=== PATIENT | male | born 1955 | race Caucasian/White ===

== ENCOUNTER 2024-11-25 12:27 | Outpatient (OUT) | payer MEDICARE, OTHER, SELFPAY ==
--- NOTE | 2024-11-25 12:36 | ECG_ITS ---
The [facility] Test Date: 2024-11-25 Pat Name: EVI NDIAYE Department: Room: - Gender: Male [employer]: : 1955 Requested By: MYRTLE MEJIA Order Number: [id number] Reading MD: EDER AWAD Measurements Intervals [place] Rate: 60 P: 67 CT: 165 QRS: 7 QRSD: 105 T: 51 QT: 417 QTc: 417 Interpretive Statements SINUS RHYTHM No previous ECG available for comparison Electronically Signed On 11-26-2024 6:59:49 EST by EDER AWAD
--- NOTE | 2024-11-25 12:36 | XR_ITS ---
The [address] [address] Patient Name: EVI NDIAYE MRN: [id number] date: 1955 Sex: M Assigned Patient Location: [facility] Current Patient Location: Accession/Order Number: [id number] Exam Date: 11/25/2024 13:12 Report Date: 11/26/2024 07:16 At the request of: MYRTLE MEJIA Procedure: XR chest 2V EXAMINATION: XR chest 2V HISTORY: Preop exam COMPARISON: No relevant comparison available. TECHNIQUE: PA and lateral FINDINGS: LUNGS: No significant pulmonary parenchymal abnormalities. VASCULATURE: No increased pulmonary vasculature. PLEURA: No pneumothorax, effusion, or pleural thickening. CARDIAC: No cardiomegaly or cardiac silhouette abnormality. MEDIASTINUM: No visible mass or adenopathy. BONES: No fracture or visible bone lesion. OTHER: Negative. XR/XR chest 2V IMPRESSION: No acute cardiopulmonary process Electronically authenticated by: DARYN VILA Date: 11/26/2024 07:16
--- NOTE | 2024-11-25 13:14 | P.GSHP_ITS ---
History of Present Illness History of Present Illness Chief complaint: prostate cancer Narrative: Patient presents for presurgical testing accompanied by his . The patient states he had an elevated PSA followed by an abnormal prostate biopsy. The patient states he had brachytherapy about 11 years ago for prostate cancer. He denies visible hematuria, dysuria, abdominal pain, fever, or any other complaints. Review of Systems ROS Narrative REVIEW OF SYSTEMS: Negative except as stated in HPI, ten or more systems reviewed. Constitutional: No fever, chills, weakness ENT: No sore throat or epistaxis Cardiovascular: No edema, chest pain, palpitations, or activity intolerance Respiratory: No shortness of breath, cough, or wheezing Musculoskeletal: No joint pain or swelling Gastrointestinal: No abdominal pain, constipation, diarrhea, or vomiting Genitourinary: No dysuria or visible hematuria Neurological: No numbness, tingling, weakness, or headache Psychiatric: No mood changes PFSH PFSH Medical History (Updated 11/25/24 @ 13:11 by Marquita Azar NP) History of brachytherapy ?Z92.3 - Personal history of irradiation (ICD-10) Neck pain ?M54.2 - Cervicalgia (ICD-10) Arthritis ?M19.90 - Unspecified osteoarthritis, unspecified site (ICD-10) Snores ?R06.83 - Snoring (ICD-10) Cataract ?H26.9 - Unspecified cataract (ICD-10) Nocturia ?R35.1 - Nocturia (ICD-10) Erectile dysfunction ?N52.9 - Male erectile dysfunction, unspecified (ICD-10) Kidney stones ?N20.0 - Calculus of kidney (ICD-10) Hematuria ?R31.9 - Hematuria, unspecified (ICD-10) Prostate cancer ?C61 - Malignant neoplasm of prostate (ICD-10) Surgical History (Updated 11/25/24 @ 13:11 by Marquita Azar NP) H/O cystoscopy ?Z98.890 - Other specified postprocedural states (ICD-10) History of colonoscopy ?Z98.890 - Other specified postprocedural states (ICD-10) History of appendectomy ?Z90.49 - Acquired absence of other specified parts of digestive tract (ICD- 10) History of arthroscopy of knee ?Z98.890 - Other specified postprocedural states (ICD-10) Hx of prostate biopsy ?Z98.890 - Other specified postprocedural states (ICD-10) History of cataract extraction with lens replacement (09/2024) Family History (Updated 11/25/24 @ 12:50 by Marquita Azar NP) Other Family history of diabetes mellitus Family history of lung cancer Family history of myocardial infarction Family history of prostate cancer Family history of seizures Social History (Updated 11/25/24 @ 12:47 by Marquita Azar NP) Within the past year, how often did you have a drink containing alcohol: never Score interpretation: A score less than 4 is consistent with normal alcohol consumption. Smoking status: Former smoker Non-prescribed substance use: denies use Highest level of school completed/degree received: Associate degree: academic program Meds Home Medications and Allergies Home Medications ?Medication ?Instructions ?Recorded ?Confirmed ?Type melatonin 10 mg capsule 10 mg PO DAILY 11/25/24 11/25/24 History Allergies Allergy/AdvReac Type Severity Reaction Status Date / Time No Known Drug Allergies Allergy Verified 11/25/24 12:41 Exam Narrative Exam Narrative: Constitutional: Awake, alert, comfortable, well-appearing, nontoxic, interactive, vital signs as charted Head: Normocephalic, atraumatic Neck: Supple, normal appearance, normal range of motion, no meningeal signs, no lymphadenopathy Respiratory: No respiratory distress, breath sounds clear Cardiovascular: Regular rate and rhythm, strong and regular heart tones Abdomen: Nontender, normal bowel sounds, soft, no CVA tenderness Musculoskeletal: Normal gait, no swelling or edema Skin: No rashes or induration, no lesions, only visible skin inspected Neuro: No neurological deficits, normal sensation Psychiatric: Oriented ?3, normal affect Assessment and Plan Assessment and Plan (1) Prostate cancer: Plan [facility] seed implant scheduled with Dr. Dykes December 12, 2024.
[2024-11-25 13:18] LABS: Basophils Percent Auto 0.5 % (0.2-2.0); Eosinophils Absolute Auto 0.2 10^3/uL (0.0-0.7); Eosinophils Percent Auto 2.6 % (0.9-7.0); Hematocrit 43.3 % (42.0-54.0); Hemoglobin 14.8 g/dL (14.0-18.0); Immature Granulocytes Abs Auto 0.03 10^3/uL (0.00-0.03); Immature Granulocytes Pct Auto 0.4 % (0.0-0.5); Lymphocytes Absolute Auto 1.8 10^3/uL (1.2-3.8); Lymphocytes Percent Auto 23.2 % (20.5-60.0); Mean Corpuscular HGB Conc 34.2 g/dL (29.9-35.2); Mean Corpuscular Hemoglobin 32.1 pg (25.9-34.0); Mean Corpuscular Volume 93.9 fL (80.0-94.0); Monocytes Absolute Auto 0.6 10^3/uL (0.3-0.8); Monocytes Percent Auto 8.1 % (1.7-12.0); Neutrophils Absolute Auto 5.2 10^3/uL (1.4-6.5); Neutrophils Percent Auto 65.2 % (43.0-75.0); Platelet Count 278 10^3/uL (150-450); Red Blood Count 4.61 10^6/uL (4.70-6.10); Red Cell Distribution Width 12.6 % (11.0-15.0); White Blood Count 7.9 10^3/uL (4.0-11.0)
[2024-11-25 13:24] LABS: Anion Gap 11.8; BUN Creatinine Ratio 27.5; Calcium 8.9 mg/dL (8.5-10.1); Carbon Dioxide 28.1 mmol/L (21.0-32.0); Chloride 106 mmol/L (98-107); Estimated GFR (African America >60 (>=60 mL/min/1.73m^2); Estimated GFR (Non-African Ame >60 (>=60 mL/min/1.73m^2); Glucose 109 mg/dL (74-106); Potassium 3.9 mmol/L (3.5-5.1); Sodium 142 mmol/L (136-145)
[2024-11-25 13:34] LABS: Partial Thromboplastin Time 26.8 sec (22.3-36.2); Prothrombin Time 10.6 sec (9.0-11.6)
== END 2024-11-25 12:28 | disposition home or self-care (01) ==
LOC: PST 12:28
PROVIDERS: PCP Internal Medicine; Visit Provider Urology
DX: Z01.810 Encounter for preprocedural cardiovascular examination (principal); Z01.812 Encounter for preprocedural laboratory examination; Z01.818 Encounter for other preprocedural examination; C61 Malignant neoplasm of prostate; R31.9 Hematuria, unspecified; N20.0 Calculus of kidney
CPT/HCPCS: 71046; 80048; 85025; 85610; 85730; 93005; G0463

== ENCOUNTER 2024-12-12 07:03 | Day surgery (SDC) | payer MEDICARE, OTHER, SELFPAY ==
[2024-11-25 13:02] VITALS: BP 148/81; PULSE 61; TEMP 36.3; O2SAT 97; BMI 29.2
--- OUTSIDE RECORDS SUMMARY | 2024-12-12 07:07 | XMS_ITS | CCD ---
Author Organization [facility] Care Team Providers Care Vocational Rehabilitation Counselor Name Role Phone Kendrick Swenson Primary Care Provider Joseph JOHN, Awais Primary Care Provider Kendrick Swenson MD Primary Care Provider Back , Awais Primary Care Provider Back Awais JOHN Primary Care Provider [phone] Back , Awais Primary Care Provider [phone] Back , Awais Primary Care Provider BACK AWAIS Primary Care Physician Back , Awais Primary Care Provider BackLuiz Primary Care Provider Kendrick Swenson MD Primary Care Provider Luiz Ruiz MD Primary Care Provider MD Myrtle Mejia Attending Provider Myrtle Mejia Attending Unavailable Myrtle Mejia Admitting Unavailable HERBERTH BALL Attending Unavailable VIN NG Referring Unavailable HERBERTH BALL Attending Unavailable Myrtle MEJIA R Attending Unavailable MEJIA, Myrtle R Attending Unavailable MEJIA, Myrtle R Attending Unavailable MEJIA, Myrtle R Attending Unavailable MEJIA, Myrtle R Attending Unavailable MEJIA, Myrtle R Referring Unavailable MEJIA, Myrtle R Attending Unavailable MEJIA, Myrtle R Attending Unavailable MEJIA, Myrtle R Attending Unavailable BACK, AWAIS Primary Care Unavailable BACK, AWAIS Referring Unavailable ZACHARY LEDESMA Referring Unavaila ble BACK, AWAIS Primary Care Unavailable BACK, AWAIS Primary Care Unavailable MEJIA, MYRTLE R Referring Unavailable MEJIA, MYRTLE R Referring Unavailable BACK, AWAIS Primary Care Unavailable BACK, AWAIS Referring Unavailable BACK, AWAIS Primary Care Unavailable SECOKKENDRICK Primary [facility] OLGAROlivia Attending Unavailable VALENCIAELEOlivia Lechuga Referring Unavailable BACK [facility] Primary Care Unavailable ENGELEROlivai Attending Unavailable ENGELEROlivia Referring Unavailable BACK, [facility] Primary Care Unavailable ENGELEROlivia Attending Unavailable BACK, [facility] Primary Care Unavailable OLGAROlivia Attending Unavailable SECOK KENDRICK CHRISTIANO Primary [facility] Allergies Allergy Classification Reported Allergen(s) Allergy Type Date of Onset Reaction(s) Facility (1 source) No Known Medication Allergies; Translations: [No Known Medication Allergies] Propensity to adverse reactions (disorder) [facility] Repository Medications Current Medications Medication Drug Class(es) Dates Sig (Normalized) Sig (Original) acetaminophen 325 mg oral tablet (3 sources) Start: 09-04-2020 take 2 tablets by mouth every four hours as needed for pain Tylenol 325 mg Tab 650 mg = 2 tab(s), Oral, q4hr, PRN as needed for pain Start Date: 09/04/20 Status: Ordered diphenhydrAMINE (4 sources) Histamine-1 Receptor Antagonist diphenhydrAMINE HCl (BENADRYL PO) Take by mouth 0 Active fluticasone propionate 0.05 mg/actuat metered dose nasal spray (2 sources) Corticosteroid Start: 03-18-2019 fluticasone (FLONASE) 50 MCG/ACT nasal spray Indications: Middle ear effusion, left 1 spray by Nasal route daily for 7 days 1 Bottle 0 03/18/2019 Active ibuprofen 200 mg oral tablet (20 sources) Nonsteroidal Anti-inflammatory Drug Start: 08-28-2020 take 3 tablets by mouth once daily as needed for pain ibuprofen 200 mg Tab 3, Oral, Daily, PRN as needed for pain, Refills(s) 0, Pain Start Date: 08/28/20 Status: Ordered take 1 tablet by jabier th every six hours as needed ibuprofen (ADVIL;MOTRIN) 200 MG tablet T subha 200 mg by mouth every 6 hours as needed. Active ketorolac tromethamine 5 mg/ml ophthalmic solution (1 source) Nonsteroidal Anti-inflammatory Drug, Cyclooxygenase Inhibitor Start: 08-27-2024 End: 09-26-2024 take 1 drop(s) into the eye(s) in the morning ketorolac (Acular) 0.5 % ophthalmic solution Indications: Age-related nuclear cataract of both eyes Administer 1 drop into affected eye(s) in the morning and 1 drop before bedtime. 5 mL 1 08/27/2024 09/26/2024 Active Leuprolide (4 sources) Gonadotropin Releasing Hormone Receptor Agonist leuprolide acetate (LUPRON DEPOT, 6 MONTH, INTRAMUSC.) Inject intramuscularly. Active ofloxacin 3 mg/ml ophthalmic solution (1 source) Quinolone Antimicrobial Start: 08-27-2024 End: 08-28-2024 take 1 drop(s) into the eye(s) five times daily ofloxacin (Ocuflox) 0.3 % ophthalmic solution Indications: Age-related nuclear cataract of both eyes Administer 1 drop into the right eye 5 (five) times a day for 1 day Starting 1 day before surgery, continue after surgery as directed 5 mL 1 08/27/2024 08/28/2024 Active prednisoLONE acetate 10 mg/ml ophthalmic suspension (1 source) Corticosteroid Start: 08-27-2024 End: 09-10-2024 prednisoLONE acetate (Pred-Forte) 1 % ophthalmic suspension Indications: Age-related nuclear cataract of both eyes Administer 1 drop into both eyes in the morning and 1 drop at noon and 1 drop in the evening and 1 drop before bedtime. Do all this for 14 days. 5 mL 1 08/27/2024 09/10/2024 Active Completed/Discontinued Medications Medication Drug Class(es) Dates Sig (Normalized) Sig (Original) gadobenate dimeglumine (MULTIHANCE) injection 20 mL (1 source) Start: 07-16-2024 End: 07-16-2024 take 1 dose intravenously once 20 mL, IntraVENous, IMG ONCE PRN, 1 dose, Starting on Mon07/16/24 at 0934, Until Mon07/16/24 at 1000, Other iv contrast (will be provided with radiology test) (2 sources) Start: 07-11-2024 End: 07-12-2024 iv contrast (will be provided with radiology test) MRI Liver Inject, intravenously, once for 1 dose. No IV access, insert saline lock prior to the beginning of sedation, infusion, injection of imaging exam. Discontinue saline lock post exam. If Pt. has a central line or IVAD, may access for administration according to line specific nursing protocol. Once exam is complete flush line and de-access according to line specific nursing protocol in the MR contrast administration guidelines link. 1 Each 07/11/2024 07/12/2024 Start: 07-11-2024 End: 07-12-2024 iv contrast (will be provide d with radiology test) MRI Prostate Inject, intravenously, once for 1 dose. No IV access, insert saline lock prior to the beginning of sedation, infusion, injection of imaging exam. Discontinue saline lock post exam. If Pt. has a central line or IVAD, may access for administration according to line specific nursing protocol. Once exam is complete flush line and de-access according to line specific nursing protocol in the MR contrast administration guidelines link. 1 Each 07/11/2024 07/12/2024 Problems Active Problems Problem Classification Problem Date Documented Da te Episodic/Chronic Calculus of urinary tract (11 sources) H/O: urinary stone; Translations: [Personal history of urinary calculi] Onset: 12-19-2022 Episodic Cancer of prostate (7 sources) Malignant tumor of prostate; Translations: [Malignant neoplasm of prostate] Onset: 09-10-2024 08-30-2024 Chronic Cataract (7 sources) Bilateral age-related nuclear cataracts; Translations: [Age-related nuclear cataract, bilateral] Onset: 08-27-2024 08-27-2024 Chronic Diabetes mellitus without complication (3 sources) Hyperglycemia; Translations: [Hyperglycemia, unspecified] Onset: 10-01-2024 Episodic Genitourinary symptoms and ill-defined conditions (8 sources) Microscopic hematuria; Translations: [Other microscopic hematuria] Onset: 12-19-2022 Episodic Joint disorders and dislocations; trauma-related (4 sources) Tear of medial meniscus of knee; Translations: [Other tear of medial meniscus, current injury, right knee, initial encounter] Episodic Comment on above: right Joint disorders and dislocations; trauma-related (1 source) Internal derangement of left knee; Translations: [Internal derangement of left knee] Osteoarthritis (7 sources) Osteoarthritis of knee; Translations: [Primary gonarthrosis, bilateral] Onset: 10-09-2023 08-28-2020 Chronic Other gastrointestinal disorders (1 source) Diarrhea; Translations: [Diarrhea, unspecified] 12-03-2024 Episodic Other gastrointestinal disorders (1 source) Diarrhea, unspecified; Translations: [Diarrhea, unspecified] Onset: 12-03-2024 Episodic Other liver diseases (1 source) Lesion of liver; Translations: [Liver disease, unspecified] 07-16-2024 Chronic Other liver diseases (1 source) Liver disease, unspecified; Translations: [Liver disease, unspecified] Onset: 07-16-2024 Chronic Other male genital disorders (3 sources) Impotence 11-15-2019 Chronic Other non-traumatic joint disorders (1 source) Pain in right knee; Translations: [Pain in right knee] Episodic Other non-traumatic joint disorders (1 source) Pain in left knee; Translations: [Left knee pain, unspecified chronicity] Other screening for suspected conditions (not mental disorders or infectious disease) (20 sources) Patient encounter status; Translations: [Encounter for screening for malignant neoplasm of colon] Onset: 11-14-2012 Resolved: 09-24-2018 09-24-2018 Episodic Residual codes; unclassified (1 source) Pain; Translations: [Pain, unspecified] Episodic Unclassified (3 sources) Asymptomatic microscopic hematuria 12-19-2022 Past or Other Problems Problem Classification Problem Date Documented Da te Episodic/Chronic Cancer of prostate (20 sources) History of malignant neoplasm of prostate; Translations: [Personal history of malignant neoplasm of prostate] Onset: 06-19-2014 03-18-2019 Episodic Other and unspecified benign neoplasm (20 sources) Tubular adenoma of colon; Translations: [Benign neoplasm of colon, unspecified] Onset: 11-22-2012 11-22-2012 Episodic Other and unspecified benign neoplasm (20 sources) Tubular adenoma ; Translations: [Benign neoplasm, unspecified site] Onset: 11-22-2012 Resolved: 11-22-2012 11-22-2012 Episodic Unclassified (5 sources) Patient encounter status; Translations: [Colon cancer screening] Onset: 11-14-2012 Resolved: 09-24-2018 09-24-2018 Unclassified (8 sources) Onset: 09-29-2022 Resolved: 10-09-2023 10-09-2023 Viral infection (11 sources) COVID-19; Translations: [Other specified viral infection] Onset: 11-09-2021 11-09-2021 Episodic Results Test Name Value Interpretation Reference Range Facility CBC with Auto Differentialon 12-03-2024 Basophils (Bld) [#/Vol] 0.05 10*3/uL [facility] Immature granulocytes (Bld) [#/Vol] 0.02 10*3/uL [facility] Interpretation and review of laboratory results Abnormal [facility] Lymphocytes/100 WBC (Bld) 1.56 % [facility] Monocytes/100 WBC (Bld) 0.62 % [facility] Neutrophils/100 WBC (Bld) 60 % 39 - 75 % [facility] Segmented neutrophils/100 WBC (Bld) 3.96 % [facility] WBC other (Bld) [#/Vol] 6.5 [facility] CBC with Diffon 12-03-2024 Basophils/100 WBC (Bld) 1 % Normal 0-2 [facility] Comment on above: Performed By: #### L TIA POSADA, CDP #### [facility] [address] [place] [address] Manager Export: Mathew Alanis MD Eosinophils (Bld) [#/Vol] 0.30 10*3/uL Normal 0.00-0.40 [facility] Comment on above: Performed By: #### L TIA POSADA, CDP #### [facility] [address] [place] [phone] Manager Export: Mathew Alanis MD Eosinophils/100 WBC (Bld) 5 % Normal 0-5 [facility] Comment on above: Performed By: #### L SWETHA CP, CDP #### [facility] [address] [place] [address] Manager Export: Mathew Alanis MD Erythrocyte distribution width (RBC) [Ratio] 12.5 % Normal 12.1-15.2 [facility] Comment on above: Performed By: #### L SWETHA CP, CDP #### [facility] [address] [place] [phone] Manager Export: Mathew Alanis MD Hematocrit (Bld) [Volume fraction] 42.9 % Normal 41.0-53.0 [facility] Comment on above: Performed By: #### L TIA POSADA, CDP #### [facility] [address] [place], [place] [id number] Manager Export: Mathew Alanis MD Hemoglobin (Bld) [Mass/Vol] 14.8 g/dL Normal 13.5-17.5 [facility] Comment on above: Performed By: #### L TIA POSADA, CDP #### [facility] [address] [place], [place] [phone] Manager Export: Mathew Alanis MD Immature granulocytes/100 WBC (Bld) 0 % Normal 0-5 [facility] Comment on above: Performed By: #### L TIA POSADA, CDP #### [facility] [address] [place], [place] [phone] Manager Export: Mathew Alanis MD Lymphocytes/100 WBC (Bld) 24 % Normal 13-44 [facility] Comment on above: Performed By: #### L TIA POSADA, CDP #### [facility] [address] [place], [place] [id number] Manager Export: Mathew Alanis MD MCH (RBC) [Entitic mass] 31.8 pg Normal 26.0-34.0 [facility] Comment on above: Performed By: #### L TIA POSADA, CDP #### [facility] [address] [place], [place] [id number] Manager Export: Mathew Alanis MD MCHC (RBC) [Mass/Vol] 34.5 g/dL Normal 31.0-37.0 [facility] Comment on above: Performed By: #### L TIA POSADA, CDP #### [facility] [address] [place] [address] Manager Export: Mathew Alanis MD MCV (RBC) [Entitic vol] 92.1 fL Normal 80.0-100.0 [facility] Comment on above: Performed By: #### L TIA POSADA, CDP #### [facility] [address] [place] [address] Manager Export: Mathew Alanis MD Monocytes/100 WBC (Bld) 10 % High 5-9 [facility] Comment on above: Performed By: #### L TIA POSADA, CDP #### [facility] [address] [place] [address] Manager Export: Mathew Alanis MD Platelet mean volume (Bld) [Entitic vol] 10.1 fL Normal 6.0-12.0 [facility] Comment on above: Performed By: #### L TIA POSADA, CDP #### [facility] [address] [place] [address] Manager Export: Mathew Alanis MD Platelets (Bld) [#/Vol] 261 10*3/uL Normal 140-450 [facility] Comment on above: Performed By: #### L TIA POSADA, CDP #### [facility] [address] [place] [phone] Manager Export: Mathew Alanis MD RBC (Bld) [#/Vol] 4.66 10*6/uL Normal 4.50-5.90 [facility] Comment on above: Performed By: #### L TIA POSADA, CDP #### [facility] [address] [place] [address] Manager Export: Mathew Alanis MD Abs. Basophil 0.05 k/uL Normal 0.00-0.20 [facility] Comment on above: Performed By: #### L TIA POSADA, CDP #### [facility] [address] [place] [address] Manager Export: Mathew Alanis MD Abs.Imm.Granulocyte 0.02 k/uL Normal 0.00-0.30 [facility] Comment on above: Performed By: #### L IP CP, CDP #### [facility] [address] [place] [address] Manager Export: Matehw Alanis MD Abs.Neutrophil (Seg) 3.96 k/uL Normal 2.1-6.5 [facility] Comment on above: Performed By: #### L SWETHA CP, CDP #### [facility] [address] [place] [address] Manager Export: Mathew Alanis MD Lymphocytes (Bld) [#/Vol] 1.56 10*3/uL Normal 1.00-4.80 [facility] Comment on above: Performed By: #### L SWETHA CP, CDP #### [facility] [address] [place] [address] Manager Export: Mathew Alanis MD Monocytes (Bld) [#/Vol] 0.62 10*3/uL Normal 0.00-1.00 [facility] Comment on above: Performed By: #### L SWETHA CP, CDP #### [facility] [address] [place] [address] Manager Export: Mathew Alanis MD Neutrophil (Seg) 60 % Normal 39-75 [facility] Comment on above: Performed By: #### L SWETHA CP, CDP #### [facility] [address] [place] [address] [phone]) Manager Export: Mathew Alanis MD WBC (Bld) [#/Vol] 6.5 10*3/uL Normal 3.5-11.0 [facility] Comment on above: Performed By: #### L SWETHA CP, CDP #### [facility] [address] [place] [address] Manager Export: Mathew Alanis MD Comp Metabolic Profon 2024 Albumin [Mass/Vol] 4.2 g/dL Normal 3.5-5.2 [facility] Comment on above: Performed By: #### L IP, CP, CDP #### [facility] [address] [place], [place] [phone] Manager Export: Mathew Alanis MD Alkaline Phos 84 U/L Normal 40-129 [facility] Comment on above: Performed By: #### L IP, CP, CDP #### [facility] [address] [place], [place] [phone] Manager Export: Mathew Alanis MD ALT [Catalytic activity/Vol] 20 U/L Normal 5-41 [facility] Comment on above: Performed By: #### L IP, CP, CDP #### [facility] [address] [place], [place] [phone] Manager Export: Mathew Alanis MD Anion gap [Moles/Vol] 8 mmol/L Low 9-17 [facility] Comment on above: Performed By: #### L IP, CP, CDP #### [facility] [address] [place], [place] [phone] Manager Export: Mathew Alanis MD AST [Catalytic activity/Vol] 20 U/L Normal <40 [facility] Comment on above: Performed By: #### L IP, CP, CDP #### [facility] [address] [place], [place] [phone] Manager Export: Mathew Alanis MD Bilirubin [Mass/Vol] 0.6 mg/dL Normal 0.3-1.2 [facility] Comment on above: Performed By: #### L IP, CP, CDP #### [facility] [address] [place] [address] Manager Export: Mathew Alanis MD BUN/CRE Ratio 21 High 9-20 [facility] Comment on above: Performed By: #### L IP, CP, CDP #### [facility] [address] [place] [address] Manager Export: Mathew Alanis MD Calcium [Mass/Vol] 9.1 mg/dL Normal 8.6-10.4 [facility] Comment on above: Performed By: #### L IP, CP, CDP #### [facility] [address] [place], [place] [phone] Manager Export: Mathew Alanis MD Chloride [Moles/Vol] 101 mmol/L Normal 98-107 [facility] Comment on above: Performed By: #### L IP, CP, CDP #### [facility] [address] [place] [address] Manager Export: Mathew Alanis MD CO2 [Moles/Vol] 28 mmol/L Normal 20-31 [facility] Comment on above: Performed By: #### L IP, CP, CDP #### [facility] [address] [place] [address] Manager Export: Mathew Alanis MD Creatinine [Mass/Vol] 1.0 mg/dL Normal 0.7-1.2 [facility] Comment on above: Performed By: #### L SWETHA CP, CDP #### [facility] [address] [place] [address] Manager Export: Mathew Alanis MD GFR/1.73 sq M.predicted among non-blacks MDRD (S/P/Bld) [Vol rate/Area] 81 mL/min/{1.73_m2} Normal >60 [facility] Comment on above: Result Comment: These results are not intended for use in patients <18 years of age. eGFR results are calculated without a race factor using the 2020 CKD-EPI equation. Careful clinical correlation is recommended, particularly when comparing to results calculated using previous equations. The CKD-EPI equation is less accurate in patients with extremes of muscle mass, extra-renal metabolism of creatine, excessive creatine ingestion, or following therapy that affects renal tubular secretion. Performed By: #### L IP, CP, CDP #### [facility] [address] [place], [place] [phone] Manager Export: Mathew Alanis MD Glucose [Mass/Vol] 82 mg/dL Normal 70-99 [facility] Comment on above: Performed By: #### L IP CP, CDP #### [facility] [address] [place], [place] [phone] Manager Export: Mathew Alanis MD Potassium [Moles/Vol] 4.0 mmol/L Normal 3.7-5.3 [facility] Comment on above: Performed By: #### L IP CP, CDP #### [facility] [address] [place], [place] [phone] Manager Export: Mathew Alanis MD Protein [Mass/Vol] 7.0 g/dL Normal 6.4-8.3 [facility] Comment on above: Performed By: #### L SWETHA CP, CDP #### [facility] [address] [place], [place] [phone] Manager Export: Mathew Alanis MD Sodium [Moles/Vol] 137 mmol/L Normal 135-144 [facility] Comment on above: Performed By: #### L SWETHA CP, CDP #### [facility] [address] [place], [place] [phone] Manager Export: Mathew Alanis MD Urea nitrogen [Mass/Vol] 21 mg/dL Normal 8-23 [facility] Comment on above: Performed By: #### L IP CP, CDP #### [facility] [address] [place], [place] [phone] Manager Export: Mathew Alanis MD Comprehensive Metabolic Pane alexis 12-03-2024 Albumin [Mass/Vol] 4.2 g/dL 3.5 - 5.2 g/dL [facility] ALP [Catalytic activity/Vol] 84 U/L 40 - 129 U/L [facility] ALT [Catalytic activity/Vol] 20 U/L 5 - 41 U/L [facility] Anion gap [Moles/Vol] 8 mmol/L Low 9 - 17 mmol/L [facility] AST [Catalytic activity/Vol] 20 U/L NINF - 40 U/L [facility] Bilirubin [Mass/Vol] 0.6 mg/dL 0.3 - 1 .2 mg/dL [facility] Calcium [Mass/Vol] 9.1 mg/dL 8.6 - 10. 4 mg/dL [facility] Chloride [Moles/Vol] 101 mmol/L 98 - 10 7 mmol/L [facility] CO2 [Moles/Vol] 28 mmol/L 20 - 31 mmol/L [facility] Creatinine [Mass/Vol] 1.0 mg/dL 0.7 - 1.2 mg/dL [facility] Est, Glom Filt Rate 81 - PINF [facility] Comment on above: These results are not intended for use in patients <18 years of age. eGFR results are calculated without a race factor using the 2020 CKD-EPI equation. Careful clinical correlation is recommended, particularly when comparing to results calculated using previous equations. The CKD-EPI equation is less accurate in patients with extremes of muscle mass, extra-renal metabolism of creatine, excessive creatine ingestion, or following therapy that affects renal tubular secretion. Glucose [Mass/Vol] 82 mg/dL 70 - 99 mg/dL [facility] Interpretation and review of laboratory results Abnormal [facility] Potassium [Moles/Vol] 4.0 mmol/L 3.7 - 5.3 mmol/L [facility] Protein [Mass/Vol] 7.0 g/dL 6.4 - 8.3 g/dL [facility] Sodium [Moles/Vol] 137 mmol/L 135 - 144 mmol/L [facility] Urea nitrogen [Mass/Vol] 21 mg/dL 8 - 23 mg/dL [facility] Urea nitrogen/Creatinine [Mass ratio] 21 mg/mg High 9 - 20 [facility] Lipaseon 12-03-2024 Lipase [Catalytic activity/Vol] 23 U/L 13 - 60 U/L [facility] Lipase [Catalytic activity/Vol] 23 U/L Normal 13-60 [facility] Comment on above: Performed By: #### L IP, CP, CDP #### [facility] [address] [place] [address] Manager Export: Mathew Alanis MD No Panel Informationon 12-03 Asael Zavala [facility] CNOVon 11-28-2024 CNOV Office Visit (RADTSA ) GILBERTO NDIAYE ([id number]) 1955 M Date Time Provider Department 11/28/24 10:00 AM Olivia LEDESMA During your visit today, we recorded the following information about you: Olivia Ledesma MD 12/05/2024 11:30 AM Signed UNIVERSAL PROTOCOL / SAFETY CHECKLIST Procedure to be Performed: Prostate volume study Sign In: A Moment of CARE was completed. Personnel directly involved with the procedure wore the appropriate PPE (Personal Protective Equipment). Patient/Surrogate Stated/Verified: PATIENT VERIFIED(optional for EMERGENT procedures): Patient name, Date of , Relevant allergies, and The intended procedure Time Out Communication: Intended patient and procedure match the source documents. Consent documented and matches the intended procedure. Sign Out: SIGN OUT (optional for EMERGENT procedures): No specimen collected. All instruments, equipment, possible retained foreign bodies accounted for. Olivia Ledesma MD Referring Provider: Olivia LEDESMA [[id number]] Allergies As of Date: 11/28/2024 (No Known Allergies) Date Reviewed: 10/09/2024 Reviewed by: Marquita Blackmon RN - Fully Assessed Reason for Visit: Volume Study [4052] Primary Visit Diagnosis:Malignant neoplasm of prostate (HCC) [C61] Prescriptions as of 12/05/2024 - leuprolide acetate (LUPRON DEPOT, 6 MONTH, INTRAMUSC.) Inject intramuscularly. Problem List As Of Date 11/28/2024 Noted Resolved Personal history of malignant neoplasm of prost*06/19/2014 Encounter Status:Closed by Olivia LEDESMA on 12/05/24 [facility] CNOVon 10-09-2024 CNOV Office Visit (RADTSA ) GILBERTO NDIAYE ([id number]) 1955 M Date Time Provider Department 10/09/24 10:15 AM Olivia LEDESMA RADTSA During your visit today, we recorded the following information about you: Temperature Pulse Respiration Blood pressure 96.7 degrees 65/minute 18/minute 152/82 Weight 99 kg Marquita Blackmon RN 10/09/2024 10:25 AM Signed AUA 4 JEFF Ruano G Phillip, MD 10/18/2024 9:56 AM Signed Radiation Oncology - Follow Up Note PATIENT NAME: Gilberto Ndiaye PATIENT DIAGNOSIS: Prostate cancer, with prior brachytherapy, June 2013 INTERVAL HISTORY: The patient is in today for further follow-up. Patient underwent biopsy 09/13/2024 with the finding of Johan 8 (4+4) and Jupiter 7 (4+3) adenocarcinoma from multiple cores within the right cores submitted. No evidence of disease within the left aspect of the prostate. He underwent prostate MRI on 08/21/2024 which demonstrated: IMPRESSION: 1. Right mid/base peripheral zone 0.7 cm lesion which is suspicious for clinically significant prostate cancer. Mild bulging of the capsule, equivocal for extraprostatic extension. No definite neurovascular bundle or seminal vesicle involvement. PI-RADS 4. 2. Diffusely T2 hypointense appearance of the prostate gland, in keeping with post treatment change. 3. Prostate volume of approximately 21 cc. PSA HISTORY: PSA (ng/mL) Date Value 05/12/2014 0.80 PSA. (no units) Date Value 10/01/2024 2.10 08/18/2016 0.19 01/12/2016 0.17 2014 0.59 He underwent further evaluation with PSMA PET on 07/07/2024, findings: IMPRESSION: HEAD/NECK: * No PSMA expressing neoplastic process. CHEST: * No PSMA expressing neoplastic process. ABDOMENS/PELVIS: * Focal PSMA uptake in the right posterior peripheral zone of the prostate, suspicious for recurrent tumor * Focal PSMA uptake in the medial right hepatic lobe, indeterminate. Consider correlation with liver MRI. MUSCULOSKELETAL: * No PSMA expressing neoplastic process. ALLERGIES: ALLERGIES No Known Allergies MEDICATIONS: leuprolide acetate (LUPRON DEPOT, 6 MONTH, INTRAMUSC.) Inject intramuscularly. PERTINENT REVIEW OF SYSTEMS: Hematuria: none Dysuria: none Incontinence: none Urgency: none Catheter use: none Medications to aid urination: no - Total AUA Score: 4 Bowel movement frequency: 1-3/day Bowel movement quality: normal Blood per rectum: none PHYSICAL EXAM: 10/09/24 1008 BP: 152/82 Pulse: 65 Resp: 18 Temp: (!) 35.9 ?C (96.7 ?F) SpO2: 97% Weight: 99 kg (218 lb 4.1 oz) General Appearance: Well appearing, alert, in no acute distress, well-hydrated, well nourished.. ASSESSMENT/PLAN: Prostate cancer, Johan grade group 1 status post primary brachytherapy June 2013, with recent rising PSA and and abnormal PSMA PET within the prostate biopsy showing recurrent adenocarcinoma, Johan 8 (4+4). Unfortunately recent biopsy confirming recurrent disease within the right aspect of the prostate corresponding to MRI findings. Interestingly biopsies from the left aspect of the gland without evidence of involvement. Does want to pursue local treatment. We discussed potential local treatment options again including consideration of prostatectomy or other ablative measures. We also discussed potential management hormonal therapy alone. Also discussed brachytherapy or external beam (SBRT) salvage treatment. There are several single institutional studies showing efficacy and relative safety of self brachytherapy for both external beam and brachytherapy recurrences. In addition to the study showing relative safety and efficacy of brachytherapy for salvage external beam failures. I do feel that the consideration of brachytherapy is reasonable in this patient given apparent localization to right side plan, length of time from prior treatment over 10 years, and very good current related function. After long discussion patient wants to pursue brachytherapy. Patient not interested in travel to outside center for treatment or other surgical opinion/considerations . Will plan to proceed with salvage brachytherapy to the right prostate. Acute and long-term risks of salvage radiation including potential increased risk repeat radiation including potential chronic urethral issues, and potential fistula. Patient expressed an understanding of the information presented. I do feel that salvage treatment is warranted given localized presentation. Patient will return for volume study will plan to coordinate brachytherapy with Dr. Mejia. Signed by: Olivia Ledesma MD CC Dr. Mejia Referring Provider: Olivia LEDESMA [[id number]] Allergies As of Date: 10/09/2024 (No Known Allergies) Date Reviewed: 10/09/2024 Reviewed by: Marquita Blackmon, RN - Fully Assessed Reason for (more content not included)... Normal [facility] Comp Metabolic Profon 2023 Albumin [Mass/Vol] 4.2 g/dL Normal 3.5-5.2 [facility] Comment on above: Performed By: #### L IPR, GLYHGB #### [facility] [address] [place] [address] Manager Export: Joshua Eddy MD #### CP #### [facility] [address] [place] [address] Manager Export: Mathew Alanis MD Alkaline Phos 88 U/L Normal 40-129 [facility] Comment on above: Performed By: #### L IPR, GLYHGB #### [facility] [address] [place] [address] Manager Export: Joshua Eddy MD #### CP #### [facility] [address] [place] [address] Manager Export: Mathew Alanis MD ALT [Catalytic activity/Vol] 13 U/L Normal 5-41 [facility] Comment on above: Performed By: #### L IPR, GLYHGB #### [facility] [address] [place] [address] Manager Export: Joshua Eddy MD #### CP #### [facility] [address] [place], [place] [phone] Manager Export: Mathew Alanis MD Anion gap [Moles/Vol] 11 mmol/L Normal 9-17 [facility] Comment on above: Performed By: #### L IPR, GLYHGB #### [facility] [address] [place] [address] Manager Export: Joshua Eddy MD #### CP #### [facility] [address] [place] [address] Manager Export: Mathew Alanis MD AST [Catalytic activity/Vol] 18 U/L Normal <40 [facility] Comment on above: Performed By: #### L IPR, GLYHGB #### [address] [address] Manager Export: Joshua Eddy MD #### CP #### [facility] [address] [place] [address] Manager Export: Mathew Alanis MD Bilirubin [Mass/Vol] 0.8 mg/dL Normal 0.3-1.2 [facility] Comment on above: Performed By: #### L IPR, GLYHGB #### [address] [address] Manager Export: Joshua Eddy MD #### CP #### [facility] [address] [place] [address] Manager Export: Mathew Alanis MD BUN/CRE Ratio 19 Normal 9-20 [facility] Comment on above: Performed By: #### L IPR, GLYHGB #### [address] [address] Manager Export: Joshua Eddy MD #### CP #### [facility] [address] [place], [place] [phone] Manager Export: Mathew Alanis MD Calcium [Mass/Vol] 9.2 mg/dL Normal 8.6-10.4 [facility] Comment on above: Performed By: #### L IPR, GLYHGB #### [facility] [address] [place] [address] Manager Export: Joshua Eddy MD #### CP #### [facility] [address] [place], [place] [phone] Manager Export: Mathew Alanis MD Chloride [Moles/Vol] 102 mmol/L Normal 98-107 [facility] Comment on above: Performed By: #### L IPR, GLYHGB #### [address] [address] Manager Export: Joshua Eddy MD #### CP #### [facility] [address] [place], [place] [phone] Manager Export: Mathew Alanis MD CO2 [Moles/Vol] 26 mmol/L Normal 20-31 [facility] Comment on above: Performed By: #### L IPR, GLYHGB #### [address] [address] Manager Export: Joshua Eddy MD #### CP #### [facility] [address] [place], [place] [phone] Manager Export: Mathew Alanis MD Creatinine [Mass/Vol] 0.9 mg/dL Normal 0.7-1.2 [facility] Comment on above: Performed By: #### L IPR, GLYHGB #### [address] [phone] Manager Export: Joshua Eddy MD #### CP #### [facility] [address] [place], [place] [phone] Manager Export: Mathew Alanis MD GFR/1.73 sq M.predicted among non-blacks MDRD (S/P/Bld) [Vol rate/Area] mL/min/{1.73_m2} Normal >60 [facility] Comment on above: Result Comment: These results are not intended for use in patients <18 years of age. eGFR results are calculated without a race factor using the 2020 CKD-EPI equation. Careful clinical correlation is recommended, particularly when comparing to results calculated using previous equations. The CKD-EPI equation is less accurate in patients with extremes of muscle mass, extra-renal metabolism of creatine, excessive creatine ingestion, or following therapy that affects renal tubular secretion. Performed By: #### L IPR, GLYHGB #### [address] [address] Manager Export: Joshua Eddy MD #### CP #### [facility] [address] [place], [place] [phone] Manager Export: Mathew Alanis MD Glucose [Mass/Vol] 99 mg/dL Normal 70-99 [facility] Comment on above: Performed By: #### L IPR, GLYHGB #### [address] [address] Manager Export: Joshua Eddy MD #### CP #### [facility] [address] [place], [place] [phone] Manager Export: Mathew Alanis MD Potassium [Moles/Vol] 4.2 mmol/L Normal 3.7-5.3 [facility] Comment on above: Performed By: #### L IPR, GLYHGB #### [address] [address] Manager Export: Joshua Eddy MD #### CP #### [facility] [address] [place], [place] [phone] Manager Export: Mathew Alanis MD Protein [Mass/Vol] 7.1 g/dL Normal 6.4-8.3 [facility] Comment on above: Performed By: #### L IPR, GLYHGB #### [address] [phone] Manager Export: Joshua Eddy MD #### CP #### [facility] [address] [place] [address] Manager Export: Mathew Alanis MD Sodium [Moles/Vol] 139 mmol/L Normal 135-144 [facility] Comment on above: Performed By: #### L IPR, GLYHGB #### [facility] [address], [place] [phone] Manager Export: Joshua Eddy MD #### CP #### [facility] [address] [place] [address] Manager Export: Mathew Alanis MD Urea nitrogen [Mass/Vol] 17 mg/dL Normal 8-23 [facility] Comment on above: Performed By: #### L IPR, GLYHGB #### [facility] [address], [place] [phone] Manager Export: Joshua Eddy MD #### CP #### [facility] [address] [place] [address] Manager Export: Mathew Alanis MD [facility] Metabolic Pane [facility] 10-01-2024 Albumin [Mass/Vol] 4.2 g/dL 3.5 - 5.2 g/dL [facility] ALP [Catalytic activity/Vol] 88 U/L 40 - 129 U/L [facility] ALT [Catalytic activity/Vol] 13 U/L 5 - 41 U/L [facility] Anion gap [Moles/Vol] 11 mmol/L 9 - 17 mmol/L [facility] AST [Catalytic activity/Vol] 18 U/L NINF - 40 U/L [facility] Bilirubin [Mass/Vol] 0.8 mg/dL 0.3 - 1 .2 mg/dL [facility] Calcium [Mass/Vol] 9.2 mg/dL 8.6 - 10. 4 mg/dL [facility] Chloride [Moles/Vol] 102 mmol/L 98 - 10 7 mmol/L [facility] CO2 [Moles/Vol] 26 mmol/L 20 - 31 mmol/L [facility] Creatinine [Mass/Vol] 0.9 mg/dL 0.7 - 1.2 mg/dL [facility] Mariola France - PINF [facility] Comment on above: These results are not intended for use in patients <18 years of age. eGFR results are calculated without a race factor using the 2020 CKD-EPI equation. Careful clinical correlation is recommended, particularly when comparing to results calculated using previous equations. The CKD-EPI equation is less accurate in patients with extremes of muscle mass, extra-renal metabolism of creatine, excessive creatine ingestion, or following therapy that affects renal tubular secretion. Glucose [Mass/Vol] 99 mg/dL 70 - 99 mg/dL [facility] Potassium [Moles/Vol] 4.2 mmol/L 3.7 - 5.3 mmol/L [facility] Protein [Mass/Vol] 7.1 g/dL 6.4 - 8.3 g/dL [facility] Sodium [Moles/Vol] 139 mmol/L 135 - 144 mmol/L [facility] Urea nitrogen [Mass/Vol] 17 mg/dL 8 - 23 mg/dL [facility] Urea nitrogen/Creatinine [Mass ratio] 19 mg/mg 9 - 20 [facility] Hemoglobin A1Con 10-01-2024 Average glucose Estimated from glycated hemoglobin (Bld) [Mass/Vol] 105 mg/dL [facility] Comment on above: The ADA and AACC rec ommend providing the estimated average glucose result to permit better patient understanding of their HBA1c result. HbA1c (Bld) [Mass fraction] 5.3 % 4.0 - 6.0 % [facility] Glucose [Mass/Vol] 105 mg/dL Normal [facility] Comment on above: Result Comment: The ADA and AACC recommend providing the estimated average glucose result to permit better patient understanding of their HBA1c result. Performed By: #### L IPR, GLYHGB #### [employer] [facility] [place] [address] Manager Export: Joshua Eddy MD #### CP #### [facility] [address] [place] [address] Manager Export: Mathew Alanis MD HbA1c (Bld) [Mass fraction] 5.3 % Normal 4.0-6.0 [facility] Comment on above: Performed By: #### L IPR, GLYHGB #### [facility] [address] [place] [address] Manager Export: Joshua Eddy MD #### CP #### [facility] [address] [place] [address] Manager Export: Mathew Alanis MD Lipid Panelon 10-01-2024 Cholesterol [Mass/Vol] 199 mg/dL 0 - 199 mg/dL [facility] Comment on above: Cholesterol Guidelines: <200 Desirable 200-240 Borderline >240 Undesirable Cholesterol in HDL [Mass/Vol] 58 mg/dL 40 - PINF mg/dL [facility] Comment on above: HDL Guidelines: <40 Undesirable 40-59 Borderline >59 Desirable Cholesterol in LDL [Mass/Vol] 125 mg/dL High 0 - 100 mg/dL [facility] Comment on above: LDL Guidelines: <100 Desirable 100-129 Near to/above Desirable 130-159 Borderline >159 Undesirable Direct (measured) LDL and calculated LDL are not interchangeable tests. Cholesterol in VLDL [Mass/Vol] 16 mg/dL 1 - 30 mg/dL [facility] Cholesterol.total/Cho lesterol in HDL [Mass ratio] 3.4 {ratio} [facility] Interpretation and review of laboratory results Abnormal [facility] Triglyceride [Mass/Vol] 81 mg/dL NINF - 150 mg/dL [facility] Comment on above: Triglyceride Guidelines: <150 Desirable 150-199 Borderline 200-499 High >499 Very high Based on AHA Guidelines for fasting triglyceride, August 2012. [facility] Lipid Profileon 10-01-2024 Cholesterol [Mass/Vol] 199 mg/dL Normal 0-199 [facility] Comment on above: Result Comment: Cholesterol Guidelines: <200 Desirable 200-240 Borderline >240 Undesirable Performed By: #### L IPR, GLYHGB #### [facility] [address] [place] [address] Manager Export: Joshua dEdy MD #### CP #### [facility] [address] [place] [address] Manager Export: Mathew Alanis MD Cholesterol in HDL [Mass/Vol] 58 mg/dL Normal >40 [facility] Comment on above: Result Comment: HDL Guidelines: <40 Undesirable 40-59 Borderline >59 Desirable Performed By: #### L IPR, GLYHGB #### [address] [place] [place] [address] Manager Export: Joshua Eddy MD #### CP #### [facility] [address] [place], [place] [phone] Manager Export: Mathew Alanis MD Cholesterol in LDL [Mass/Vol] 125 mg/dL High 0-100 [facility] Comment on above: Result Comment: LDL Guidelines: <100 Desirable 100-129 Near to/above Desirable 130-159 Borderline >159 Undesirable Direct (measured) LDL and calculated LDL are not interchangeable tests. Performed By: #### L IPR, GLYHGB #### [facility] [address] [place] [address] Manager Export: Joshua Eddy MD #### CP #### [facility] [address] [place] [address] Manager Export: Mathew Alanis MD Cholesterol in VLDL [Mass/Vol] 16 mg/dL Normal 1-30 [facility] Comment on above: Performed By: #### L IPR, GLYHGB #### [address] [address] Manager Export: Joshua Eddy MD #### CP #### [facility] [address] [place], [place] [phone] Manager Export: Mathew Alanis MD Cholesterol.total/Cho lesterol in HDL [Mass ratio] 3.4 {ratio} Normal [facility] Comment on above: Performed By: #### L IPR GLYHGB #### [facility] [address] [place] [address] Manager Export: Joshua Eddy MD #### CP #### [facility] [address] [place], [place] [phone] Manager Export: Mathew Alanis MD Triglyceride [Mass/Vol] 81 mg/dL Normal <150 [facility] Comment on above: Result Comment: Triglyceride Guidelines: <150 Desirable 150-199 Borderline 200-499 High >499 Very high Based on AHA Guidelines for fasting triglyceride, August 2012. Performed By: #### L FELICE GLYHGB #### [facility] [address] [place] [address] Manager Export: Joshua Eddy MD #### CP #### [facility] [address] [place], [place] [phone] Manager Export: Mathew Alanis MD No Panel Informationon 10-01 [facility] PSA, [employer] 10-01-2024 Prostate specific Ag [Mass/Vol] 2.10 ng/mL 0.00 - 4.00 ng/mL [facility] Comment on above: The [employer] ECLIA as say is used. Results obtained with different assay methods cannot be used interchangeably. [facility] Prostatic Spec. Ag 2.10 ng/mL Normal 0.00-4.00 [facility] Comment on above: Result Comment: The [employer] ECLIA assay is used. Results obtained with different assay methods cannot be used interchangeably. Performed By: #### L FELICE GLYHGB #### [facility] [address], [place] [phone] Manager Export: Joshua Eddy MD #### CP #### [facility] [address] [place], [place] [phone] Manager Export: Mathew Alanis MD Ambulatory Visit Summaryon 1 11-30-2023 Ambulatory Visit Summary Ambulatory Visit Summary GILBERTO NDIAYE :1955 Visit Date:09/30/2024 Ambulatory Visit Instructions Your Diagnosis Prostate cancer Rising PSA following treatment for malignant neoplasm of prostate Kidney stones Your Care Team Attending Physician - Myrtle MEJIA MD Primary Care Physician - AWAIS RUIZ MD This Is Your Medications List Contact prescribing physician if questions or concerns acetaminophen (Tylenol 325 mg Tab) ibuprofen (ibuprofen 200 mg Tab) [Image Removed: STOP]Stop taking these medications diazepam (Valium 10 mg Tab) Procedures Performed Transrectal biopsy of prostate using ultrasound (US) guidance (09/10/2024), Cystoscopy (03/01/2022), Arthroscopy of knee (09/04/2020), Insertion of radioactive implant into interstitial tissue of prostate with transperineal insertion of catheter (06/27/2013), Transrectal biopsy of prostate using ultrasound (US) guidance (12/18/2012), Appendectomy. Discharge Vitals Heart Rate (Peripheral) 65 Blood Pressure 152/89 Height 185 cm Height 73 in Weight 98 kg Weight 215.6 lb BMI 28.63 What to do next Scheduled Follow-Up Appointments Monday 8:45 AM EDT With: Myrtle MEJIA MD Where: [facility] [address] [place] [address]- You Need to Schedule the Following Appointments Follow Up with Myrtle MEJIA MD, URL When: Where: [facility] [address], [place] [address]- Medications What How Much When Instructions Unchanged acetaminophen (Tylenol 325 mg Tab) 2 Tablets By Mouth Every 4 hours as needed for as needed for pain Contact prescribing physician if questions or concerns Unchanged ibuprofen (ibuprofen 200 mg Tab) 3 By Mouth Every day as needed for as needed for pain Contact prescribing physician if questions or concerns What How Much When Comments Stop Taking diazepam (Valium 10 mg Tab) 1 Tablets By Mouth Once Take 1 hour prior to procedure. Have a dumpster driver. Medications and Immunizations Administered Given Lupron Depot 45 mg/6 months intramuscular injection, extended release, 45 mg, IntraMuscular. For: Allergies No Known Medication Allergies Problems Ongoing - Any problem that you are currently receiving treatment for. Asymptomatic microscopic hematuria Erectile dysfunction History of kidney stones History of prostate cancer Kidney stones Microscopic hematuria Nocturia Prostate cancer Rising PSA following treatment for malignant neoplasm of prostate Patient Survey You may receive a survey via text or e-mail asking about your office visit. Please share your experience with us by completing your survey. We appreciate your feedback and thank you for choosing us for your care. Education Materials Brachytherapy for Prostate Cancer, Care After The following information offers guidance on how to care for yourself after your procedure. Your health care provider may also give you more specific instructions. If you have problems or questions, contact your health care provider. What can I expect after the procedure? After the procedure, it is common to have: ??? Urinary symptoms. These may include: ? Trouble urinating. ? Blood in the urine or semen. ? Frequent feeling of an urgent need to urinate. ??? Constipation, nausea, or bloating and gas. ??? Bruising, swelling, and tenderness of the area beneath the scrotum (perineum). ??? Tiredness (fatigue). ??? Burning or pain in the rectum. ??? Problems getting or keeping an erection (erectile dysfunction). After the thin, flexible urinary tube (Naidu catheter)is removed, it is common to have: ??? Burning when you urinate. This may last for up to 2 weeks after the catheter is removed. ??? Trouble controlling when you urinate (incontinence). You may leak urine sometimes. Your ability to control when you urinate should improve as you heal. Follow these instructions at home: Eating and drinking ??? Follow instructions from your health care provider about eating or drinking restrictions. ??? Drink enough fluid to keep your urine pale yellow. Treatment area care Check your treatment area every day for signs of infection. Watch for: ??? Redness, swelling, or pain. ??? New drainage or blood. Some dried fluid or blood may be present. ??? Warmth. ??? Pus or a bad smell. Managing pain and swelling ??? If directed, put ice on the affected area. To do this: ? Put ice in a plastic bag. ? Place a towel between your skin and the bag. ? Leave the ice on for 20 minutes at a time, 2???3 times a day. ? Be sure to remove the ice if your skin turns bright red. If you cannot feel pain, heat, or cold, you have a greater risk of damage to the area. ??? Try not to sit directly on the perineum. A soft cushion can help with discomfort. (more content not included)... Normal [facility] Urology Office/Clinic Noteon 09-30-2024 Urology Office/Clinic Note Urology Office/Clinic Note Chief Complaint review path HPI Staff PO TRUS/bx 09/10/24, here to review path report. Last OV 06/03/24. Dx: rising PSA following treatment for malignant neoplasm of prostate, hx of prostate cancer (brachytherapy 2012), kidney stones. Original TRUS/bx 12/18/12. PSMA PET 07/02/24 [facility] showed uptake in right posterior peripheral zone of prostate, suspicious for recurrent tumor, and uptake in medial right hepatic lobe, indeterminate. Prostate MRI 08/21/24 [facility] showed right mid/base peripheral zone 0.7cm lesion which is suspicious for clinically significant prostate cancer. Mild bulging of capsule, equivocal for extraprostatic extension. No definite neurovascular bundle or seminal vesicle involvement. PI-RADS 4. Last saw Dr. Ledesma 08/28/24. Pt could not provide urine sample at this time. Dysuria: denies Incomplete bladder emptying: denies Hematuria: denies Frequency: every 3-4hrs, sometimes varies Urgency: denies Nocturia: 1-2x per night Stream: good stream Leaking: denies Post void dripping: rarely Wearing pads/ Depends: denies Urge incontinence: denies Stress incontinence: denies Incontinence without Sensory Awareness: denies Abdominal pain: denies Flank pain: denies History of Present Illness Tests reviewed: UA, MRI, PET, op note, path I have reviewed the previous health record information and history for this patient from Dr. Mejia. I have reviewed and verified the staff HPI to be accurate for this encounter. Review of Systems PHQ Score Initial Depression Screen Score: 0 SCORE ROS - Provider Constitutional: denies weight loss, denies hot flashes. Eyes: denies eye problems. Gastrointestinal: denies nausea, denies vomiting. Cardiovascular: denies chest pain or angina. Integumentary: no dryness Musculoskeletal: denies musculoskeletal symptoms. ENMT: denies otolaryngeal symptoms. Respiratory: no shortness of breath. Heme/Lymph: denies easy bleeding tendency, denies easy bruising tendency. Psychiatric: no confusion, no anxiety. Genitourinary: See HPI. Physical Exam Vitals & Measurements HR: 65(Peripheral) BP: 152/89 HT: 73 in HT: 185 cm WT: 98 kg WT: 215.6 lb BMI: 28.63 General Appearance: alert, no distress, well nourished, well developed male. Assessment/Plan Pt accompanied by an adult female today. 1. Prostate cancer (C61: Malignant neoplasm of prostate) PSA: 12/08/20 - 0.10 12/07/21 - 0.37 06/28/22 - 0.32 12/14/22 - 0.42 05/16/23 - 0.51 11/28/23 - 0.94 03/08/24 - 1.30 05/28/24 - 1.70 Original TRUS/bx 12/18/12. S/p Brachytherapy 06/2013. PSMA PET 07/02/24 [facility] - Uptake in right posterior peripheral zone of prostate, suspicious for recurrent tumor, and uptake in medial right hepatic lobe, indeterminate. Prostate MRI 08/21/24 [facility] - Right mid/base peripheral zone 0.7cm lesion which is suspicious for clinically significant prostate cancer. Mild bulging of capsule, equivocal for extraprostatic extension. No definite neurovascular bundle or seminal vesicle involvement. PI-RADS 4. Last saw Dr. Ledesma 08/28/24 - Discussed cont observation vs initiating ADT vs local ablative therapy (HIFU/cryo/possible repeat brachy) w/wo addition of ADT. Pt to further discuss with Dr. Mejia. S/p TRUS/bx 09/10/24 - G8 (4+4) x 5 cores (RB, RLB), GG4. G7 (4+3) x 9 cores (RM, RLM). Pt unable to provide urine sample today. Reviewed path with pt which shows high grade, high volume recurrence of prostate cancer. Pt does have a visit with Dr. Ledesma scheduled for 10/11 at [facility]. I do recommended starting ADT in conjunction with local ablative therapy, like repeat brachytherapy although not common, that the pt has already discussed with Dr. Ledesma. Discussed Lupron side effects (hot flashes, decreased libido, difficulty achieving/maintaining erection, bone thinning). At least two doses of Lupron recommended. SEs of repeat brachytherapy discussed. Pt can receive first Lupron today due to his insurance. Lupron 45 mgIM injection given today with no complications. Right glute. Pt denies side effects at this time. Follow up 6 mos with PSA and Lupron or sooner if needed. Pt understands and agrees with plan. 2. Rising PSA following treatment for malignant neoplasm of prostate (R97.21: Rising PSA following treatment for malignant neoplasm of prostate) See #1. 3. Kidney stones (N20.0: Calculus of kidney) KUB 02/22/22 - 4 mm calculus is present at the inferior pole of the right kidney. YOGESH 02/22/22 - bilateral hydronephrosis is seen. Right lower pole stone 0.8 x 0.6 x 0.6cm. On personal review: no hydro just parapelvic cysts. CTU 03/02/22 - 4 mm nonobstructing right nephrolith. No hydronephrosis or ureter. Due to nonobstructing stones and small size, no need to monitor these. [1] Follow-up With When Contact Information Myrtle MEJIA MD, [facility] [address], [place] [address]- Additional Instructions: 6 mos with PSA and Lupron Patient (more content not included)... Normal [facility] Comment on above: Result Comment: Elec tronically Signed By: Myrtle MEJIA MD\.br\Date and Time Signed: 09/30/24 14:14 EST\.br\Electronically Co-Signed By: Anita Syed\.br\Date and Time Co-Signed: 09/30/24 14:07 EST\.br\Electronically Co-Signed By: Anita Syed\.br\Date and Time Co-Signed: 09/30/24 14:13 EST Pathology Request for Lab Co [facility] 09-10-2024 Pathology Request for Lab Horace Normal [facility] Comment on above: Order Comment: PATHO LOGY UROLOGY SPECIMEN Result Comment: See report. Scanned copy available in EMR. PERFORMED BY: [address] [place] [address] PATHOLOGIST [employer] SAMANTHA HOSKINS M.D. Performed By: #### P ATH TO [facility] #### [address] CNOVon 08-28-2024 CNOV Office Visit (RADTSA ) GILBERTO NDIAYE ([id number]) 1955 M Date Time Provider Department 08/28/24 11:45 AM Olivia LEDESMA During your visit today, we recorded the following information about you: Temperature Pulse Respiration Blood pressure 98.1 degrees 53/minute 16/minute 147/80 Weight 98.6 kg Olivia Ledesma MD 08/30/2024 10:28 AM Signed Radiation Oncology - Follow Up Note PATIENT NAME: Gilberto Ndiaye PATIENT DIAGNOSIS: Prostate cancer, with prior brachytherapy, June 2013 INTERVAL HISTORY: The patient is in today for further follow-up regarding rising PSA. He underwent prostate MRI on 08/21/2024 which demonstrated: IMPRESSION: 1. Right mid/base peripheral zone 0.7 cm lesion which is suspicious for clinically significant prostate cancer. Mild bulging of the capsule, equivocal for extraprostatic extension. No definite neurovascular bundle or seminal vesicle involvement. PI-RADS 4. 2. Diffusely T2 hypointense appearance of the prostate gland, in keeping with post treatment change. 3. Prostate volume of approximately 21 cc. PSA HISTORY: PSA (ng/mL) Date Value 05/12/2014 0.80 PSA. (no units) Date Value 08/18/2016 0.19 01/12/2016 0.17 2014 0.59 He underwent further evaluation with PSMA PET on 07/07/2024, findings: IMPRESSION: HEAD/NECK: * No PSMA expressing neoplastic process. CHEST: * No PSMA expressing neoplastic process. ABDOMENS/PELVIS: * Focal PSMA uptake in the right posterior peripheral zone of the prostate, suspicious for recurrent tumor * Focal PSMA uptake in the medial right hepatic lobe, indeterminate. Consider correlation with liver MRI. MUSCULOSKELETAL: * No PSMA expressing neoplastic process. ALLERGIES: ALLERGIES No Known Allergies MEDICATIONS: No prescriptions on file. PERTINENT REVIEW OF SYSTEMS: Hematuria: none Dysuria: none Incontinence: none Urgency: none Catheter use: none Medications to aid urination: no - Total AUA Score: Bowel movement frequency: 1-3/day Bowel movement quality: normal Blood per rectum: none PHYSICAL EXAM: 08/28/24 1147 BP: 147/80 Pulse: (!) 53 Resp: 16 Temp: 36.7 ?C (98.1 ?F) TempSrc: Temporal SpO2: 99% Weight: 98.6 kg (217 lb 6 oz) General Appearance: Well appearing, alert, in no acute distress, well-hydrated, well nourished.. Skin: Skin color, texture, turgor normal, no suspicious rashes or lesions. Abdomen: Normal abdominal exam, Abdomen soft, non-tender. No masses, organomegaly. Genitalia: Normal. Rectal: normal exam. Lymph Nodes: No cervical lymphadenopathy, No supraclavicular lymphadenopathy, No axillary lymphadenopathy. and No inguinal lymphadenopathy.. ASSESSMENT/PLAN: Prostate cancer, Johan grade group 1 status post primary brachytherapy June 2013, with recent rising PSA and and abnormal PSMA PET within the prostate. MRI findings correlate with PET showing focal local abnormality right peripheral zone prostate. No extra prostatic findings on MRI. Options of management given rising PSA and radiologic findings suggesting local recurrence. Discussed continued observation versus initiating ADT versus local ablative therapy with or without addition of ADT. Local ablative options would include HIFU/cryo/possible repeat brachytherapy. Patient with need to see specialist to see if he would be a candidate for HIFU prior etc. I do feel of biopsy would be warranted as would help confirm radiographic findings as well as help in determining grade which may influence addition of ADT. Patient has further follow-up with Dr. Mejia. Will discuss further with him. Signed by: Olivia Ledesma MD CC Dr. Mejia Allergies As of Date: 08/28/2024 (No Known Allergies) Date Reviewed: 08/28/2024 Reviewed by: Nalini Aguilera MA - Fully Assessed Reason for Visit: Prostate Cancer [590] Cmt: Follow up Primary Visit Diagnosis:Malignant neoplasm of prostate (HCC) [C61] Problem List As Of Date 08/28/2024 Noted Resolved Personal history of malignant neoplasm of prost*06/19/2014 Follow-up and Disposition History for Encounter Date Provider Department Center 08/28/2024 [id number] LEDESMA VIANNEY Shay Encounter Status:Closed by Olivia LEDESMA on 08/30/24 Normal [facility] US Eye+Orbit - bilateralon 1 Diagnosis: Cataract both eyes (OU) Testing Indication: Performed for preop measurements in the determination of an intraocular lens (IOL) for both eyes (OU) Test Reliability: Good quality both eyes (OU) Interpretation: Good measurements for intraocular lens (IOL) calculation purposes. Calculation made for both eyes (OU). [employer] Radiology Study observation (narrative) [employer] MR Prostate WO and W contras t Breanna 08-22-2024 * * *Final Report* * * DATE OF EXAM: Aug 21 2024 4:04PM [facility] 0751 - MRI PROSTATE WO/W IVCON / PROCEDURE REASON: Personal history of malignant neoplasm of prostate * * * * Physician Interpretation * * * * EXAMINATION: MRI PELVIS WITHOUT AND WITH IV CONTRAST (MULTIPARAMETRIC PROSTATE MRI) CLINICAL HISTORY: 68 years old with prostate cancer status post brachytherapy. Rising PSA. Previous biopsy: Positive, Grade Group 1 (GS 3 + 3) 2019 PSA: 1.7 ng/mL (05/28/2024) ; Prior therapy: Brachytherapy TECHNIQUE: Multiparametric MRI of the prostate and pelvis performed on a 3T scanner utilizing phase pelvic coil. Sequences obtained: multiplanar T2-WI with small FOV; Axial DWI with multiple B-values and creation of ADC-maps; DCE T1-weighted images through the prostate obtained before, during and after the administration of intravenous gadolinium; prostate dimensions and volume were obtained using a semi-automated software (Seawind). 3D reconstructed images of the prostate were created by the interpreting radiologist (myself) on an independent workstation. CONTRAST: IV: 20 cc of Dotarem. COMPARISON: PET/CT performed 07/02/2024 RESULT: Prostate: Dimensions: 4.3 x 3.1 x 3.2 cm corresponding to a volume of approximately 21.35 cc. Post biopsy hemorrhage: Absent Peripheral zone: Diffuse mild T2/ADC map hypointensity (PI-RADS 2). Multiple brachytherapy seeds are noted. Lesion #1: Location: right mid/base posteromedial/posterol ateral peripheral zone Greatest dimension: 0.7-cm (series:4; image:17) T2-WI: Circumscribed, homogenous moderate hypointense focus/mass (score 4) DWI/ADC: Focal markedly hypointense on ADC and markedly hyperintense on high b-value DWI (score 4) DCE: Positive Extra-prostatic extension: Equivocal (capsule contact > or = 1.5 cm OR capsule irregularity or bulge) PI-RADS assessment category: 4 Transition zone: There is transition zone hypertrophy, without focal abnormalities suspicious for clinically significant disease (PI-RADS 1). No focal lesion present. Neurovascular bundle: Unremarkable. Seminal vesicles: Unremarkable. Adjacent Organ Involvement: Not applicable. Lymph nodes: No enlarged pelvic lymph nodes. Bladder: Unremarkable. Pelvic bones: No suspicious pelvic osseous lesions. Other Findings: None. [facility] Provider, [facility] - 08/22/2024 * * *Final Report* * * DATE OF EXAM: Aug 21 2024 4:04PM [facility] 0751 - MRI PROSTATE WO/W IVCON / PROCEDURE REASON: Personal history of malignant neoplasm of prostate * * * * Physician Interpretation * * * * EXAMINATION: MRI PELVIS WITHOUT AND WITH IV CONTRAST (MULTIPARAMETRIC PROSTATE MRI) CLINICAL HISTORY: 68 years old with prostate cancer status post brachytherapy. Rising PSA. Previous biopsy: Positive, Grade Group 1 (GS 3 + 3) 2018 PSA: 1.7 ng/mL (05/28/2024) ; Prior therapy: Brachytherapy TECHNIQUE: Multiparametric MRI of the prostate and pelvis performed on a 3T scanner utilizing phase pelvic coil. Sequences obtained: multiplanar T2-WI with small FOV; Axial DWI with multiple B-values and creation of ADC-maps; DCE T1-weighted images through the prostate obtained before, during and after the administration of intravenous gadolinium; prostate dimensions and volume were obtained using a semi-automated software (Seawind). 3D reconstructed images of the prostate were created by the interpreting radiologist (myself) on an independent workstation. CONTRAST: IV: 20 cc of Dotarem. COMPARISON: PET/CT performed 07/02/2024 RESULT: Prostate: Dimensions: 4.3 x 3.1 x 3.2 cm corresponding to a volume of approximately 21.35 cc. Post biopsy hemorrhage: Absent Peripheral zone: Diffuse mild T2/ADC map hypointensity (PI-RADS 2). Multiple brachytherapy seeds are noted. Lesion #1: Location: right mid/base posteromedial/posterol ateral peripheral zone Greatest dimension: 0.7-cm (series:4; image:17) T2-WI: Circumscribed, homogenous moderate hypointense focus/mass (score 4) DWI/ADC: Focal markedly hypointense on ADC and markedly hyperintense on high b-value DWI (score 4) DCE: Positive Extra-prostatic extension: Equivocal (capsule contact > or = 1.5 cm OR capsule irregularity or bulge) PI-RADS assessment category: 4 Transition zone: There is transition zone hypertrophy, without focal abnormalities suspicious for clinically significant disease (PI-RADS 1). No focal lesion present. Neurovascular bundle: Unremarkable. Seminal vesicles: Unremarkable. Adjacent Organ Involvement: Not applicable. Lymph nodes: No enlarged pelvic lymph nodes. Bladder: Unremarkable. Pelvic bones: No suspicious pelvic osseous lesions. Other Findings: None. IMPRESSION IMPRESSION: 1. Right mid/base peripheral zone 0.7 cm lesion which is suspicious for clinically significant prostate cancer. Mild bulging of the capsule, equivocal for extraprostatic extension. No definite neurovascular bundle or seminal vesicle involvement. PI-RADS 4. 2. Diffusely T2 hypointense appearance of the prostate gland, in keeping with post treatment change. 3. Prostate volume of approximately 21 cc. Number of targets created for MR/US fusion biopsy: Peripheral zone: 1 Transition zone: 0 If present, targets were numbered in order of level of suspicion for clinically significant prostate cancer (Jupiter score 3 + 4 or higher). PI-RADS v2.1 Assessment Categories: PI-RADS 1: Clinically significant cancer is highly unlikely PI-RADS 2: Clinically significant cancer is unlikely PI-RADS 3: Clinically significant cancer is equivocal PI-RADS 4: Clinically significant cancer is likely PI-RADS 5: Clinically significant cancer is highly likely (V.) Station Worker: [employer] Transcribe Date/Time: Aug 22 2024 5:34P Dictated by : MATTHEW SOLANO MD This examination was interpreted and the report reviewed and electronically signed by: MATTHEW SOLANO MD on Aug 22 2024 5:48PM EST [facility] MR Unspecified body region 3 D post processingon 08-22-2024 * * *Final Report* * * DATE OF EXAM: Aug 21 2024 4:04PM [facility] 0280 - MRI 3D POST PROCESSING / PROCEDURE REASON: Personal history of malignant neoplasm of prostate * * * * Physician Interpretation * * * * EXAMINATION: MRI PELVIS WITHOUT AND WITH IV CONTRAST (MULTIPARAMETRIC PROSTATE MRI) CLINICAL HISTORY: 68 years old with prostate cancer status post brachytherapy. Rising PSA. Previous biopsy: Positive, Grade Group 1 (GS 3 + 3) 2019 PSA: 1.7 ng/mL (05/28/2024) ; Prior therapy: Brachytherapy TECHNIQUE: Multiparametric MRI of the prostate and pelvis performed on a 3T scanner utilizing phase pelvic coil. Sequences obtained: multiplanar T2-WI with small FOV; Axial DWI with multiple B-values and creation of ADC-maps; DCE T1-weighted images through the prostate obtained before, during and after the administration of intravenous gadolinium; prostate dimensions and volume were obtained using a semi-automated software (Seawind). 3D reconstructed images of the prostate were created by the interpreting radiologist (myself) on an independent workstation. CONTRAST: IV: 20 cc of Dotarem. COMPARISON: PET/CT performed 07/02/2024 RESULT: Prostate: Dimensions: 4.3 x 3.1 x 3.2 cm corresponding to a volume of approximately 21.35 cc. Post biopsy hemorrhage: Absent Peripheral zone: Diffuse mild T2/ADC map hypointensity (PI-RADS 2). Multiple brachytherapy seeds are noted. Lesion #1: Location: right mid/base posteromedial/posterol ateral peripheral zone Greatest dimension: 0.7-cm (series:4; image:17) T2-WI: Circumscribed, homogenous moderate hypointense focus/mass (score 4) DWI/ADC: Focal markedly hypointense on ADC and markedly hyperintense on high b-value DWI (score 4) DCE: Positive Extra-prostatic extension: Equivocal (capsule contact > or = 1.5 cm OR capsule irregularity or bulge) PI-RADS assessment category: 4 Transition zone: There is transition zone hypertrophy, without focal abnormalities suspicious for clinically significant disease (PI-RADS 1). No focal lesion present. Neurovascular bundle: Unremarkable. Seminal vesicles: Unremarkable. Adjacent Organ Involvement: Not applicable. Lymph nodes: No enlarged pelvic lymph nodes. Bladder: Unremarkable. Pelvic bones: No suspicious pelvic osseous lesions. Other Findings: None. [facility] Provider, [facility] - 08/22/2024 * * *Final Report* * * DATE OF EXAM: Aug 21 2024 4:04PM [facility] 0280 - MRI 3D POST PROCESSING / PROCEDURE REASON: Personal history of malignant neoplasm of prostate * * * * Physician Interpretation * * * * EXAMINATION: MRI PELVIS WITHOUT AND WITH IV CONTRAST (MULTIPARAMETRIC PROSTATE MRI) CLINICAL HISTORY: 68 years old with prostate cancer status post brachytherapy. Rising PSA. Previous biopsy: Positive, Grade Group 1 (GS 3 + 3) 2019 PSA: 1.7 ng/mL (05/28/2024) ; Prior therapy: Brachytherapy TECHNIQUE: Multiparametric MRI of the prostate and pelvis performed on a 3T scanner utilizing phase pelvic coil. Sequences obtained: multiplanar T2-WI with small FOV; Axial DWI with multiple B-values and creation of ADC-maps; DCE T1-weighted images through the prostate obtained before, during and after the administration of intravenous gadolinium; prostate dimensions and volume were obtained using a semi-automated software (Seaw[employer]). 3D reconstructed images of the prostate were created by the interpreting radiologist (myself) on an independent workstation. CONTRAST: IV: 20 cc of Dotarem. COMPARISON: PET/CT performed 07/02/2024 RESULT: Prostate: Dimensions: 4.3 x 3.1 x 3.2 cm corresponding to a volume of approximately 21.35 cc. Post biopsy hemorrhage: Absent Peripheral zone: Diffuse mild T2/ADC map hypointensity (PI-RADS 2). Multiple brachytherapy seeds are noted. Lesion #1: Location: right mid/base posteromedial/posterol ateral peripheral zone Greatest dimension: 0.7-cm (series:4; image:17) T2-WI: Circumscribed, homogenous moderate hypointense focus/mass (score 4) DWI/ADC: Focal markedly hypointense on ADC and markedly hyperintense on high b-value DWI (score 4) DCE: Positive Extra-prostatic extension: Equivocal (capsule contact > or = 1.5 cm OR capsule irregularity or bulge) PI-RADS assessment category: 4 Transition zone: There is transition zone hypertrophy, without focal abnormalities suspicious for clinically significant disease (PI-RADS 1). No focal lesion present. Neurovascular bundle: Unremarkable. Seminal vesicles: Unremarkable. Adjacent Organ Involvement: Not applicable. Lymph nodes: No enlarged pelvic lymph nodes. Bladder: Unremarkable. Pelvic bones: No suspicious pelvic osseous lesions. Other Findings: None. IMPRESSION IMPRESSION: 1. Right mid/base peripheral zone 0.7 cm lesion which is suspicious for clinically significant prostate cancer. Mild bulging of the capsule, equivocal for extraprostatic extension. No definite neurovascular bundle or seminal vesicle involvement. PI-RADS 4. 2. Diffusely T2 hypointense appearance of the prostate gland, in keeping with post treatment change. 3. Prostate volume of approximately 21 cc. Number of targets created for MR/US fusion biopsy: Peripheral zone: 1 Transition zone: 0 If present, targets were numbered in order of level of suspicion for clinically significant prostate cancer (Jupiter score 3 + 4 or higher). PI-RADS v2.1 Assessment Categories: PI-RADS 1: Clinically significant cancer is highly unlikely PI-RADS 2: Clinically significant cancer is unlikely PI-RADS 3: Clinically significant cancer is equivocal PI-RADS 4: Clinically significant cancer is likely PI-RADS 5: Clinically significant cancer is highly likely (V.) Station Worker: [facility] Transcribe Date/Time: Aug 22 2024 5:34P Dictated by : MATTHEW SOLANO MD This examination was interpreted and the report reviewed and electronically signed by: MATTHEW SOLANO MD on Aug 22 2024 5:48PM [facility] No Panel Informationon 08-22 IMPRESSION: 1. Right mid/base peripheral zone 0.7 cm lesion which is suspicious for clinically significant prostate cancer. Mild bulging of the capsule, equivocal for extraprostatic extension. No definite neurovascular bundle or seminal vesicle involvement. PI-RADS 4. 2. Diffusely T2 hypointense appearance of the prostate gland, in keeping with post treatment change. 3. Prostate volume of approximately 21 cc. Number of targets created for MR/US fusion biopsy: Peripheral zone: 1 Transition zone: 0 If present, targets were numbered in order of level of suspicion for clinically significant prostate cancer (Jupiter score 3 + 4 or higher). PI-RADS v2.1 Assessment Categories: PI-RADS 1: Clinically significant cancer is highly unlikely PI-RADS 2: Clinically significant cancer is unlikely PI-RADS 3: Clinically significant cancer is equivocal PI-RADS 4: Clinically significant cancer is likely PI-RADS 5: Clinically significant cancer is highly likely (V.) Station Worker: [employer] Transcribe Date/Time: Aug 22 2024 5:34P Dictated by : MATTHEW SOLANO MD This examination was interpreted and the report reviewed and electronically signed by: MATTHEW SOLANO MD on Aug 22 2024 5:48PM [facility] No Panel InformationOrdered By: [facility] Provider on 08-22-2024 [facility] MR Prostate WO and W contras t Breanna 08-21-2024 Radiology Study observation (narrative) [facility] MR Unspecified body region 3 D post processingon 08-21-2024 Radiology Study observation (narrative) [facility] MRI ABDOMEN W WO CONTRASTon 07-19-2024 MRI ABDOMEN W WO CONTRAST EXAM: MRI ABDOMEN W WO CONTRAST HISTORY: Personal history of malignant neoplasm of prostate. Right hepatic uptake on PSMA PET. COMPARISON: Comparison by report to PSMA PET study performed at [facility], which describes focal PSMA uptake in the medial right hepatic lobe. TECHNIQUE: MRI of the abdomen was performed using axial and coronal SSFP images, axial in and [id number] gradient echo T1-weighted images, axial fast spin echo T2-weighted images, axial pre and postcontrast T1-weighted images with fat saturation and postprocessed subtraction images as well as coronal postcontrast T1-weighted images. The patient received 20 mL MultiHance IV. FINDINGS: No suspicious focal hepatic parenchymal lesion can be identified in the medial right hepatic lobe. There are several scattered hepatic cysts, the largest in the left hepatic lobe demonstrating a bilobed appearance with a central septation and measuring approximately 2.2 cm on series 5 image 11. Additional subcentimeter cysts are identified, including lesion in the medial liver dome measuring 5 mm on series 804 image 23 and a probable tiny cyst in the posterior right hepatic lobe measuring 5 mm on image 39. These demonstrate bright T2 signal (for example series 4 image 12). Diffusion-weighted images were not performed. Gallbladder is mildly distended and otherwise unremarkable. No biliary or pancreatic ductal dilatation is seen. There is possible pancreas divisum. The spleen is normal size. The adrenal glands are unremarkable. There are multiple parapelvic cysts in the bilateral kidneys. No suspicious renal lesions are seen. There is a suggestion of mild renal cortical atrophy and scarring and there are a few tiny subcentimeter renal cysts also noted. Small sliding hiatus hernia is present. There is no bulky abdominal adenopathy seen. IMPRESSION: 1. Scattered hepatic cysts. Some of these are too small to definitively characterize, but there are no definitely suspicious focal liver lesions. Recommend direct correlation with the outside PSMA PET study and consideration for followup imaging. 2. Tiny renal cortical cysts as well as prominent parapelvic renal cysts and mild renal cortical scarring. No suspicious renal lesions. 3. Small sliding hiatus hernia. 4. Possible pancreas divisum. Interpreted by: Angel Goodrich MD Signed by: Angel Goodrich MD 07/19/24 Final result Normal [facility] BUN & Creatinineon 4 Creatinine [Mass/Vol] 1.0 mg/dL 0.7 - 1.2 mg/dL [facility] Est, Glom Filt Rate 82 - [facility] Comment on above: These results are not intended for use in patients <18 years of age. eGFR results are calculated without a race factor using the 2020 CKD-EPI equation. Careful clinical correlation is recommended, particularly when comparing to results calculated using previous equations. The CKD-EPI equation is less accurate in patients with extremes of muscle mass, extra-renal metabolism of creatine, excessive creatine ingestion, or following therapy that affects renal tubular secretion. Urea nitrogen [Mass/Vol] 20 mg/dL 8 - 23 mg/dL [facility] BUN + Creatinineon 4 Creatinine [Mass/Vol] 1.0 mg/dL Normal 0.7-1.2 [facility] Comment on above: Performed By: #### B UNCRT #### [facility] [address] [place] [address] Manager Export: Mathew Alanis MD GFR/1.73 sq M.predicted among non-blacks MDRD (S/P/Bld) [Vol rate/Area] 82 mL/min/{1.73_m2} Normal >60 [facility] Comment on above: Result Comment: These results are not intended for use in patients <18 years of age. eGFR results are calculated without a race factor using the 2020 CKD-EPI equation. Careful clinical correlation is recommended, particularly when comparing to results calculated using previous equations. The CKD-EPI equation is less accurate in patients with extremes of muscle mass, extra-renal metabolism of creatine, excessive creatine ingestion, or following therapy that affects renal tubular secretion. Performed By: #### B UNCRT #### [facility] [address] [place] [address] Manager Export: Mathew Alanis MD Urea nitrogen [Mass/Vol] 20 mg/dL Normal 8-23 [facility] Comment on above: Performed By: #### B UNCRT #### [facility] [address] [place] [address] Manager Export: MD Mel Gunter 07-11-2024 [facility] Office Visit (VIDYAA ) GILBERTO NDIAYE ([id number]) 1955 M Date Time Provider Department 07/11/24 1:45 PM Olivia LEDESMA During your visit today, we recorded the following information about you: Temperature Pulse Respiration Blood pressure 97 degrees 66/minute 18/minute 150/89 Weight 99 kg Olivia Ledesma MD 07/16/2024 8:45 AM Signed Radiation Oncology - Follow Up Note PATIENT NAME: Gilberto Ndiaye PATIENT DIAGNOSIS: Prostate cancer, with prior brachytherapy, June 2019 INTERVAL HISTORY: The patient is in today for concern for rising PSA. PSA values noted below. PSA HISTORY: PSA (ng/mL) Date Value 05/12/2014 0.80 PSA. (no units) Date Value 08/18/2016 0.19 01/12/2016 0.17 2014 0.59 He underwent further evaluation with PSMA PET on 07/07/2024, findings: IMPRESSION: HEAD/NECK: * No PSMA expressing neoplastic process. CHEST: * No PSMA expressing neoplastic process. ABDOMENS/PELVIS: * Focal PSMA uptake in the right posterior peripheral zone of the prostate, suspicious for recurrent tumor * Focal PSMA uptake in the medial right hepatic lobe, indeterminate. Consider correlation with liver MRI. MUSCULOSKELETAL: * No PSMA expressing neoplastic process. ALLERGIES: ALLERGIES No Known Allergies MEDICATIONS: No prescriptions on file. PERTINENT REVIEW OF SYSTEMS: Hematuria: none Dysuria: none Incontinence: none Urgency: none Catheter use: none Medications to aid urination: no - Total AUA Score: Bowel movement frequency: 1-3/day Bowel movement quality: normal Blood per rectum: none PHYSICAL EXAM: 07/11/24 1351 BP: 150/89 Pulse: 66 Resp: 18 Temp: 36.1 ?C (97 ?F) SpO2: 97% Weight: 99 kg (218 lb 4.1 oz) General Appearance: Well appearing, alert, in no acute distress, well-hydrated, well nourished.. Skin: Skin color, texture, turgor normal, no suspicious rashes or lesions. Abdomen: Normal abdominal exam, Abdomen soft, non-tender. No masses, organomegaly. Genitalia: Normal. Rectal: normal exam. Lymph Nodes: No cervical lymphadenopathy, No supraclavicular lymphadenopathy, No axillary lymphadenopathy. and No inguinal lymphadenopathy.. ASSESSMENT/PLAN: Prostate cancer, Jupiter grade group 1 status post primary brachytherapy 2018, with recent rising PSA and and abnormal PSMA PET within the prostate. In review of both PSA history and PSMA PET patient appears to have a local only recurrence within the prostate. Overall patient's performance status and health status excellent. Given this I do feel further treatment considerations are warranted. I would recommend further staging with MRI prostate. Depending on findings biopsy could be considered. Depending on findings local treatment options could include cryotherapy, HIFU, reirradiation. Non ablative options would include hormonal therapy only versus continued observation. Several studies have shown safety and good efficacy of reirradiation, though generally after external beam this can be considered after primary brachytherapy with brachytherapy as the modality. Potential risks of retreatment given prior treatment were discussed with patient and his . Will plan to discuss further once MRI results available. Signed by: Olivia Ledesma MD CC Marquita Mtz, JEFF 07/16/2024 8:45 AM Signed CHIDI 4 Marquita Blackmon RN Referring Provider: NO PCP [[id number]] Allergies As of Date: 07/11/2024 (No Known Allergies) Date Reviewed: 07/11/2024 Reviewed by: Marquita Blackmon RN - Fully Assessed Reason for Visit: Prostate Cancer [590] Primary Visit Diagnosis:Personal history of malignant neoplasm of prostate [Z85.46] Order(s):MRI LIVER WO/W IVCON [[id number]] Order #: [id number] FUTURE [] iv contrast (will be provided with radiology test)MRI Liver Inject, intravenously, once for 1 dose. No IV access, insert saline lock prior to the beginning of sedation, infusion, injection of imaging exam. Discontinue saline lock post exam. If Pt. has a central line or IVAD, may access for administration according to line specific nursing protocol. Once exam is complete flush line and de-access according to line specific nursing protocol in the MR contrast administration guidelines link.Disp: 1 EachRfl: 0 PROSTATE-SPECIFIC ANTIGEN DIAGNOSTIC [SQPSA] Order #: [id number] FUTURE MRI PROSTATE WO/W IVCON [[id number]] Order #: [id number] FUTURE MRI 3D POST PROCESSING [[id number]] Order #: [id number] FUTURE [] iv contrast (will be provided with radiology test)MRI Prostate Inject, intravenously, once for 1 dose. No IV access, insert saline lock prior to the beginning of sedation, infusion, injection of imaging exam. Discontinue saline lock post exam. If Pt. has a central line or IVAD, may access for administration according to line specific nursing protoc (more content not included)... Normal [facility] PET/CT PROSTATE WBon 08-0 [place] PET/CT PROSTATE WB * * *Final Report* * * DATE OF EXAM: Jul 02 2024 12:20PM NRN [id number] - [place] PET/CT PROSTATE WB / PROCEDURE REASON: rising PSA; restaging * * * * Physician Interpretation * * * * RESULT: EXAMINATION: PSMA PET-CT CLINICAL HISTORY: Prostate cancer. Rising PSA. TECHNIQUE: Radiopharmaceutical was administered IV followed about 60 minutes later by PET imaging from proximal thighs to skull vertex. Free breathing, low dose CT of the same body region was acquired without IV contrast for attenuation correction and anatomic localization. * CT Dose-Length Product (DLP): 283 mGy*cm * CT Dose Reduction Employed: Yes * Radiopharmaceutical Activity: 9.6 mCi * Radiopharmaceutical: F-18 PSMA (Posluma) * All reported standardized uptake values represent maximum SUV (SUVmax) per body weight, unless otherwise specified. COMPARISON: No previous PSMA PET/CT available CORRELATION: No relevant imaging available RESULT: REFERENCES: SUV reference values: * Background liver activity: SUVmax 12.5 Relief Pharmacist (topogram) images: No additional findings. Notes and limitations: * Standardized uptake values indicate the highest activity concentration (SUVmax) at a given location but can be variable and are not absolute. * Physiologic/non-pathol ogic uptake is common in salivary glands, lacrimal glands, neural ganglia, liver, spleen, GI tract, and urinary tract. Certain organ systems can have more intense activity, which could confound or obscure some pathology. * Unenhanced imaging is limited for the evaluation of some pathology and the acquired CT was not designed to produce or replace diagnostic CT quality. * PET-CT is often not sensitive for solid pulmonary nodules less than 8 mm. HEAD AND NECK: Head: No abnormal uptake. Neck and Lymph Nodes: No abnormal uptake. Thyroid: No abnormal uptake. CHEST: Lungs and Airways: No abnormal uptake. Pleura and Pericardium: No abnormal uptake. Cardiovascular: No abnormal uptake. Mediastinum and Lymph Nodes: No abnormal uptake. ABDOMEN AND PELVIS: Hepatobiliary: focal tracer uptake in the medial right hepatic lobe, SUV 16.1 Spleen: No abnormal uptake. Pancreas: No abnormal uptake. Adrenals: No abnormal uptake. Urinary Tract: No abnormal uptake. Nonobstructive right renal calculus. Bilateral parapelvic renal cysts GI Tract: No abnormal uptake. Peritoneum: No abnormal uptake. Vasculature: No abnormal uptake. Lymph Nodes: * Abdomen (including common iliac): No abnormal uptake. * Pelvis (below common iliac): No abnormal uptake. Prostate and Seminal Vesicles: Focal tracer uptake at the right posterior peripheral zone of the prostate, SUV 5.1. Brachytherapy seeds in the prostate. Pelvis (other): No abnormal uptake. MUSCULOSKELETAL: Osseous: No abnormal uptake. Soft Tissues: No abnormal uptake. IMPRESSION: HEAD/NECK: * No PSMA expressing neoplastic process. CHEST: * No PSMA expressing neoplastic process. ABDOMENS/PELVIS: * Focal PSMA uptake in the right posterior peripheral zone of the prostate, suspicious for recurrent tumor * Focal PSMA uptake in the medial right hepatic lobe, indeterminate. Consider correlation with liver MRI. MUSCULOSKELETAL: * No PSMA expressing neoplastic process. Transcribe Date/Time: Jul 07 2024 12:58A Dictated by: DANIEL JOEL MD This examination was interpreted and the report reviewed and electronically signed by: DANIEL JOEL MD on Jul 07 2024 1:06AM EST Thank you for allowing us to participate in the care of your patient. Should there be any questions regarding this interpretation, please call [phone]. If you are unable to reach us at the number above, please feel free to contact [facility] at [phone]. [id number] Normal [facility] Ambulatory Visit Summaryon 0 06-03-2024 Ambulatory Visit Summary Ambulatory Visit Summary GILBERTO NDIAYE Nilam :1955 Visit Date:06/03/2024 Ambulatory Visit Instructions Your Diagnosis Rising PSA following treatment for malignant neoplasm of prostate History of prostate cancer Kidney stones Your Care Team Attending Physician - ROBERTO JOHN, Myrtle Lechuga Primary Care Physician - AWAIS RUIZ MD This Is Your Medications List Contact prescribing physician if questions or concerns acetaminophen (Tylenol 325 mg Tab) ibuprofen (ibuprofen 200 mg Tab) Procedures Performed Cystoscopy (03/01/2022), Arthroscopy of knee (09/04/2020), Insertion of radioactive implant into interstitial tissue of prostate with transperineal insertion of catheter (06/27/2013), Transrectal biopsy of prostate using ultrasound (US) guidance (12/18/2012), Appendectomy. Discharge Vitals Heart Rate (Peripheral) 59 Respiratory Rate 16 Blood Pressure 135/81 Height 185 cm Height 73 in Weight 98 kg Weight 215.6 lb BMI 28.63 What to do next You Need to Schedule the Following Appointments Follow Up with ROBERTO JOHN, ANUP Tamez When: Where: [facility] [address] [place] [address] [phone] Medications What How Much When Instructions Unchanged acetaminophen (Tylenol 325 mg Tab) 2 Tablets By Mouth Every 4 hours as needed for as needed for pain Contact prescribing physician if questions or concerns Unchanged ibuprofen (ibuprofen 200 mg Tab) 3 By Mouth Every day as needed for as needed for pain Contact prescribing physician if questions or concerns Allergies No Known Medication Allergies Problems Ongoing - Any problem that you are currently receiving treatment for. Asymptomatic microscopic hematuria Erectile dysfunction History of kidney stones History of prostate cancer Kidney stones Microscopic hematuria Nocturia Rising PSA following treatment for malignant neoplasm of prostate Patient Survey You may receive a survey via text or e-mail asking about your office visit. Please share your experience with us by completing your survey. We appreciate your feedback and thank you for choosing us for your care. Education Materials Cancer Screening for Men A cancer screening is a test or exam that checks for cancer. Your health care provider will recommend specific cancer screenings based on your age, medical history (including risk factors), and family history of cancer. Work with your health care provider to create a cancer screening schedule that protects your health. Who should have screening? All men should be considered for screening of certain cancers, including colorectal cancer, prostate cancer, lung cancer, and skin cancer. Your health care provider may recommend screenings for other types of cancer if: ? You had cancer before. ? You have a family member with cancer. ? You have abnormal genes that could increase the risk of cancer. ? You have risk factors for certain cancers, such as current or past use of tobacco products, or being overweight. When you should be screened for cancer depends on: ? Your age. ? Your medical history and your family's medical history. ? Certain lifestyle factors, such as smoking or other use of tobacco products. ? Environmental exposure, such as to asbestos. How is screening done? Colorectal cancer All adults should have screenings starting at age 45 and continuing until age 75. Your health care provider may recommend screening before age 45. You will have tests every 1?10 years, depending on your results and the type of screening test. People at increased risk should start screening at an earlier age. Talk with your health care provider about which screening test is right for you and how often you should be screened. Colorectal cancer screening looks for cancer or for growths called polyps that often form before cancer starts. Tests to look for cancer or polyps include: ? Colonoscopy or flexible sigmoidoscopy. For these procedures, a flexible tube with a small camera is inserted into the rectum. ? CT colonography. This test uses X-rays and a contrast dye to check the colon for polyps. If a polyp is found, you may need to have a colonoscopy so the polyp can be located and removed. Tests to look for cancer in the stool (feces) include: ? Guaiac-based fecal occult blood test (FOBT). This test can find blood in stool. It can be done at home with a kit. ? Fecal immunochemical test (FIT). This test can find blood in stool. For this test, you will need to collect stool samples at home. ? Stool DNA test. This test looks for blood in stool and any changes in DNA that can lead to colon cancer. For this test, you will need to collect a stool sample at home and send it to a lab. Prostate cancer Prostate cancer screening for men with average risk may start at age 50. Men with risk factors may need to be screened earlier, at ages 40?45. Talk with your h (more content not included)... Normal [facility] Urology Office/Clinic Noteon 06-03-2024 Urology Office/Clinic Note Urology Office/Clinic Note Chief Complaint 6m PSA HPI Staff 6 mos w/ PSA. Dx: hx of prostate cancer, kidney stones. Brachytherapy 06/2013. PSA 05/28/24 - 1.70 (03/08/24 - 1.30). Still getting up 1x/night. Not bothersome. Good stream. Denies straining. Denies flank pain since last encounter. No concerns at this time. History of Present Illness Tests reviewed: reviewed UA, PSA I have reviewed the previous health record information and history for this patient from Dr. Mejia. I have reviewed and verified the staff HPI to be accurate for this encounter. Review of Systems PHQ Score Initial Depression Screen Score: 0 SCORE ROS - Provider Constitutional: denies weight loss, denies hot flashes. Eyes: denies eye problems. Gastrointestinal: denies nausea, denies vomiting. Cardiovascular: denies chest pain or angina. Integumentary: no dryness Musculoskeletal: denies musculoskeletal symptoms. ENMT: denies otolaryngeal symptoms. Respiratory: no shortness of breath. Heme/Lymph: denies easy bleeding tendency, denies easy bruising tendency. Psychiatric: no confusion, no anxiety. Genitourinary: See HPI. Physical Exam Vitals & Measurements HR: 59(Peripheral) RR: 16 BP: 135/81 HT: 73 in HT: 185 cm WT: 98 kg WT: 215.6 lb BMI: 28.63 General Appearance: alert, no distress, well nourished, well developed male. Assessment/Plan 1. Rising PSA following treatment for malignant neoplasm of prostate (R97.21: Rising PSA following treatment for malignant neoplasm of prostate) PSA: 12/08/20 - 0.1 12/07/21 - 0.37 06/28/22 - 0.32 12/14/22 - 0.42 05/16/23 - 0.51 11/28/23 - 0.94 03/08/24 - 1.30 05/28/24 - 1.70 S/p Brachytherapy 06/2013. No bother with urination. UA today negative for blood and infection. Previously discussed starting oral anti-androgen medication given rise in PSA but pt preferred to continue to monitor PSA at this time. Now PSA has continued to increase steadily. Discussed prior implanted seeds are not likely controlling the cancer any more. Recommended pt to get a PSMA PET scan to ensure there is not metastatic disease. Discussed possible need for other treatment options including androgen suppression therapy. All questions/concerns were discussed. Pt acknowledges understanding. -Schedule PSMA PET scan. Will call pt with results. -Consider prostate MRI 2. History of prostate cancer (Z85.46: Personal history of malignant neoplasm of prostate) See #1. 3. Kidney stones (N20.0: Calculus of kidney) KUB 02/22/22 - 4 mm calculus is present at the inferior pole of the right kidney. YOGESH 02/22/22 - bilateral hydronephrosis is seen. Right lower pole stone 0.8 x 0.6 x 0.6cm. On personal review: no hydro just parapelvic cysts. CTU 03/02/22 - 4 mm nonobstructing right nephrolith. No hydronephrosis or ureter. [1] Due to nonobstructing stones and small size, no need to monitor these. [2] Follow-up With When Contact Information ROBERTO JOHN, Myrtle Lechuga, [facility] [address] [place] [address] [phone] Additional Instructions: sched PSMA PET scan Patient Education Cancer Screening for Men I, Celeste Armenta, personally scribed for Dr. Mejia on 06/03/2024 10:11:20. . Documentation recorded by the scribe, Celeste Armenta, accurately reflects the services(s) I performed and decisions made by me. Authenticated by Dr. Mejia on 06/03/2024 10:16:30. Problem List/Past Medical History Ongoing Asymptomatic microscopic hematuria Erectile dysfunction History of kidney stones History of prostate cancer Kidney stones Microscopic hematuria Nocturia Rising PSA following treatment for malignant neoplasm of prostate Historical No qualifying data Procedure/Surgical History Cystoscopy (03/01/2022), Arthroscopy of knee (09/04/2020), Insertion of radioactive implant into interstitial tissue of prostate with transperineal insertion of catheter (06/27/2013), Transrectal biopsy of prostate using ultrasound (US) guidance (12/18/2012), Appendectomy. Medications ibuprofen 200 mg Tab, 3, Oral, Daily, PRN Tylenol 325 mg Tab, 650 mg= 2 tab(s), Oral, q4hr, PRN Allergies No Known Medication Allergies Social History Alcohol - Denies Alcohol Use, 11/15/2019 Substance Abuse - Denies Substance Abuse, 11/15/2019 Tobacco - Denies Tobacco Use, 11/15/2019 Never (less than 100 in lifetime) Tobacco Use:. Never Smokeless Tobacco Use:. Household tobacco concerns: No. Yes, 06/03/2024 Family History Diabetes mellitus type 2: Mother. Heart disease: Father. Primary malignant neoplasm of lung: Father. Prostate cancer: Brother. Immunizations Vaccine Date Status Comments SARS-CoV-2 (COVID-19) Ad26 vaccine - Not Given Postpone due to refusal influenza virus vaccine, inactivated 10/12/2020 Recorded influenza, whole 09/25/2019 Recorded Lab Results Ambulatory Point of Care Results Bilirubin Urine Dipstick: Negative (06/03/ (more content not included)... Normal [facility] Comment on above: Result Comment: Elec tronically Signed By: Myrtle MEJIA MD\.br\Date and Time Signed: 06/03/24 10:16 EDT\.br\Electronically Co-Signed By: Celeste Armenta\.br\Date and Time Co-Signed: 06/03/24 10:13 EDT PSA Screeningon 05-28-2024 Prostate specific Ag [Mass/Vol] 1.70 ng/mL 0.00 - 4.00 ng/mL [facility] Comment on above: The [employer] ECLIA as say is used. Results obtained with different assay methods cannot be used interchangeably. [facility] PSA, Screeningon 05-28-2024 Prostatic Spec. Ag 1.70 ng/mL Normal 0.00-4.00 [facility] Comment on above: Result Comment: The [employer] ECLIA assay is used. Results obtained with different assay methods cannot be used interchangeably. Performed By: #### P SAS #### [facility] [address] [place] [address] [id number] Manager Export: Joshua Eddy MD Lab Reportson 03-19-2024 Lab Reports [id number] Normal [facility] PSA, Diagnosticon 03-08-2024 Prostatic Spec. Ag 1.30 ng/mL Normal 0.00-4.00 [facility] Comment on above: Result Comment: The [employer] ECLIA assay is used. Results obtained with different assay methods cannot be used interchangeably. Performed By: #### P SAD #### [facility] [address] [place] [id number] Manager Export: Joshua Eddy MD Ambulatory Visit Summaryon 0 12-04-2023 Ambulatory Visit Summary SENTHIL GILBERTO L :1955 Visit Date:12/04/2023 Ambulatory Visit Instructions Your Diagnosis History of prostate cancer Kidney stones Tests Performed Urnls Dip Stick Auto w/o Microscopy POC 11232 Your Care Team Attending Physician - Myrtle MEJIA MD Primary Care Physician - AWAIS RUIZ MD This Is Your Medications List Contact prescribing physician if questions or concerns acetaminophen (Tylenol 325 mg Tab) ibuprofen (ibuprofen 200 mg Tab) Procedures Performed Cystoscopy (03/01/2022), Arthroscopy of knee (09/04/2020), Insertion of radioactive implant into interstitial tissue of prostate with transperineal insertion of catheter (06/27/2013), Transrectal biopsy of prostate using ultrasound (US) guidance (12/18/2012), Appendectomy. Discharge Vitals Heart Rate (Peripheral) 67 Respiratory Rate 16 Blood Pressure 139/88 Height 185 cm Height 73 in Weight 98.5 kg Weight 216.7 lb BMI 28.78 What to do next You Need to Schedule the Following Appointments Follow Up with ROBERTO JOHN, ANUP Tamez When: Comments: 6 mos w/ PSA Where: [facility] [address], [place] [address]- [phone] Medications What How Much When Instructions Unchanged acetaminophen (Tylenol 325 mg Tab) 2 Tablets By Mouth Every 4 hours as needed for as needed for pain Contact prescribing physician if questions or concerns Unchanged ibuprofen (ibuprofen 200 mg Tab) 3 By Mouth Every day as needed for as needed for pain Contact prescribing physician if questions or concerns Test Results Urnls Dip Stick Auto w/o Microscopy POC 61361 (12/04/2023) Bilirubin Urine Dipstick - Negative Blood Urine Dipstick - Trace-intact Glucose Urine Dipstick - Negative Ketones Urine Dipstick - Negative Leukocytes Urine Dipstick - Negative Nitrite Urine Dipstick - Negative Protein Urine Dipstick - Negative Specific Rosamond Urine Dipstick - 1.025 Urine Appearance Urine Dipstick - Clear Urine Color Urine Dipstick - Yellow Urobilinogen Urine Dipstick - Normal 0.2-1 EU/dl pH Urine Dipstick - 5.5 Allergies No Known Medication Allergies Problems Ongoing - Any problem that you are currently receiving treatment for. Asymptomatic microscopic hematuria Erectile dysfunction History of kidney stones History of prostate cancer Kidney stones Microscopic hematuria Nocturia Patient Survey You may receive a survey via text or e-mail asking about your office visit. Please share your experience with us by completing your survey. We appreciate your feedback and thank you for choosing us for your care. Education Materials Prostate Cancer Screening Prostate cancer screening is testing that is done to check for the presence of prostate cancer in men. The prostate gland is a walnut-sized gland that is located below the bladder and in front of the rectum in males. The function of the prostate is to add fluid to semen during ejaculation. Prostate cancer is one of the most common types of cancer in men. Who should have prostate cancer screening? Screening recommendations vary based on age and other risk factors, as well as between the professional organizations who make the recommendations. In general, screening is recommended if: ? You are age 50 to 70 and have an average risk for prostate cancer. You should talk with your health care provider about your need for screening and how often screening should be done. Because most prostate cancers are slow growing and will not cause , screening in this age group is generally reserved for men who have a 10- to 15-year life expectancy. ? You are younger than age 50, and you have these risk factors: ? Having a father, brother, or uncle who has been diagnosed with prostate cancer. The risk is higher if your family member's cancer occurred at an early age or if you have multiple family members with prostate cancer at an early age. ? Being a male who is Black or is of [place] or sub-Saharan descent. In general, screening is not recommended if: ? You are younger than age 40. ? You are between the ages of 40 and 49 and you have no risk factors. ? You are 70 years of age or older. At this age, the risks that screening can cause are greater than the benefits that it may provide. If you are at high risk for prostate cancer, your health care provider may recommend that you have screenings more often or that you start screening at a younger age. How is screening for prostate cancer done? The recommended prostate cancer screening test is a blood test called the prostate-specific antigen (PSA) test. PSA is a protein that is made in the prostate. As you age, your prostate naturally produces more PSA. Abnormally high PSA levels may be caused by: ? Prostate cancer. ? An enlarged prostate that is not caused by cancer (benign prostatic hyperplasia, or BPH). This condition is very c (more content not included)... Normal [facility] Patient Educationon 12-04-19 24 Patient Education Oncology Prostate Cancer Screening Prostate cancer screening is testing that is done to check for the presence of prostate cancer in men. The prostate gland is a walnut-sized gland that is located below the bladder and in front of the rectum in males. The function of the prostate is to add fluid to semen during ejaculation. Prostate cancer is one of the most common types of cancer in men. Who should have prostate cancer screening? Screening recommendations vary based on age and other risk factors, as well as between the professional organizations who make the recommendations. In general, screening is recommended if: ? You are age 50 to 70 and have an average risk for prostate cancer. You should talk with your health care provider about your need for screening and how often screening should be done. Because most prostate cancers are slow growing and will not cause , screening in this age group is generally reserved for men who have a 10- to 15-year life expectancy. ? You are younger than age 50, and you have these risk factors: ? Having a father, brother, or uncle who has been diagnosed with prostate cancer. The risk is higher if your family member's cancer occurred at an early age or if you have multiple family members with prostate cancer at an early age. ? Being a male who is Black or is of [place] or sub-Saharan descent. In general, screening is not recommended if: ? You are younger than age 40. ? You are between the ages of 40 and 49 and you have no risk factors. ? You are 70 years of age or older. At this age, the risks that screening can cause are greater than the benefits that it may provide. If you are at high risk for prostate cancer, your health care provider may recommend that you have screenings more often or that you start screening at a younger age. How is screening for prostate cancer done? The recommended prostate cancer screening test is a blood test called the prostate-specific antigen (PSA) test. PSA is a protein that is made in the prostate. As you age, your prostate naturally produces more PSA. Abnormally high PSA levels may be caused by: ? Prostate cancer. ? An enlarged prostate that is not caused by cancer (benign prostatic hyperplasia, or BPH). This condition is very common in older men. ? A prostate gland infection (prostatitis) or urinary tract infection. ? Certain medicines such as male hormones (like testosterone) or other medicines that raise testosterone levels. A rectal exam may be done as part of prostate cancer screening to help provide information about the size of your prostate gland. When a rectal exam is performed, it should be done after the PSA level is drawn to avoid any effect on the results. Depending on the PSA results, you may need more tests, such as: ? A physical exam to check the size of your prostate gland, if not done as part of screening. ? Blood and imaging tests. ? A procedure to remove tissue samples from your prostate gland for testing (biopsy). This is the only way to know for certain if you have prostate cancer. What are the benefits of prostate cancer screening? ? Screening can help to identify cancer at an early stage, before symptoms start and when the cancer can be treated more easily. ? There is a small chance that screening may lower your risk of dying from prostate cancer. The chance is small because prostate cancer is a slow-growing cancer, and most men with prostate cancer from a different cause. What are the risks of prostate cancer screening? The main risk of prostate cancer screening is diagnosing and treating prostate cancer that would never have caused any symptoms or problems. This is called overdiagnosisand overtreatment. PSA screening cannot tell you if your PSA is high due to cancer or a different cause. A prostate biopsy is the only procedure to diagnose prostate cancer. Even the results of a biopsy may not tell you if your cancer needs to be treated. Slow-growing prostate cancer may not need any treatment other than monitoring, so diagnosing and treating it may cause unnecessary stress or other side effects. Questions to ask your health care provider ? When should I start prostate cancer screening? ? What is my risk for prostate cancer? ? How often do I need screening? ? What type of screening tests do I need? ? How do I get my test results? ? What do my results mean? ? Do I need treatment? Where to find more information ? The [place] [employer]: www.cancer.org ? [employer] [employer]: www.auanet.org Contact a health care provider if: ? You have difficulty urinating. ? You have pain when you urinate or ejaculate. ? You have blood in your urine or semen. ? You have pain in your back or in the area of your prostate. Summary ? Prostate cancer is a common type of cancer in men. The prostate gland is located below the bladder and in front of the rectum. This gland adds flu (more content not included)... Normal [facility] Urology Office/Clinic Noteon 01-08-2024 Urology Office/Clinic Note Chief Complaint 1yr PSA HPI Staff 1yr PSA & KUB DX: Hx of Prostate Cancer, Microscopic Hematuria & Kidney Stones S/p Brachytherapy 06/2013. *No Urology Meds Denies visible blood in urine. Denies flank pain. Denies all urinary symptoms. No concerns at this time. PSA 05/16/23- 0.51 11/28/23- 0.94 History of Present Illness Tests reviewed: reviewed UA, PSAs I have reviewed the previous health record information and history for this patient from Dr. Mejia. I have reviewed and verified the staff HPI to be accurate for this encounter. Review of Systems PHQ Score Initial Depression Screen Score: 0 SCORE ROS - Provider Constitutional: denies weight loss, denies hot flashes. Eyes: denies eye problems. Gastrointestinal: denies nausea, denies vomiting. Cardiovascular: denies chest pain or angina. Integumentary: no dryness Musculoskeletal: denies musculoskeletal symptoms. ENMT: denies otolaryngeal symptoms. Respiratory: no shortness of breath. Heme/Lymph: denies easy bleeding tendency, denies easy bruising tendency. Psychiatric: no confusion, no anxiety. Genitourinary: See HPI. Physical Exam Vitals & Measurements HR: 67(Peripheral) RR: 16 BP: 139/88 HT: 73 in HT: 185 cm WT: 98.5 kg WT: 216.7 lb BMI: 28.78 General Appearance: alert, no distress, well nourished, well developed male. Genitourinary: normal scrotum, normal testes, normal urethra, normal epididymis, normal vas deferens/spermatic cord. Flank Pain: none. Bladder: nonpalpable. Assessment/Plan 1. History of prostate cancer (Z85.46: Personal history of malignant neoplasm of prostate) PSA: 12/08/20 - 0.1 12/07/21 - 0.37 06/28/22 - 0.32 12/14/22 - 0.42 05/16/23 - 0.51 11/28/23 - 0.94 S/p Brachytherapy 06/2013. Voids 1x/night. Feels he empties completely. UA today negative for blood and infection. Denies any bothersome urinary sxs. Discussed recent PSA levels which have continued to increase steadily. Previously discussed starting oral anti-androgen medication if PSA continued to rise and re-discussed this today. Also discussed risks/benefits/SEs. Pt states he would like to continue to monitor PSA at this time. -PSA in 3 mos and 6 mos -F/u in 6 mos 2. Kidney stones (N20.0: Calculus of kidney) KUB 02/22/22 - 4 mm calculus is present at the inferior pole of the right kidney. YOGESH 02/22/22 - bilateral hydronephrosis is seen. Right lower pole stone 0.8 x 0.6 x 0.6cm. On personal review: no hydro just parapelvic cysts. CTU 03/02/22 - 4 mm nonobstructing right nephrolith. No hydronephrosis or ureter. Denies any stone episodes since last encounter. Due to nonobstructing stones and small size, no need to monitor these. Follow-up With When Contact Information ROBERTO JOHN, Myrtle Lechuga, URL [facility] [address], [place] [address]- [phone] Additional Instructions: 6 mos w/ PSA Patient Education Prostate Cancer Screening I, Celeste Armenta, personally scribed for Dr. Mejia on 12/04/2023 09:40:39. . Documentation recorded by the scribe, Celeste Armenta, accurately reflects the services(s) I performed and decisions made by me. Authenticated by Dr. Mejia on 12/04/2023 09:43:34. Problem List/Past Medical History Ongoing Asymptomatic microscopic hematuria Erectile dysfunction History of kidney stones History of prostate cancer Kidney stones Microscopic hematuria Nocturia Historical No qualifying data Procedure/Surgical History Cystoscopy (03/01/2022), Arthroscopy of knee (09/04/2020), Insertion of radioactive implant into interstitial tissue of prostate with transperineal insertion of catheter (06/27/2013), Transrectal biopsy of prostate using ultrasound (US) guidance (12/18/2012), Appendectomy. Medications ibuprofen 200 mg Tab, 3, Oral, Daily, PRN Tylenol 325 mg Tab, 650 mg= 2 tab(s), Oral, q4hr, PRN Allergies No Known Medication Allergies Social History Alcohol - Denies Alcohol Use, 11/15/2019 Substance Abuse - Denies Substance Abuse, 11/15/2019 Tobacco - Denies Tobacco Use, 11/15/2019 Never (less than 100 in lifetime) Tobacco Use:. Never Smokeless Tobacco Use:. Household tobacco concerns: No. Yes, 12/04/2023 Family History Diabetes mellitus type 2: Mother. Heart disease: Father. Primary malignant neoplasm of lung: Father. Immunizations Vaccine Date Status Comments SARS-CoV-2 (COVID-19) Ad26 vaccine - Not Given Postpone due to refusal influenza virus vaccine, inactivated 10/12/2020 Recorded influenza, whole 09/25/2019 Recorded Lab Results Ambulatory Point of Care Results Bilirubin Urine Dipstick: Negative (12/04/23 09:00:00) Blood Urine Dipstick: Trace-intact (12/04/23 09:00:00) Glucose Urine Dipstick: Negative (12/04/23 09:00:00) Ketones Urine Dipstick: Negative (12/04/23 09:00:00) Leukocytes Urine Dipstick: Negative (12/04/23 09:00:00) Nitrite Urine Dipstick: Negative (12/04/23 09:00:00) Protein Urine Dips (more content not included)... Normal [facility] Comment on above: Result Comment: Elec tronically Signed By: Myrtle MEJIA MD\.br\Date and Time Signed: 12/04/23 09:43 EST\.br\Electronically Co-Signed By: Celeste Armenta\.br\Date and Time Co-Signed: 12/04/23 09:40 EST Lab Reportson 11-29-2023 Lab Reports [id number] Normal [facility] PSA, [employer] 05-16-2023 Prostate specific Ag [Mass/Vol] 0.51 ng/mL NINF - 4.1 ng/mL [facility] Comment on above: The [employer] ECLIA as say is used. Results obtained with different assay methods cannot be used interchangeably. [facility] PSA, [employer] 12-14-2022 [facility] Comprehensive Metabolic Pane alexis 09-27-2022 Albumin [Mass/Vol] 4.2 g/dL 3.5 - 5.2 g/dL [facility] ALP (Bld) [Catalytic activity/Vol] 81 U/L 40 - 129 U/L [facility] ALT [Catalytic activity/Vol] 12 U/L 5 - 41 U/L [facility] Anion gap [Moles/Vol] 9 mmol/L 9 - 17 mmol/L [facility] AST [Catalytic activity/Vol] 17 U/L NINF - 40 U/L [facility] Bilirubin [Mass/Vol] 0.5 mg/dL 0.30 - 1.20 mg/dL [facility] Calcium [Mass/Vol] 9.1 mg/dL 8.6 - 10. 4 mg/dL [facility] Chloride [Moles/Vol] 102 mmol/L 98 - 10 7 mmol/L [facility] CO2 [Moles/Vol] 28 mmol/L 20 - 31 mmol/L [facility] Creatinine [Mass/Vol] 1.03 mg/dL 0.70 - 1.20 mg/dL [facility] GFR/1.73 sq M.predicted MDRD (S/P/Bld) [Vol rate/Area] - PINF [facility] Comment on above: Effective Aug 29, 2022 These results are not intended for use in patients <18 years of age. eGFR results are calculated without a race factor using the 2020 CKD-EPI equation. Careful clinical correlation is recommended, particularly when comparing to results calculated using previous equations. The CKD-EPI equation is less accurate in patients with extremes of muscle mass, extra-renal metabolism of creatine, excessive creatine ingestion, or following therapy that affects renal tubular secretion. Glucose [Mass/Vol] 93 mg/dL 70 - 99 mg/dL [facility] Interpretation and review of laboratory results Abnormal [facility] Potassium [Moles/Vol] 4.3 mmol/L 3.7 - 5.3 mmol/L [facility] Protein [Mass/Vol] 6.8 g/dL 6.4 - 8.3 g/dL [facility] Sodium [Moles/Vol] 139 mmol/L 135 - 144 mmol/L [facility] Urea nitrogen (BldV) [Mass/Vol] 22 mg/dL 8 - 23 mg/dL [facility] Urea nitrogen/Creatinine (Bld) [Mass ratio] 21 High 9 - 20 [facility] Hemoglobin A1Con 09-27-2022 Glucose [Mass/Vol] 105 mg/dL [facility] Comment on above: The ADA and AACC rec ommend providing the estimated average glucose result to permit better patient understanding of their HBA1c result. HbA1c (Bld) [Mass fraction] 5.3 % 4.0 - 6.0 % [facility] Lipid Panelon 09-27-2022 Cholesterol [Mass/Vol] 183 mg/dL NINF - 200 mg/dL [facility] Comment on above: Cholesterol Guidelines: <200 Desirable 200-240 Borderline >240 Undesirable Cholesterol in HDL [Mass/Vol] 59 mg/dL 40 - PINF mg/dL [facility] Comment on above: HDL Guidelines: <40 Undesirable 40-59 Borderline >59 Desirable Cholesterol in LDL [Mass/Vol] 107 mg/dL 0 - 130 mg/dL [facility] Comment on above: LDL Guidelines: <100 Desirable 100-129 Near to/above Desirable 130-159 Borderline >159 Undesirable Direct (measured) LDL and calculated LDL are not interchangeable tests. Cholesterol.total/Cho lesterol in HDL [Mass ratio] 3.1 {ratio} NINF - 5 [facility] Triglyceride [Mass/Vol] 83 mg/dL NINF - 150 mg/dL [facility] Comment on above: Triglyceride Guidelines: <150 Desirable 150-199 Borderline 200-499 High >499 Very high Based on AHA Guidelines for fasting triglyceride, August 2012. [facility] Patient Fasting?on 2 Patient Fasting? YES [facility] US RENAL COMPLETEon 02-24-20 22 1. Bilateral moderate hydronephrosis. Complete obstructive uropathy however is not suspected. Ureteral jets are intact bilaterally. 2. Lower pole right nephrolithiasis. 3. 34 mL postvoid urinary bladder residual. [facility] Kendrick Hernandez - 02/23/2022 PROCEDURE: US RENAL COMPLETE, 02/22/2022, 10:09 AM EDT CLINICAL INDICATIONS: Microscopic hematuria COMPARISON: None TECHNIQUE: Renal sonogram, grayscale and color assessment FINDINGS: Right kidney: 12.2 x 6.7 x 5.9 cm Left kidney: 12.8 x 6.6 x 6.4 cm Prevoid urinary bladder volume: 312 mL Postvoid urinary bladder volume: 34 mL Renal parenchyma is normal in echogenicity and cortical thickness. Bilateral hydronephrosis is seen. Right extra renal pelvis 2.2 cm, left 2.4 cm. Nephrolithiasis; 0.8 x 0.6 x 0.6 cm lower pole right Urinary bladder abnormality is not detected. Ureteral jets intact bilaterally. IMPRESSION: 1. Bilateral moderate hydronephrosis. Complete obstructive uropathy however is not suspected. Ureteral jets are intact bilaterally. 2. Lower pole right nephrolithiasis. 3. 34 mL postvoid urinary bladder residual. [employer] Work Phone: US RENAL COMPLETEOrdered By: Kendrick Kurtz on 02-23-2022 [employer] XR ABDOMEN (KUB) (SINGLE AP VIEW)on 02-23-2022 4 mm calculus is present at the inferior pole of the right kidney. [facility] RIS CONSOLIDATED EXAM: XR ABDOMEN (KU B) (SINGLE AP VIEW) HISTORY: N20.0 hematuria. COMPARISON: None. TECHNIQUE: Supine frontal views of the abdomen and pelvis were obtained. FINDINGS: There is a 4 mm calcification projecting over the inferior pole of the right kidney. No additional calcification is seen projecting over the urinary tract. Phleboliths are present in the pelvis. Brachytherapy beads are present in the prostate bed. Visualized bowel gas pattern appears unremarkable. [facility] CONSOLIDATED Rex Luevano MD - 02/23/2022 EXAM: XR ABDOMEN (KUB) (SINGLE AP VIEW) HISTORY: N20.0 hematuria. COMPARISON: None. TECHNIQUE: Supine frontal views of the abdomen and pelvis were obtained. FINDINGS: There is a 4 mm calcification projecting over the inferior pole of the right kidney. No additional calcification is seen projecting over the urinary tract. Phleboliths are present in the pelvis. Brachytherapy beads are present in the prostate bed. Visualized bowel gas pattern appears unremarkable. IMPRESSION: 4 mm calculus is present at the inferior pole of the right kidney. [employer] Work Phone: XR ABDOMEN (KUB) (SINGLE AP VIEW)Ordered By: Rex Luevano on 02-23-2022 [employer] Phone: RENAL COMPLETEon 02-23-20 Radiology Study observation (narrative) [employer] Phone: XR ABDOMEN (KUB) (SINGLE AP VIEW)on 02-22-2022 Radiology Study observation (narrative) [employer] Phone: Basic Metabolic PanelOrdered By: Boubacar Vuong on 09-22-2021 Anion gap [Moles/Vol] 10 mmol/L 9 - 17 mmol/L [employer] Phone: Calcium [Mass/Vol] 8.9 mg/dL 8.6 - 10. 4 mg/dL [employer] Phone: Chloride [Moles/Vol] 102 mmol/L 98 - 10 7 mmol/L [employer] Phone: CO2 [Moles/Vol] 25 mmol/L 20 - 31 mmol/L [employer] Phone: Creatinine [Mass/Vol] 0.85 mg/dL 0.70 - 1.20 mg/dL [employer] Phone: GFR >60 >60 mL/min [employer] Phone: GFR Non- >60 >60 mL/min [employer] Phone: GFR/1.73 sq M.predicted MDRD (S/P/Bld) [Vol rate/Area] [employer] Phone: Comment on above: Average GFR for 60-6 9 years old: 85 mL/min/1.73sq m Chronic Kidney Disease: <60 mL/min/1.73sq m Kidney failure: <15 mL/min/1.73sq m eGFR calculated using average adult body mass. Additional eGFR calculator available at: http://www.Sunfire.GILUPI/multiple_crcl_2012.htm GFR/1.73 sq M.predicted MDRD (S/P/Bld) [Vol rate/Area] NOT REPORTED [employer] Phone: Glucose [Mass/Vol] 118 mg/dL High 70 - 99 mg/dL [employer] Phone: Interpretation and review of laboratory results Abnormal [facility]: Potassium [Moles/Vol] 4.1 mmol/L 3.7 - 5.3 mmol/L [employer] Phone: Sodium [Moles/Vol] 137 mmol/L 135 - 144 mmol/L [employer] Phone: Urea nitrogen (BldV) [Mass/Vol] 16 mg/dL 8 - 23 mg/dL [employer] Phone: Urea nitrogen/Creatinine (Bld) [Mass ratio] 19 [facility]: [employer] Phone: CBCOrdered By: Boubacar gao on 09-22-2021 Hematocrit (Bld) [Volume fraction] 44.8 % 41 - 53 % [employer] Phone: Hemoglobin.gastrointe stinal spec 1 Ql (Stl) 15.4 g/dL 13.5 - 17.5 g/dL [employer] Phone: MCH (RBC) [Entitic mass] 32.1 pg 26 - 34 pg [employer] Phone: MCHC (RBC) [Mass/Vol] 34.3 g/dL 31 - 37 g/dL [facility]: MCV (RBC) [Entitic vol] 93.6 fL 80 - 100 fL [employer] Phone: NRBC Automated NOT REPORTED per 100 WBC Chlorine [facility] Work Phone: Platelet distribution width (Bld) [Ratio] 13.4 % 12.1 - 15.2 % [employer] Phone: Platelet mean volume (Bld) [Entitic vol] NOT REPORTED 6.0 - 12.0 fL [employer] Phone: Platelets (Bld) [#/Vol] 313 10*3/uL [employer] Phone: RBC (Bld) [#/Vol] 4.78 10*6/uL 4.5 - 5.9 m/uL [employer] Phone: WBC (Bld) [#/Vol] 6.6 10*3/uL [employer] Phone: [employer] Phone: MRI KNEE RIGHT WO CONTRASTOr dered By: Boubacar Vuong on 08-20-2021 1. There is a large radial tear at the medial meniscal root posteriorly with extrusion of the body of the medial meniscus. There is extensive high-grade and full-thickness articular cartilage loss throughout majority of the medial compartment. 2. Severe bone marrow edema is present in the medial tibial plateau with moderate bone marrow edema in the medial femoral condyle suspicious for areas of stress response. 3. No MRI evidence of lateral meniscal tear or acute ligament tear. 4. There is a [id number] joint effusion with high-grade articular cartilage loss involving the patellofemoral compartment along its medial aspect. Dojo Phone: EXAM: MRI KNEE RIGHT WO CONTRAST HISTORY: S83.241A. Medial knee pain. The patient felt a pop 6 to 8 weeks ago and has had pain since that time. History of prostate cancer. COMPARISON: X-rays from 07/14/2021. TECHNIQUE: Multiplanar and multisequence imaging of the right knee was performed without contrast. FINDINGS: The anterior cruciate ligament, posterior cruciate ligament, and collateral ligaments are intact. The patellar tendon demonstrates intermediate signal and mild tendinopathy. The distal quadriceps tendon is intact. There is abnormal blunting and truncation of the posterior horn of the medial meniscus towards the meniscal root consistent with a large radial tear. There is mild extrusion of the body of the medial meniscus with extensive high-grade and full-thickness articular cartilage loss throughout a majority of the weightbearing surface of the medial femoral condyle and medial tibial plateau. Severe bone marrow edema is present in the medial tibial plateau with moderate bone marrow edema in the medial femoral condyle suspicious for areas of stress response. No lateral meniscal tear is evident. Articular cartilage in the lateral compartment is preserved. There is a small to moderate joint effusion. High-grade articular cartilage loss involves the medial facet of the patella and patellar apex as well as the medial femoral trochlea. There is a small Spear cyst. Dojo Phone: Travis, pn Incoming Radiant Results From [facility] - 08/20/2021 3:52 PM EDT EXAM: MRI KNEE RIGHT WO CONTRAST HISTORY: S83.241A. Medial knee pain. The patient felt a pop 6 to 8 weeks ago and has had pain since that time. History of prostate cancer. COMPARISON: X-rays from 07/14/2021. TECHNIQUE: Multiplanar and multisequence imaging of the right knee was performed without contrast. FINDINGS: The anterior cruciate ligament, posterior cruciate ligament, and collateral ligaments are intact. The patellar tendon demonstrates intermediate signal and mild tendinopathy. The distal quadriceps tendon is intact. There is abnormal blunting and truncation of the posterior horn of the medial meniscus towards the meniscal root consistent with a large radial tear. There is mild extrusion of the body of the medial meniscus with extensive high-grade and full-thickness articular cartilage loss throughout a majority of the weightbearing surface of the medial femoral condyle and medial tibial plateau. Severe bone marrow edema is present in the medial tibial plateau with moderate bone marrow edema in the medial femoral condyle suspicious for areas of stress response. No lateral meniscal tear is evident. Articular cartilage in the lateral compartment is preserved. There is a small to moderate joint effusion. High-grade articular cartilage loss involves the medial facet of the patella and patellar apex as well as the medial femoral trochlea. There is a small Spear cyst. IMPRESSION: 1. There is a large radial tear at the medial meniscal root posteriorly with extrusion of the body of the medial meniscus. There is extensive high-grade and full-thickness articular cartilage loss throughout majority of the medial compartment. 2. Severe bone marrow edema is present in the medial tibial plateau with moderate bone marrow edema in the medial femoral condyle suspicious for areas of stress response. 3. No MRI evidence of lateral meniscal tear or acute ligament tear. 4. There is a [id number] joint effusion with high-grade articular cartilage loss involving the patellofemoral compartment along its medial aspect. Dojo Phone: Dojo Phone: XR KNEE RIGHT (MIN 4 VIEWS)O rdered By: Boubacar Vuong on 07-14-2021 Osteoarthritic changes, [id number]. Dojo Phone: EXAM: XR KNEE RIGHT (MIN 4 VIEWS) HISTORY: M25.561, 65-year-old male right knee pain. COMPARISON: None. TECHNIQUE: Right knee series. Standing views both knees, lateral AP and sunrise right knee. FINDINGS: Most of the joint space narrowing is in the medial compartment of the left knee. The right knee shows mild medial compartment and moderate patellofemoral narrowing with no chondrocalcinosis. Possibly a small right joint effusion, minimal. No erosion. Dojo Phone: Travis, pn Incoming Radiant Results From [facility] - 07/14/2021 5:51 PM EDT EXAM: XR KNEE RIGHT (MIN 4 VIEWS) HISTORY: M25.561, 65-year-old male right knee pain. COMPARISON: None. TECHNIQUE: Right knee series. Standing views both knees, lateral AP and sunrise right knee. FINDINGS: Most of the joint space narrowing is in the medial compartment of the left knee. The right knee shows mild medial compartment and moderate patellofemoral narrowing with no chondrocalcinosis. Possibly a small right joint effusion, minimal. No erosion. IMPRESSION: Osteoarthritic changes, [id number]. Dojo Phone: Dojo Phone: Basic Metabolic PanelOrdered By: Boubacar Vuong on 06-21-2021 Anion gap [Moles/Vol] 11 mmol/L 9 - 17 mmol/L Dojo Phone: Calcium [Mass/Vol] 8.7 mg/dL 8.6 - 10. 4 mg/dL Dojo Phone: Chloride [Moles/Vol] 103 mmol/L 98 - 10 7 mmol/L Dojo Phone: CO2 [Moles/Vol] 27 mmol/L 20 - 31 mmol/L Dojo Phone: Creatinine [Mass/Vol] 0.93 mg/dL 0.70 - 1.20 mg/dL Dojo Phone: GFR >60 >60 mL/min [employer] Phone: GFR Non- >60 >60 mL/min Dojo Phone: GFR/1.73 sq M.predicted MDRD (S/P/Bld) [Vol rate/Area] Dojo Phone: Comment on above: Average GFR for 60-6 9 years old: 85 mL/min/1.73sq m Chronic Kidney Disease: <60 mL/min/1.73sq m Kidney failure: <15 mL/min/1.73sq m eGFR calculated using average adult body mass. Additional eGFR calculator available at: http://www.[employer]il[employer]/multiple_crcl_2012.htm GFR/1.73 sq M.predicted MDRD (S/P/Bld) [Vol rate/Area] NOT REPORTED Dojo Phone: Glucose [Mass/Vol] 114 mg/dL High 70 - 99 mg/dL Dojo Phone: Interpretation and review of laboratory results Abnormal Dojo Phone: Potassium [Moles/Vol] 4.1 mmol/L 3.7 - 5.3 mmol/L Dojo Phone: Sodium [Moles/Vol] 141 mmol/L 135 - 144 mmol/L Dojo Phone: Urea nitrogen (BldV) [Mass/Vol] 22 mg/dL 8 - 23 mg/dL Dojo Phone: Urea nitrogen/Creatinine (Bld) [Mass ratio] 24 High Dojo Phone: Dojo Phone: CBCOrdered By: Boubacar gao on 06-21-2021 Hematocrit (Bld) [Volume fraction] 44.0 % 41 - 53 % Dojo Phone: Hemoglobin.gastrointe stinal spec 1 Ql (Stl) 15.2 g/dL 13.5 - 17.5 g/dL Dojo Phone: MCH (RBC) [Entitic mass] 32.2 pg 26 - 34 pg Dojo Phone: MCHC (RBC) [Mass/Vol] 34.5 g/dL 31 - 37 g/dL [employer] Phone: MCV (RBC) [Entitic vol] 93.3 fL 80 - 100 fL Dojo Phone: NRBC Automated NOT REPORTED per 100 WBC Chlorine [facility] Work Phone: Platelet distribution width (Bld) [Ratio] 13.4 % 12.1 - 15.2 % Dojo Phone: Platelet mean volume (Bld) [Entitic vol] NOT REPORTED 6.0 - 12.0 fL Dojo Phone: Platelets (Bld) [#/Vol] 273 10*3/uL Dojo Phone: RBC (Bld) [#/Vol] 4.72 10*6/uL 4.5 - 5.9 m/uL Dojo Phone: WBC (Bld) [#/Vol] 7.3 10*3/uL Dojo Phone: Dojo Phone: XR CHEST (2 VW)Ordered By: Gurpreet Vuong on 06-21-2021 No acute cardiopulmonary abnormality. Dojo Phone: EXAM: XR CHEST (2 VW ) HISTORY: Z01.811 preop testing. COMPARISON: None. TECHNIQUE: PA and lateral views of the chest with 3 images. FINDINGS: Heart size satisfactory. No mediastinal widening is seen. Central vasculature is symmetrical and satisfactory. Lung galarza are well expanded and clear. No effusion is seen. Osseous structures appear intact. Dorsal arthrosis is noted. Dojo Phone: Travis, [facility] Incoming Radiant Results From [facility] - 06/21/2021 11:37 AM EDT EXAM: XR CHEST (2 VW) HISTORY: Z01.811 preop testing. COMPARISON: None. TECHNIQUE: PA and lateral views of the chest with 3 images. FINDINGS: Heart size satisfactory. No mediastinal widening is seen. Central vasculature is symmetrical and satisfactory. Lung galarza are well expanded and clear. No effusion is seen. Osseous structures appear intact. Dorsal arthrosis is noted. IMPRESSION: No acute cardiopulmonary abnormality. Dojo Phone: Dojo Phone: XR HAND LEFT (MIN 3 VIEWS)Or dered By: Boubacar Vuong on 06-09-2021 Nonspecific soft tissue protuberance measuring 10 mm in greatest diameter underlies the skin marker with no internal calcification or bony abnormality. Mild diffuse degenerative changes. Dojo Phone: EXAM: XR HAND LEFT (MIN 3 VIEWS) HISTORY: Reason for exam:->left hand cyst 65-year-old male. COMPARISON: None. TECHNIQUE: Three views left hand. FINDINGS: Skin marker placed over the area of concern overlies the dorsal aspect of the proximal third metacarpal. Nonspecific soft tissue protuberance measuring 10 mm in greatest diameter underlies the skin marker with no internal calcification or bony abnormality. Mild diffuse degenerative narrowing in the interphalangeal joints and at the first carpometacarpal joint. Dojo Phone: Travis, pn Incoming Radiant Results From [facility] - 06/09/2021 3:10 PM EDT EXAM: XR HAND LEFT (MIN 3 VIEWS) HISTORY: Reason for exam:->left hand cyst 65-year-old male. COMPARISON: None. TECHNIQUE: Three views left hand. FINDINGS: Skin marker placed over the area of concern overlies the dorsal aspect of the proximal third metacarpal. Nonspecific soft tissue protuberance measuring 10 mm in greatest diameter underlies the skin marker with no internal calcification or bony abnormality. Mild diffuse degenerative narrowing in the interphalangeal joints and at the first carpometacarpal joint. IMPRESSION: Nonspecific soft tissue protuberance measuring 10 mm in greatest diameter underlies the skin marker with no internal calcification or bony abnormality. Mild diffuse degenerative changes. [employer] Work Phone: Dojo Phone: MRI KNEE LEFT WO CONTRASTon 08-10-2020 1. There is a radial tear at the medial meniscal root posteriorly with a horizontal free edge and undersurface tear of the body of the medial meniscus. Moderate to high-grade articular cartilage loss is evident in the medial compartment. 2. No MRI evidence of lateral meniscal tear. There is low to moderate-grade articular cartilage loss along the lateral femoral condyle. 3. No acute ligament tear. 4. There is a small to moderate joint effusion with moderate to high-grade articular cartilage loss in the patellofemoral compartment and focal full-thickness articular cartilage loss involving the medial facet of the patella. 5. There is mild bone marrow edema in the medial tibial plateau and medial femoral condyle medially suspicious for mild reactive edema or mild stress response. [facility] [place] EXAM: MRI KNEE LEFT WO CONTRAST HISTORY: M23.92. Medial and posterior left knee pain for 2 weeks. No recent injury. History of prostate cancer. COMPARISON: Left knee x-rays from 07/29/2020. TECHNIQUE: Multiplanar and multisequence imaging of the left knee was performed without contrast. FINDINGS: The anterior cruciate ligament, posterior cruciate ligament and collateral ligaments are intact. The patellar tendon demonstrate intermediate signal consistent with mild tendinopathy. There is moderate spurring at the quadriceps insertion. There is a horizontal free edge and undersurface tear of the body of the medial meniscus. There is also a focal radial tear towards the medial meniscal root posteriorly with blunting and truncation of the posterior horn of the medial meniscus towards the meniscal root. Moderate to high-grade articular cartilage loss is present in the medial compartment more pronounced along the medial femoral condyle centrally. No lateral meniscal tear is identified. There is low to moderate-grade articular cartilage loss involving the central to posterior aspect of the lateral femoral condyle. There is a small to moderate joint effusion. Moderate to high-grade articular cartilage loss is present in the patellofemoral compartment with full-thickness articular cartilage loss along the medial facet of the patella. There is a small Spear cyst. Mild bone marrow edema is present in the medial tibial plateau and medial femoral condyle medially. [facility] [place] [place] Travis, Mh[facility] Incoming Radiant Results From [facility] - 08/10/2020 4:56 PM EDT EXAM: MRI KNEE LEFT WO CONTRAST HISTORY: M23.92. Medial and posterior left knee pain for 2 weeks. No recent injury. History of prostate cancer. COMPARISON: Left knee x-rays from 07/29/2020. TECHNIQUE: Multiplanar and multisequence imaging of the left knee was performed without contrast. FINDINGS: The anterior cruciate ligament, posterior cruciate ligament and collateral ligaments are intact. The patellar tendon demonstrate intermediate signal consistent with mild tendinopathy. There is moderate spurring at the quadriceps insertion. There is a horizontal free edge and undersurface tear of the body of the medial meniscus. There is also a focal radial tear towards the medial meniscal root posteriorly with blunting and truncation of the posterior horn of the medial meniscus towards the meniscal root. Moderate to high-grade articular cartilage loss is present in the medial compartment more pronounced along the medial femoral condyle centrally. No lateral meniscal tear is identified. There is low to moderate-grade articular cartilage loss involving the central to posterior aspect of the lateral femoral condyle. There is a small to moderate joint effusion. Moderate to high-grade articular cartilage loss is present in the patellofemoral compartment with full-thickness articular cartilage loss along the medial facet of the patella. There is a small Spear cyst. Mild bone marrow edema is present in the medial tibial plateau and medial femoral condyle medially. IMPRESSION: 1. There is a radial tear at the medial meniscal root posteriorly with a horizontal free edge and undersurface tear of the body of the medial meniscus. Moderate to high-grade articular cartilage loss is evident in the medial compartment. 2. No MRI evidence of lateral meniscal tear. There is low to moderate-grade articular cartilage loss along the lateral femoral condyle. 3. No acute ligament tear. 4. There is a small to moderate joint effusion with moderate to high-grade articular cartilage loss in the patellofemoral compartment and focal full-thickness articular cartilage loss involving the medial facet of the patella. 5. There is mild bone marrow edema in the medial tibial plateau and medial femoral condyle medially suspicious for mild reactive edema or mild stress response. [place], [place] XR KNEE LEFT (MIN 4 VIEWS)on 07-29-2020 Moderate osteoarthritic changes without fracture or joint effusion. [place], [place] EXAM: XR KNEE LEFT (MIN 4 VIEWS) HISTORY: M25.562 acute left knee pain 2 weeks. COMPARISON: None. TECHNIQUE: Left knee series-standing views of both knees, AP, lateral, and sunrise views left knee. FINDINGS: Left knee show spurring of the tibial spines, mild lateral and moderate medial compartment joint space narrowing. Moderate patellofemoral osteoarthritic change and osteophyte formation without joint effusion. Mild varus angulation bilaterally due to some loss of medial joint compartments fairly symmetric with the right knee. [place], [place] Travis, M[facility] Incoming Radiant Results From [facility] - 07/29/2020 9:44 AM EDT EXAM: XR KNEE LEFT (MIN 4 VIEWS) HISTORY: M25.562 acute left knee pain 2 weeks. COMPARISON: None. TECHNIQUE: Left knee series-standing views of both knees, AP, lateral, and sunrise views left knee. FINDINGS: Left knee show spurring of the tibial spines, mild lateral and moderate medial compartment joint space narrowing. Moderate patellofemoral osteoarthritic change and osteophyte formation without joint effusion. Mild varus angulation bilaterally due to some loss of medial joint compartments fairly symmetric with the right knee. IMPRESSION: Moderate osteoarthritic changes without fracture or joint effusion. [place], [place] Vital Signs Date Time Vital Sign Value Performing Clinician Facility 10-09-2024 10:08-0500 Body temperature 96.69 [degF] LUCI Ledesma MD Work Phone: [facility] 10-09-2024 10:08-0500 Body weight 99 kg LUCI Ledesma MD Work Phone: [facility] 10-09-2024 10:08-0500 Diastolic blood pressure 82 mm[Hg] LUCI Ledesma MD Work Phone: [facility] 10-09-2024 10:08-0500 Heart rate 65 /min LUCI Ledesma MD Work Phone: [facility] 10-09-2024 10:08-0500 Respiratory rate 18 /min LUCI Ledesma MD Work Phone: [facility] 10-09-2024 10:08-0500 SaO2% (BldA) [Mass fraction] 97 % LUCI Ledesma MD Work Phone: [facility] 10-09-2024 10:08-0500 Systolic blood pressure 152 mm[Hg] LUCI Ledesma MD Work Phone: [facility] 09-30-2024 12:52-0500 Blood Pressure Location Myrtle MEJIA [facility] 09-30-2024 12:52-0500 Diastolic blood pressure 89 mm[Hg] Myrtle MEJIA [facility] 09-30-2024 12:52-0500 Heart rate 65 /min Myrtle MEJIA [facility] 09-30-2024 12:52-0500 Systolic blood pressure 152 mm[Hg] Myrtle MEJIA [facility] 08-28-2024 11:47-0400 Body temperature 98.1 [degF] LUCI Ledesma MD Work Phone: [facility] 08-28-2024 11:47-0400 Body weight 98.6 kg LUCI Ledesma MD Work Phone: [facility] 08-28-2024 11:47-0400 Diastolic blood pressure 80 mm[Hg] LUCI Ledesma MD Work Phone: [facility] 08-28-2024 11:47-0400 Heart rate 53 /min LUCI Ledesma MD Work Phone: [facility] 08-28-2024 11:47-0400 Respiratory rate 16 /min LUCI Ledesma MD Work Phone: [facility] 08-28-2024 11:47-0400 SaO2% (BldA) [Mass fraction] 99 % LUCI Ledesma MD Work Phone: [facility] 08-28-2024 11:47-0400 Systolic blood pressure 147 mm[Hg] LUCI Ledesma MD Work Phone: [facility] 07-11-2024 13:51-0400 Body temperature 97 [degF] LUCI Ledesma MD Work Phone: [facility] 07-11-2024 13:51-0400 Body weight 99 kg LUCI Ledesma MD Work Phone: [facility] 07-11-2024 13:51-0400 Diastolic blood pressure 89 mm[Hg] LUCI Ledesma MD Work Phone: [facility] 07-11-2024 13:51-0400 Heart rate 66 /min LUCI Ledesma MD Work Phone: [facility] 07-11-2024 13:51-0400 Respiratory rate 18 /min LUCI Ledesma MD Work Phone: [facility] 07-11-2024 13:51-0400 SaO2% (BldA) [Mass fraction] 97 % LUCI Ledesma MD Work Phone: [facility] 07-11-2024 13:51-0400 Systolic blood pressure 150 mm[Hg] LUCI Ledesma MD Work Phone: [facility] 06-03-2024 09:14-0400 Blood Pressure Location Myrtle MEJIA [facility] 06-03-2024 09:14-0400 Diastolic blood pressure 81 mm[Hg] Myrtle MEJIA [facility] 06-03-2024 09:14-0400 Heart rate 59 /min Myrtlehong MEJIA [facility] 06-03-2024 09:14-0400 Respiratory rate 16 /min Myrtle MEJIA [facility] 06-03-2024 09:14-0400 Systolic blood pressure 135 mm[Hg] Myrtle MEJIA [facility] 12-19-2022 08:38-0500 Blood Pressure Location Myrtlehong MEJIA [facility] 12-19-2022 08:38-0500 Diastolic blood pressure 81 mm[Hg] Myrtlehong MEJIA [facility] 12-19-2022 08:38-0500 Heart rate 71 /min Myrtlehong MEJIA [facility] 12-19-2022 08:38-0500 Respiratory rate 16 /min Myrtlehong MEJIA [facility] 12-19-2022 08:38-0500 Systolic blood pressure 129 mm[Hg] Myrtle MEJIA [facility] Encounters Encounter Date Encounter Type Care Provider Facility Start: 03-21-2025 ambulatory Myrtle R MEJIA Facili ty:[facility] [place] Start: 01-10-2025 ambulatory Myrtle R MEJIA Facili ty:[facility] [place] Start: 12-19-2024 ambulatory Myrtle R MEJIA Facili ty:[facility] [place] Start: 12-12-2024 ambulatory Myrtle R MEJIA Facili ty:[id number] Start: 12-03-2024 End: 12-03-2024 [facility] Start: 12-03-2024 End: 12-03-2024 Subsequent hospital visit by physician Awais Ruiz MD Work Phone: [facility] Comment on above: Diarrhea, unspecifie d type Start: 11-28-2024 End: 12-06-2024 Radiation Oncology Note Olivia Ledesma MD Work Phone: Radiation Oncology Comment on above: Simulation Note Start: 11-28-2024 End: 11-28-2024 ambulatory Olivia LEDESMA Facility:[facility] Start: 11-28-2024 End: 12-06-2024 Patient encounter procedure Olivia Ledesma MD Work Phone: Radiation Oncology Comment on above: Malignant neoplasm o f prostate (HCC) (Primary Dx) Start: 10-09-2024 End: 10-09-2024 ambulatory Olivia GERMAN LEDESMA Facility:[facility] Start: 10-09-2024 End: 10-09-2024 Patient encounter procedure [facility] Provider [facility] Department Comment on above: Malignant neoplasm o f prostate (HCC) (Primary Dx) Start: 10-08-2024 End: 10-08-2024 Bamboo flowsheet Herberth Ball DO Work Phone: [facility] Start: 10-08-2024 End: 10-08-2024 Bamboo flowsheet Herberth Ball DO Work Phone: [facility] Start: 10-08-2024 End: 10-08-2024 Postop follow up visit related to original px Herberth Ball DO Work Phone: [facility] Comment on above: Pseudophakia (Primar y Dx) Start: 10-08-2024 End: 10-08-2024 ambulatory HERBERTH BALL Not Available Start: 10-01-2024 End: 10-01-2024 [facility] Start: 10-01-2024 End: 10-01-2024 Subsequent hospital visit by physician Awais Ruiz MD Work Phone: [facility] Comment on above: Screening for lipid disorders; Hyperglycemia Start: 09-30-2024 End: 09-30-2024 ambulatory Myrtle MEJIA Facility:[facility] Start: 09-30-2024 End: 09-30-2024 Patient encounter procedure Myrtle MEJIA [facility] Start: 09-10-2024 End: 09-10-2024 ambulatory Myrtle Mejia [facility] Work Phone: Start: 09-10-2024 End: 09-10-2024 Departed Referred MD Myrtle Mejia Work Phone: [facility] [place] Work Phone: Start: 09-10-2024 End: 09-10-2024 ambulatory Myrtle MEJIA Facility:CD:[id number] Start: 08-28-2024 End: 08-28-2024 ambulatory Olivia LEDESMA Facility:[facility] Start: 08-28-2024 End: 08-28-2024 Patient encounter procedure Olivia Ledesma MD Work Phone: Radiation Oncology Comment on above: Malignant neoplasm o f prostate (HCC) (Primary Dx) Start: 08-27-2024 End: 08-27-2024 ambulatory HERBERTH BALL Not Available Start: 08-21-2024 End: 08-21-2024 Subsequent hospital visit by physician [facility] (Istat/3t) Work Phone: [facility]iology MRI Comment on above: Personal history of malignant neoplasm of prostate [Z85.46] Start: 07-16-2024 End: 07-18-2024 ambulatory [facility] Start: 07-16-2024 End: 07-18-2024 Subsequent hospital visit by physician [facility] MRI Comment on above: Personal history of malignant neoplasm of prostate; Liver lesion Start: 07-11-2024 End: 07-11-2024 ambulatory Olivia LEDESMA Facility:[facility] Start: 07-11-2024 End: 07-11-2024 Patient encounter procedure Olivia Ledesma MD Work Phone: Radiation Oncology Comment on above: Personal history of malignant neoplasm of prostate (Primary Dx) Start: 07-02-2024 End: 07-02-2024 ambulatory KENDRICK SWENSON Facility:[facility] Start: 07-02-2024 End: 07-02-2024 Subsequent hospital visit by physician Arrival Time Radiology Work Phone: Radiology [facility] Start: 06-03-2024 End: 06-03-2024 ambulatory Myrtle MEJIA Facility:[facility] Start: 06-03-2024 End: 06-03-2024 Patient encounter procedure Myrtle MEJIA [facility] Start: 05-28-2024 End: 05-28-2024 ambulatory [facility] Start: 05-28-2024 End: 05-28-2024 Subsequent hospital visit by physician Awais Ruiz MD Work Phone: [facility] Start: 03-08-2024 End: 03-08-2024 ambulatory [facility]LE [facility] Start: 12-04-2023 End: 12-04-2023 ambulatory Myrtle MEJIA Facility:[facility] Start: 05-16-2023 End: 05-16-2023 Subsequent hospital visit by physician Awais Ruiz MD Work Phone: [facility] Start: 12-19-2022 End: 12-19-2022 Patient encounter procedure Myrtle MEJIA [facility] Start: 12-14-2022 End: 12-14-2022 Subsequent hospital visit by physician Awais Ruiz MD Work Phone: [facility] Start: 09-27-2022 End: 09-27-2022 Patient encounter status Awais Ruiz MD Work Phone: [facility] Start: 09-27-2022 End: 09-27-2022 Subsequent hospital visit by physician Awais Ruiz MD Work Phone: [facility] Comment on above: Wellness examination ; Hyperglycemia; Screening cholesterol level Start: 06-28-2022 End: 06-28-2022 Subsequent hospital visit by physician Awais Ruiz MD Work Phone: [facility] Start: 02-22-2022 End: 02-24-2022 Subsequent hospital visit by physician Jaden Ultrasound Room [facility] Ultrasound Comment on above: Microscopic hematuri a; Personal history of malignant neoplasm of prostate; Personal history of urinary calculi Kidney stone Start: 09-22-2021 End: 09-22-2021 Subsequent hospital visit by physician Awais Ruiz MD Work Phone: [facility] Start: 08-20-2021 End: 08-22-2021 Subsequent hospital visit by physician Jaden Mri Scanner [facility] MRI Comment on above: Traumatic tear of me dial meniscus of right knee, initial encounter Start: 07-14-2021 End: 07-16-2021 Subsequent hospital visit by physician Jaden [facility] Comment on above: Right knee pain, uns pecified chronicity Start: 07-14-2021 End: 07-16-2021 Subsequent hospital visit by physician Awais Ruiz MD Work Phone: [facility] Radiology Start: 06-23-2021 End: 06-23-2021 Subsequent hospital visit by physician Jaden Covid19 Pat Screening Schedule [facility] PRE ADMIT Comment on above: Arrived Start: 06-21-2021 End: 06-23-2021 [facility] Start: 06-21-2021 End: 06-23-2021 Subsequent hospital visit by physician Jaden Additional Xray At [facility]ER[facility] Comment on above: Pre-op chest exam Start: 06-09-2021 End: 06-11-2021 Subsequent hospital visit by physician Jaden Dig Rad 1 [facility] Radiology Comment on above: Pain Start: 06-09-2021 End: 06-11-2021 Subsequent hospital visit by physician Awais Ruiz MD Work Phone: [facility] Start: 12-08-2020 End: 12-08-2020 Subsequent hospital visit by physician Kendrick SINGH Laboratory Start: 08-10-2020 End: 08-12-2020 Subsequent hospital visit by physician Jaden Mri Scanner [facility] MRI Comment on above: Internal derangement of left knee Start: 07-29-2020 End: 07-31-2020 Subsequent hospital visit by physician Jaden Additional Xray At [facility] Radiology Comment on above: Left knee pain, unsp ecified chronicity Start: 07-29-2020 End: 07-31-2020 Subsequent hospital visit by physician Kendrick Swenson [facility] Radiology Start: 11-12-2019 End: 11-12-2019 Subsequent hospital visit by physician Kendrick Swenson MD Work Phone: [facility] Laboratory Procedures Date Procedure Procedure Detail Performing Clinician Start: 12-03-2024 Comprehensive metabo lic panel Awais Ruiz MD Work Phone: Start: 10-01-2024 End: 10-01-2024 Comprehensive metabolic panel Hanny Gonzales TECHNICAL PROFESSIONAL - BESSEMER CONVERTER OPERATOR Work Phone: Start: 10-01-2024 Lipid panel Hanny samayoa TECHNICAL PROFESSIONAL - BES[employer]ER CONVERTER OPERATOR Work Phone: Start: 10-01-2024 Lipid 1996 panel - S irma or Plasma [facility] Provider Start: 09-10-2024 Transrectal biopsy o f prostate using ultrasound guidance Myrtle MEJIA Start: 08-27-2024 Oph bmtry prtl coher intrfrmtry io lens pwr malka Herberth Ball DO Work Phone: Start: 08-27-2024 End: 08-27-2024 Ophth medical xm&eval compre new pt 1/> vst Age-related nuclear cataract of both eyes Herberth Ball DO Work Phone: Comment on above: Age-related nuclear cataract of both eyes (Primary Dx) Start: 08-21-2024 3d rendering w/interp&postproc diff work station G German Ledesma MD Work Phone: Start: 08-21-2024 Mri pelvis w/o & w/contrast material G German Ledesma MD Work Phone: Start: 07-16-2024 Assay of urea nitrog en quantitative Zachary German Ledesma MD Work Phone: Start: 05-28-2024 PSA screening Myrtle Mejia MD Work Phone: Start: 05-16-2023 Assay of prostate sp ecific antigen total Myrtle Mejia Work Phone: Start: 12-14-2022 PSA screening Awais mccray MD Work Phone: Comment on above: The Peela ECLIA as say is used. Results obtained with different assay methods cannot be used interchangeably. Start: 12-14-2022 Assay of prostate sp ecific antigen complexed Myrtle Mejia Work Phone: Start: 09-27-2022 Comprehensive metabo lic panel Awais Ruiz MD Work Phone: Start: 09-27-2022 Lipid panel Awais Ruiz MD Work Phone: Start: 09-27-2022 PATIENT FASTING? Awais Ruiz MD Work Phone: Start: 09-27-2022 Lipid 1996 panel - S irma or Plasma NA Nata JOHN Work Phone: Start: 03-01-2022 Cystoscopy Myrtle CEDILLO Start: 02-22-2022 Radiologic exam abdo men 1 view Myrtle Mejia Work Phone: Start: 02-22-2022 Us retroperitoneal r eal time w/image complete Myrtle Mejia Work Phone: Start: 09-22-2021 Basic metabolic pane l calcium total Boubacar Vuong DO Work Phone: Start: 08-20-2021 Mri any jt lower ext rem w/o contrast matrl Boubacar Vuong DO Work Phone: Start: 07-14-2021 Radiologic exam knee complete 4/more views Boubacar Vuong DO Work Phone: Start: 06-21-2021 Ecg routine ecg w/le ast 12 lds w/i&r Boubacar Vuong DO Work Phone: Start: 06-21-2021 Radiologic exam ches t 2 views Boubacar Vuong DO Work Phone: Start: 06-21-2021 Basic metabolic pane l calcium total Boubacar Vuong DO Work Phone: Start: 06-09-2021 Radex hand minimum 3 views Boubacar Vuong DO Work Phone: Start: 09-04-2020 Arthroscopy of knee Jania MEJIA Start: 08-10-2020 Mri any jt lower ext rem w/o contrast matrl Boubacar Vuong Other Phone: Start: 07-29-2020 Radiologic exam knee complete 4/more views Boubacar Vuong Other Phone: Start: 11-12-2019 End: 11-12-2019 Assay of prostate specific antigen complexed Myrtle Mejia Work Phone: Comment on above: The [place] ECLIA as say is used. Results obtained with different assay methods cannot be used interchangeably. Start: 06-27-2013 Insertion of radioac tive implant into interstitial tissue of prostate with transperineal insertion of catheter Myrtle MEJIA Start: 12-18-2012 Transrectal biopsy o f prostate using ultrasound guidance Myrtle MEJIA Comment on above: w/ cysto Start: 11-14-2012 Colonoscopy [facility] Mw Appendectomy Myrtle MEJIA Plan of Treatment Date Care Activity Detail Author Start: 2030 Respiratory Syncytia l Virus (RSV) or age 60 yrs+ (1 - 1-dose 75+ series) Respiratory Syncytial Virus (RSV) or age 60 yrs+ (1 - 1-dose 75+ series) [facility] Start: 2030 RSV Vaccine (1 - 1-d ose 75+ series) RSV Vaccine (1 - 1-dose 75+ series) [facility] Start: 10-01-2029 Lipid panel [facility] Start: 10-01-2029 Prostate specific antigen measurement Prostate Cancer Screening Discussion [facility] Start: 10-01-2027 Diabetes Screening Diabetes Screenin g [facility] Start: 09-27-2027 Lipid panel [facility] Start: 10-14-2026 Screening for malign ant neoplasm of colon Fecal-DNA (Cologuard): Average risk [facility] Start: 12-03-2025 Depression Screen Depression Screen [facility] Start: 10-16-2025 End: 10-16-2025 Patient encounter procedure 10/16/2025 10:15 AM EST Office Visit [address] [phone] Awais Ruiz MD [address] [place] [phone] AWV & 6 m check up [facility] Comment on above: AWV & 6 m check up Start: 10-15-2025 Annual Wellness Visi t (Medicare) Annual Wellness Visit (Medicare) [facility] Start: 10-01-2025 Prostate specific antigen measurement Prostate Specific Antigen (PSA) Screening or Monitoring [facility] Start: 09-27-2025 Diabetes Screening Diabetes Screenin olivia [facility] Start: 01-22-2025 End: 01-22-2025 Patient encounter procedure Radiation Oncology Comment on above: Follow up Start: 01-09-2025 End: 01-09-2025 Patient encounter procedure 01/09/2025 8:00 AM EST Appointment Radiology Pet CT [address] [place] [address] [place] [address] Scan [facility] Comment on above: Post CT Scan [facility] Start: 12-25-2024 End: 12-25-2024 Patient encounter procedure Radiation Oncology Comment on above: Follow up Start: 12-12-2024 End: 12-12-2024 Patient encounter procedure Radiation Oncology Comment on above: Seed Im[facility] at [facility] Start: 11-28-2024 End: 11-28-2024 Patient encounter procedure 11/28/2024 9:00 AM EST Office Visit Radiation Oncology [address] [place] [address] Olivia Ledesma MD [address] [place] [address] Volume Study Radiation Oncology Comment on above: Volume Study Start: 11-27-2024 Advance Directive Discussion Advance Directive Discussion [facility] Start: 10-14-2024 End: 10-14-2024 Patient encounter procedure 10/14/2024 10:00 AM EST Office Visit [address] [phone] Awais Ruiz MD [address] [place] [phone] AWV and Check up [facility] Comment on above: AWV and Check up Start: 10-11-2024 End: 01-10-2025 Prostate specific Ag [Mass/volume] in Serum or Plasma PROSTATE-SPECIFIC ANTIGEN DIAGNOSTIC Lab Routine Personal history of malignant neoplasm of prostate Expected: 10/11/2024, Expires: 01/10/2025 [facility] Comment on above: Expected: 10/11/2024 , Expires: 01/10/2025 Start: 10-09-2024 Annual Wellness Visi t (Medicare) Annual Wellness Visit (Medicare) [facility] Start: 10-09-2024 Depression Screen Depression Screen [facility] Start: 10-08-2024 End: 10-08-2024 Patient encounter procedure 10/08/2024 11:00 AM EST Office Visit [facility] [address] [place] [phone] Herberth Ball DO [address] [place] [address] [facility] Start: 10-07-2024 End: 10-07-2024 Patient encounter procedure 10/07/2024 11:05 AM EST Procedure Visit [facility] Herberth Ball, DO [address] [place] [address] [facility] Start: 08-28-2024 End: 08-28-2024 Patient encounter procedure 08/28/2024 11:45 AM EDT Office Visit Radiation Oncology [address] [address] Olivia Ledesma MD [address] [place] [address] Followup Radiation Oncology Comment on above: Followup Start: 08-21-2024 End: 08-21-2024 Patient encounter procedure 08/21/2024 2:40 PM EDT Appointment [facility] [place] [address] [place], [place] [id number] MRI PROSTATE [facility] MRI Comment on above: MRI PROSTATE Start: 07-28-2024 Covid-19 Vaccine ( season) Covid-19 Vaccine ( season) [facility] Start: 07-28-2024 Covid-19 Vaccine ( season) Covid-19 Vaccine ( season) [facility] Start: 07-28-2024 Influenza vaccination Influenza Vacc ine (#1) [facility] Start: 06-27-2024 Influenza vaccination Flu vaccine (# 1) [facility] Start: 11-27-2023 Advance Directive Discussion Advance Directive Discussion [facility] Start: 10-15-2023 Screening for malign ant neoplasm of colon Colorectal Cancer Screen [facility] Start: 10-09-2023 End: 10-09-2023 Patient encounter procedure 10/09/2023 Office Visit Family Medicine Awais Ruiz MD [address] [place] [address] [facility] Start: 09-30-2023 Annual Wellness Visi t (AWV) Annual Wellness Visit (AWV) [facility] Start: 09-29-2023 Depression Screen Depression Screen [facility] Start: 09-21-2023 End: 09-21-2023 Patient encounter procedure 09/21/2023 Office Visit Awais Nguyen MD [address] [place] [address] [facility] Start: 09-20-2023 Depression Screen Depression Screen [facility] Start: 07-28-2023 Covid-19 Vaccine ( season) Covid-19 Vaccine ( season) [facility] Start: 06-27-2023 Influenza vaccination Flu vacc ine (Season Ended) [facility] Start: 12-07-2022 Prostate specific antigen measurement Prostate Specific Antigen (PSA) Screening or Monitoring [facility] Start: 09-29-2022 End: 09-29-2022 Patient encounter procedure 09/29/2022 Office Visit Awais Nguyen MD [address] [place] [address] [facility] Start: 09-20-2022 End: 09-20-2022 Patient encounter procedure 09/20/2022 Office Visit Awais Nguyen MD [address] [place] [address] [facility] Start: 07-28-2022 Influenza vaccination Flu vaccine (# 1) [facility] Start: 06-27-2022 Influenza vaccination Flu vaccine (# 1) [facility] Start: 03-24-2022 End: 03-24-2022 Patient encounter procedure 03/24/2022 Office Visit Awais Nguyen MD [address] [place] [address] [phone] [facility] Start: 03-23-2022 Depression Screen Depression Screen [facility] Start: 08-18-2021 Prostate specific antigen measurement Prostate Cancer Screening Discussion [facility] Start: 07-28-2021 Influenza vaccination Flu vaccine (# 1) [facility] Start: 06-23-2021 End: 06-23-2021 Patient encounter procedure 06/23/2021 Appointment Pre-Admission Testing [facility] PRE ADMIT Start: 06-08-2021 Annual Wellness Visi t (AWV) Annual Wellness Visit (AWV) [employer] Phone: Start: 2020 Abdominal aortic aneurysm screening [facility] Start: 2020 Pneumococcal 65+ yea rs Vaccine (1 - PCV) Pneumococcal 65+ years Vaccine (1 - PCV) [facility] Start: 2020 Pneumococcal 65+ yea rs Vaccine (1 of 1 - PCV) Pneumococcal 65+ years Vaccine (1 of 1 - PCV) [facility] [employer] Start: 2020 Pneumococcal 65+ yea rs Vaccine (1 of 1 - PPSV23) Pneumococcal 65+ years Vaccine (1 of 1 - PPSV23) [facility] [employer] Start: 2020 Pneumococcal Vaccine : 65+ (1 of 1 - PCV) Pneumococcal Vaccine: 65+ (1 of 1 - PCV) [facility] Start: 07-28-2020 Influenza vaccination Flu vaccine (# 1) [facility] [place] Start: 07-28-2019 Influenza vaccination Flu vaccine (# 1) [employer] Phone: Start: 11-14-2015 Colon cancer screen colonoscopy Colon cancer screen colonoscopy [employer] Phone: Start: 11-14-2015 Screening for malign ant neoplasm of colon [facility] Start: 2015 Hepatitis B vaccine (1 of 3 - Risk 3-dose series) Hepatitis B vaccine (1 of 3 - Risk 3-dose series) [facility] Start: 2015 Respiratory Syncytia l Virus (RSV) or age 60 yrs+ (1 - 1-dose 60+ series) Respiratory Syncytial Virus (RSV) or age 60 yrs+ (1 - 1-dose 60+ series) [facility] [employer] Start: 2015 RSV Vaccine (1 - 1-d ose 60+ series) RSV Vaccine (1 - 1-dose 60+ series) [facility] Start: 2005 Pneumococcal Vaccine : 50+ (1 of 1 - PCV) Pneumococcal Vaccine: 50+ (1 of 1 - PCV) [facility] Start: 2005 Shingles Vaccine (1 of 2) Shingles Vaccine (1 of 2) [facility] Start: 2005 Shingrix Vaccine (1 of 2) Shingrix Vaccine (1 of 2) [facility] Start: 2000 Screening for malign ant neoplasm of colon [facility] Start: 1995 Diabetes screen Diabetes screen [facility] Work Phone: Start: 1995 Lipid panel [facility] Start: 1995 Lipid screen Lipid screen [facility] Work Phone: Start: 1990 Diabetes screen Diabetes screen [facility] Start: 1974 DTaP/Tdap/Td vaccine (1 - Tdap) DTaP/Tdap/Td vaccine (1 - Tdap) [facility] Start: 1974 Hepatitis A vaccine (1 of 2 - Risk 2-dose series) Hepatitis A vaccine (1 of 2 - Risk 2-dose series) [facility] Start: 1974 Urine microalbumin profile DTaP,Tdap,Td Vaccine (1 - Tdap) [facility] Start: 1973 Anxiety Screening Anxiety Screening [facility] Start: 1973 Depression Screening Depression Scre [facility] Start: 1973 Hepatitis C screening B ON [facility] Start: 1970 HIV screen HIV screen [facility] Work Phone: Start: 1970 HIV screening HIV screen [facility] [place] [place] Start: 1967 COVID-19 Vaccine (1) COVID-19 Vaccin e (1) [facility] Work Phone: Start: 1966 DTaP/Tdap/Td vaccine (1 - Tdap) DTaP/Tdap/Td vaccine (1 - Tdap) [facility] Work Phone: Start: 1960 COVID-19 Vaccine (1) COVID-19 Vaccin e (1) [facility] Start: 05-07-1956 COVID-19 Vaccine (#1) COVID-19 Vacci ne (#1) [facility] Start: 1955 Abdominal aortic aneurysm screening Abdominal Aortic Aneurysm Screening [facility] Start: 1955 Annual Wellness Visi t (AWV) Annual Wellness Visit (AWV) [facility] [employer] Start: 1955 Hepatitis C screen Hepatitis C scree n [facility] Work Phone: Start: 1955 Hepatitis C screening Hepatitis C sc reen [facility] End: 06-23-2021 COVID-19 COVID-19 Lab Routine Once for 1 Occurrences starting 06/23/2021 until 06/23/2021 [facility] Work Phone: Comment on above: Once for 1 Occurrenc es starting 06/23/2021 until 06/23/2021 COVID-19 COVID-19 Lab Rou delilah 06/23/2021 9:25 AM [employer] Work Phone: EKG 12 Lead EKG 12 Lead ECG Routine 06/21/2021 8:17 AM [employer]EMS Phone: End: 07-16-2024 MR Abdomen WO and W contrast IV [facility] Work Phone: Comment on above: 1 Occurrences starti ng 07/16/2024 until 07/16/2024 End: 08-10-2025 MR Liver WO and W contrast IV MRI LIVER WO/W IVCON Radiology Routine Personal history of malignant neoplasm of prostate 1 Occurrences starting 07/11/2024 until 08/10/2025 [facility] Work Phone: Comment on above: 1 Occurrences starti ng 07/11/2024 until 08/10/2025 End: 08-10-2025 MR Prostate WO and W contrast IV MRI PROSTATE WO/W IVCON Radiology Routine Personal history of malignant neoplasm of prostate 1 Occurrences starting 07/11/2024 until 08/10/2025 [facility] Comment on above: 1 Occurrences starti ng 07/11/2024 until 08/10/2025 End: 08-10-2025 MR Unspecified body region 3D post processing MRI 3D POST PROCESSING Radiology Routine Personal history of malignant neoplasm of prostate 1 Occurrences starting 07/11/2024 until 08/10/2025 [facility] Comment on above: 1 Occurrences starti ng 07/11/2024 until 08/10/2025 End: 06-28-2022 PSA, Diagnostic [facility] [employer] Work Phone: Comment on above: Once for 1 Occurrenc es starting 06/28/2022 until 06/28/2022 End: 12-08-2020 PSA, free PSA, free Lab Routine Once for 1 Occurrences starting 12/08/2020 until 12/08/2020 [facility] [employer] Comment on above: Once for 1 Occurrenc es starting 12/08/2020 until 12/08/2020 PSA, free PSA, free Lab Ro utine 12/08/2020 3:50 PM EST [employer] Immunizations Immunization Date Immunization Notes Care Provider Alcira pearson 10-12-2020 influenza virus vaccine, unspecified formulation Myrtle MEJIA [facility] 09-25-2019 influenza virus vaccine, whole virus NA Nata JOHN Work Phone: [facility] 09-25-2019 influenza, whole Myrtle ADAMS [facility] NEGATED: Highlighted row has not occurred!12-13-2021 SARS-CoV-2 (COVID-19) Ad26 vaccine, recombinant Myrtle MEJIA [facility] Payers Date Payer Category Payer Self-pay 2022 Private Health Insurance [employer] [id number] 2022 Unknown [id number] 2020 Medicare [id number] 2019 Unknown [id number] 2014 Unknown [employer] M [employer] [address] xxxxxxxxxxxx 2014-Present [phone] [address] [place] [address] xxxxxxxxxxxx [id number] 2014 Medicare [id number] 1955 Unknown [id number] [id number] .1259 1955 Unknown [id number] [id number] .1259 1955 Unknown [id number] 2.16.840.1.305334.3.579.2 .727 1955 Unknown [id number] [id number] .727 1955 Unknown [id number] [id number] .727 1955 Unknown [id number] 2.16.840.1.493955.3.579.2 .727 1955 Unknown [id number] 2.16.840.1.050318.3.579.2 .727 1955 Unknown [id number] [id number] .727 1955 Unknown [id number] 2.16.840.1.096571.3.579.2 .727 1955 Unknown [id number] 2.16.840.1.807383.3.579.2 .174 1955 Unknown [id number] [id number] .174 1955 Unknown [id number] 2.16.840.1.068323.3.579.2 .174 1955 Unknown [id number] [id number] .174 1955 Unknown [id number] [id number] .174 Unknown [id number] .531 Social History Date Type Detail Facility Start: 04-11-2019 End: 08-28-2024 Tobacco smoking status NHIS Former smoker [facility] Start: 06-19-1973 End: 10-11-1982 History of tobacco use Current smoker [place] Start: 04-11-2019 End: 08-28-2024 Cigarettes smoked current (pack per day) - Reported [place] Start: 04-11-2019 End: 10-14-2024 Tobacco use and exposure Never used [place] Start: 04-11-2019 End: 12-03-2024 Alcohol intake Current non-drinker of alcohol (finding) [facility] [email or web address] Phone: Start: 1955 Sex Assigned At Not on file M [facility] [email or web address] Phone: Start: 03-23-2021 End: 09-20-2022 History SDOH Financial 4 [facility]: Start: 03-23-2021 End: 09-20-2022 History SDOH Food Worry 1 [facility] Work Phone: Start: 03-23-2021 History SDOH Transpo rt Med 2 [facility] [employer] Work Phone: Start: 06-19-1973 End: 10-11-1982 History of tobacco use Cigarette Smoker [facility] Work Phone: Start: 09-29-2022 History SDOH Alcohol Std Drinks 0 [employer] Work Phone: Start: 07-08-2020 End: 09-30-2024 Tobacco smoking status Never smoked tobacco (finding) [facility] Tobacco smoking status Never [facility] Start: 10-09-2023 End: 08-28-2024 Sex Assigned At Male [facility] How often to you hav e a drink containing alcohol? Never [facility] How hard is it for y ou to pay for the very basics like food, housing, medical care, and heating Not very hard [facility] (I/We) worried [facility]our[facility] food would run out before (I/we) got money to buy more. Never true [facility] At any time in the p ast 12 months, were you homeless or living in custodial [including now]? No [employer] [facility] Start: 07-11-2024 End: 08-28-2024 Alcoholic beverage intake Not Asked [facility] Start: 1955 Sex assigned at Male N [facility] Start: 08-20-2024 Gender identity Identifies as male gender (finding) [facility] Functional Status Date Assessment Result Facility 09-30-2024 Functional Status N/A [facility] 06-03-2024 Functional Status N/A [facility] 12-19-2022 Functional Status N/A [facility] Clinical Notes 12-13-2021 to 11-28-2024 Olivia Ledesma MD - 11/28/2024 11:12 AM Olivia Iraheta MD - 11/28/2024 12:00 AM Olivia Iraheta MD - 10/09/2024 10:15 AM Marquita Zhao RN - 10/09/2024 10:09 AM EST Note Date & Type Note Facility 11-28-2024 Note HNO ID: [id number] Author: Olivia LEDESMA MD Service: ? Author Type: Physician Type: Progress Notes Filed: 12/05/2024 11:30 Note Text: UNIVERSAL PROTOCOL / SAFETY CHECKLIST Procedure to be Performed: Prostate volume study Sign In: A Moment of CARE was completed. Personnel directly involved with the procedure wore the appropriate PPE (Personal Protective Equipment). Patient/Surrogate Stated/Verified: PATIENT VERIFIED(optional for EMERGENT procedures): Patient name, Date of , Relevant allergies, and The intended procedure Time Out Communication: Intended patient and procedure match the source documents. Consent documented and matches the intended procedure. Sign Out: SIGN OUT (optional for EMERGENT procedures): No specimen collected. All instruments, equipment, possible retained foreign bodies accounted for. Olivia Ledesma MD [facility] 11-28-2024 History of Present illness Narrative UNIVERSAL PROTOCOL / SAFETY CHECKLIST Procedure to be Performed: Prostate volume study Sign In: A Moment of CARE was completed. Personnel directly involved with the procedure wore the appropriate PPE (Personal Protective Equipment). Patient/Surrogate Stated/Verified: PATIENT VERIFIED(optional for EMERGENT procedures): Patient name, Date of , Relevant allergies, and The intended procedure Time Out Communication: Intended patient and procedure match the source documents. Consent documented and matches the intended procedure. Sign Out: SIGN OUT (optional for EMERGENT procedures): No specimen collected. All instruments, equipment, possible retained foreign bodies accounted for. Olivia Ledesma MD documented in this encounter [facility] 11-28-2024 History of Present illness Narrative GILBERTO NDIAYE [id number] 11/28/2024 [facility] Department of Radiation Oncology [facility] RADIATION ONCOLOGY SIMULATION NOTE DATE OF SIMULATION: 11/28/2024 MACHINE: [employer] Focus 500 Diagnosis: 185 (Prostate Gland) AREA:Prostate PATIENT POSITION: Supine CONTRAST: None PROTOCOL: None CONCURRENT THERAPY: None FIXATION DEVICE: UTS Stabilization device by [employer]. PROCEDURE: Patient was simulated in exaggerated dorsal lithotomy position. Serial images of the prostate were acquired using TRUS and reconstructed in 3D space. These images were imported into [employer] Prostate planning system where a plan was generated. ASSESSMENT/PLAN: Patient tolerated simulation procedure well. Electronically Signed German Ledesma M.D. / JOSEFA 53:33 PM documented in this encounter [facility] 11-28-2024 Note HNO ID: [id number] Author: Olivia LEDESMA MD Service: ? Author Type: Physician Type: Progress Notes Filed: 12/05/2024 15:33 Note Text: GILBERTO NDIAYE [id number] 11/28/2024 [facility] Department of Radiation Oncology [facility] RADIATION ONCOLOGY SIMULATION NOTE DATE OF SIMULATION: 11/28/2024 MACHINE: [email or web address] ([employer]) Focus 500 Diagnosis: 185 (Prostate Gland) AREA:Prostate PATIENT POSITION: Supine CONTRAST: None PROTOCOL: None CONCURRENT THERAPY: None FIXATION DEVICE: UTS Stabilization device by [employer]. PROCEDURE: Patient was simulated in exaggerated dorsal lithotomy position. Serial images of the prostate were acquired using TRUS and reconstructed in 3D space. These images were imported into [employer] Prostate planning system where a plan was generated. ASSESSMENT/PLAN: Patient tolerated simulation procedure well. Electronically Signed German Ledesma M.D. / JOSEFA 53:33 PM [facility] 10-09-2024 History of Present illness Narrative Images from the original note were not included. Radiation Oncology - Follow Up Note PATIENT NAME: Gilberto Ndiaye PATIENT DIAGNOSIS: Prostate cancer, with prior brachytherapy, June 2013 INTERVAL HISTORY: The patient is in today for further follow-up. Patient underwent biopsy 09/13/2024 with the finding of Jupiter 8 (4+4) and Jupiter 7 (4+3) adenocarcinoma from multiple cores within the right cores submitted. No evidence of disease within the left aspect of the prostate. He underwent prostate MRI on 08/21/2024 which demonstrated: IMPRESSION: 1. Right mid/base peripheral zone 0.7 cm lesion which is suspicious for clinically significant prostate cancer. Mild bulging of the capsule, equivocal for extraprostatic extension. No definite neurovascular bundle or seminal vesicle involvement. PI-RADS 4. 2. Diffusely T2 hypointense appearance of the prostate gland, in keeping with post treatment change. 3. Prostate volume of approximately 21 cc. PSA HISTORY: PSA (ng/mL) Date Value 05/12/2014 0.80 PSA. (no units) Date Value 10/01/2024 2.10 08/18/2016 0.19 01/12/2016 0.17 2014 0.59 He underwent further evaluation with PSMA PET on 07/07/2024, findings: IMPRESSION: HEAD/NECK: * No PSMA expressing neoplastic process. CHEST: * No PSMA expressing neoplastic process. ABDOMENS/PELVIS: * Focal PSMA uptake in the right posterior peripheral zone of the prostate, suspicious for recurrent tumor * Focal PSMA uptake in the medial right hepatic lobe, indeterminate. Consider correlation with liver MRI. MUSCULOSKELETAL: * No PSMA expressing neoplastic process. ALLERGIES: ALLERGIES No Known Allergies MEDICATIONS: leuprolide acetate (LUPRON DEPOT, 6 MONTH, INTRAMUSC.) Inject intramuscularly. PERTINENT REVIEW OF SYSTEMS: Hematuria: none Dysuria: none Incontinence: none Urgency: none Catheter use: none Medications to aid urination: no - Total AUA Score: 4 Bowel movement frequency: 1-3/day Bowel movement quality: normal Blood per rectum: none PHYSICAL EXAM: 10/09/24 1008 BP: 152/82 Pulse: 65 Resp: 18 Temp: (!) 35.9 C (96.7 F) SpO2: 97% Weight: 99 kg (218 lb 4.1 oz) General Appearance: Well appearing, alert, in no acute distress, well-hydrated, well nourished.. ASSESSMENT/PLAN: Prostate cancer, Johan grade group 1 status post primary brachytherapy June 2013, with recent rising PSA and and abnormal PSMA PET within the prostate biopsy showing recurrent adenocarcinoma, Jupiter 8 (4+4). Unfortunately recent biopsy confirming recurrent disease within the right aspect of the prostate corresponding to MRI findings. Interestingly biopsies from the left aspect of the gland without evidence of involvement. Does want to pursue local treatment. We discussed potential local treatment options again including consideration of prostatectomy or other ablative measures. We also discussed potential management hormonal therapy alone. Also discussed brachytherapy or external beam (SBRT) salvage treatment. There are several single institutional studies showing efficacy and relative safety of self brachytherapy for both external beam and brachytherapy recurrences. In addition to the study showing relative safety and efficacy of brachytherapy for salvage external beam failures. I do feel that the consideration of brachytherapy is reasonable in this patient given apparent localization to right side plan, length of time from prior treatment over 10 years, and very good current related function. After long discussion patient wants to pursue brachytherapy. Patient not interested in travel to outside center for treatment or other surgical opinion/considerations. Will plan to proceed with salvage brachytherapy to the right prostate. Acute and long-term risks of salvage radiation including potential increased risk repeat radiation including potential chronic urethral issues, and potential fistula. Patient expressed an understanding of the information presented. I do feel that salvage treatment is warranted given localized presentation. Patient will return for volume study will plan to coordinate brachytherapy with Dr. Mejia. Signed by: Olivia Ledesma MD CC Dr. Mejia documented in this encounter [facility] 10-09-2024 Note HNO ID: [id number] Author: Olivia LEDESMA MD Service: ? Author Type: Physician Type: Progress Notes Filed: 10/18/2024 09:56 Note Text: Radiation Oncology - Follow Up Note PATIENT NAME: Gilberto Ndiaye PATIENT DIAGNOSIS: Prostate cancer, with prior brachytherapy, June 2013 INTERVAL HISTORY: The patient is in today for further follow-up. Patient underwent biopsy 09/13/2024 with the finding of Johan 8 (4+4) and Jupiter 7 (4+3) adenocarcinoma from multiple cores within the right cores submitted. No evidence of disease within the left aspect of the prostate. He underwent prostate MRI on 08/21/2024 which demonstrated: IMPRESSION: 1. Right mid/base peripheral zone 0.7 cm lesion which is suspicious for clinically significant prostate cancer. Mild bulging of the capsule, equivocal for extraprostatic extension. No definite neurovascular bundle or seminal vesicle involvement. PI-RADS 4. 2. Diffusely T2 hypointense appearance of the prostate gland, in keeping with post treatment change. 3. Prostate volume of approximately 21 cc. PSA HISTORY: PSA (ng/mL) Date Value 05/12/2014 0.80 PSA. (no units) Date Value 10/01/2024 2.10 08/18/2016 0.19 01/12/2016 0.17 2014 0.59 He underwent further evaluation with PSMA PET on 07/07/2024, findings: IMPRESSION: HEAD/NECK: * No PSMA expressing neoplastic process. CHEST: * No PSMA expressing neoplastic process. ABDOMENS/PELVIS: * Focal PSMA uptake in the right posterior peripheral zone of the prostate, suspicious for recurrent tumor * Focal PSMA uptake in the medial right hepatic lobe, indeterminate. Consider correlation with liver MRI. MUSCULOSKELETAL: * No PSMA expressing neoplastic process. ALLERGIES: ALLERGIES No Known Allergies MEDICATIONS: leuprolide acetate (LUPRON DEPOT, 6 MONTH, INTRAMUSC.) Inject intramuscularly. PERTINENT REVIEW OF SYSTEMS: Hematuria: none Dysuria: none Incontinence: none Urgency: none Catheter use: none Medications to aid urination: no - Total AUA Score: 4 Bowel movement frequency: 1-3/day Bowel movement quality: normal Blood per rectum: none PHYSICAL EXAM: 10/09/24 1008 BP: 152/82 Pulse: 65 Resp: 18 Temp: (!) 35.9 ?C (96.7 ?F) SpO2: 97% Weight: 99 kg (218 lb 4.1 oz) General Appearance: Well appearing, alert, in no acute distress, well-hydrated, well nourished.. ASSESSMENT/PLAN: Prostate cancer, Jupiter grade group 1 status post primary brachytherapy June 2013, with recent rising PSA and and abnormal PSMA PET within the prostate biopsy showing recurrent adenocarcinoma, Jupiter 8 (4+4). Unfortunately recent biopsy confirming recurrent disease within the right aspect of the prostate corresponding to MRI findings. Interestingly biopsies from the left aspect of the gland without evidence of involvement. Does want to pursue local treatment. We discussed potential local treatment options again including consideration of prostatectomy or other ablative measures. We also discussed potential management hormonal therapy alone. Also discussed brachytherapy or external beam (SBRT) salvage treatment. There are several single institutional studies showing efficacy and relative safety of self brachytherapy for both external beam and brachytherapy recurrences. In addition to the study showing relative safety and efficacy of brachytherapy for salvage external beam failures. I do feel that the consideration of brachytherapy is reasonable in this patient given apparent localization to right side plan, length of time from prior treatment over 10 years, and very good current related function. After long discussion patient wants to pursue brachytherapy. Patient not interested in travel to outside center for treatment or other surgical opinion/considerations. Will plan to proceed with salvage brachytherapy to the right prostate. Acute and long-term risks of salvage radiation including potential increased risk repeat radiation including potential chronic urethral issues, and potential fistula. Patient expressed an understanding of the information presented. I do feel that salvage treatment is warranted given localized presentation. Patient will return for volume study will plan to coordinate brachytherapy with Dr. Mejia. Signed by: Olivia Ledesma MD CC Dr. Mejia [facility] 10-09-2024 Nurse Note CHIDI Blackmon RN [facility] 10-09-2024 Nurse Note CHIDI Blackmon RN documented in this encounter [facility] 10-08-2024 History of Present illness Narrative Images from the original note were not included. Assessment/Plan Diagnoses and all orders for this visit: Pseudophakia - s/p CE OS (POD #1): Patient provided with post-op form. Instructed to continue drops as well as shield. Instructed to call immediately with increased pain, redness, decreased vision, questions or concerns. documented in this encounter [facility] 09-30-2024 Hospital Discharge instructions Patient Education 09/30/2024 13:59:17 Brachytherapy for Prostate Cancer, Care After Brachytherapy for Prostate Cancer, Care After The following information offers guidance on how to care for yourself after your procedure. Your health care provider may also give you more specific instructions. If you have problems or questions, contact your health care provider. What can I expect after the procedure? After the procedure, it is common to have: Urinary symptoms. These may include: ?Trouble urinating. ?Blood in the urine or semen. ?Frequent feeling of an urgent need to urinate. Constipation, nausea, or bloating and gas. Bruising, swelling, and tenderness of the area beneath the scrotum (perineum). Tiredness (fatigue). Burning or pain in the rectum. Problems getting or keeping an erection (erectile dysfunction). After the thin, flexible urinary tube (Naidu catheter)is removed, it is common to have: Burning when you urinate. This may last for up to 2 weeks after the catheter is removed. Trouble controlling when you urinate (incontinence). You may leak urine sometimes. Your ability to control when you urinate should improve as you heal. Follow these instructions at home: Eating and drinking Follow instructions from your health care provider about eating or drinking restrictions. Drink enough fluid to keep your urine pale yellow. Treatment area care Check your treatment area every day for signs of infection. Watch for: Redness, swelling, or pain. New drainage or blood. Some dried fluid or blood may be present. Warmth. Pus or a bad smell. Managing pain and swelling If directed, put ice on the affected area. To do this: ?Put ice in a plastic bag. ?Place a towel between your skin and the bag. ?Leave the ice on for 20 minutes at a time, 2 3 times a day. ?Be sure to remove the ice if your skin turns bright red. If you cannot feel pain, heat, or cold, you have a greater risk of damage to the area. Try not to sit directly on the perineum. A soft cushion can help with discomfort. Activity Do not lift anything that is heavier than 10 lb (4.5 kg), or the limit that you are told, until your health care provider says that it is safe. Rest as told by your health care provider. Return to your normal activities as told by your health care provider. Ask your health care provider what activities are safe for you. Most people can return to normal activities within a few days. If you were given a sedative during the procedure, it can affect you for several hours. Do not drive or operate machinery until your health care provider says that it is safe. Follow instructions from your health care provider about when it is safe for you to engage in sexual activity. Managing constipation Your procedure may cause constipation. To prevent or treat constipation, you may need to: Take bily-rpf-xsmingv or prescription medicines. Eat foods that are high in fiber, such as beans, whole grains, and fresh fruits and vegetables. Limit foods that are high in fat and processed sugars, such as fried or sweet foods. General instructions Take tihn-qsr-bjbqcch and prescription medicines only as told by your health care provider. Do not take baths, swim, or use a hot tub until your health care provider approves. You may take a shower and wash the perineum gently. Do not strain to have a bowel movement. Do not use any products that contain nicotine or tobacco. These products include cigarettes, chewing tobacco, and vaping devices, such as e-cigarettes. If you need help quitting, ask your health care provider. If you have permanent, low-dose brachytherapy implants: ?Limit close contact with children and women for 2 months or as told by your health care provider. This is important because of the active radiation in your prostate. ?You may set off radioactive sensors, such as at airport screenings. Ask your health care provider for a document that explains your treatment. ?You may be told to use a condom during sex for the first 2 months after low-dose brachytherapy. In rare cases, a seed can move and come out in semen. A condom keeps it from going into your partner. Keep all follow-up visits because you may need more treatment. Contact a health care provider if you: Have a fever or chills. Have any of these signs of infection in the treatment area: ?Redness, swelling, or pain that is new or gets worse. ?Fluid or blood. ?Warmth. ?Pus or a bad smell. Have no bowel movements for 3 4 days after the procedure. Have diarrhea for 3 4 days after the procedure. Develop any new symptoms, such as problems passing urine or erectile dysfunction. Have pain in your abdomen. Have more blood in your urine, have urine that is cloudy or smells bad, or have pain or burning when you urinate. Have swelling or pain in your legs. Get help right away if: You cannot urinate. You have a lot of bleeding from your rectum. You have unusual drainage coming from your rectum. You have pain in the treated area that does not go away with pain medicine or gets worse. You have severe nausea or vomiting. You have trouble breathing. Summary Talk with your health care provider about your risk of brachytherapy side effects, such as erectile dysfunction or urinary problems. If you have permanent, low-dose brachytherapy implants, limit close contact with children and women for 2 months or as told by your health care provider. You may be told to use a condom during sex for the first 2 months after low-dose brachytherapy. Keep all follow-up visits because you may need more treatment. This information is not intended to replace advice given to you by your health care provider. Make sure you discuss any questions you have with your health care provider. Document Revised: 02/09/2022 Document Reviewed: 02/09/2022 [employer] Patient Education 2023 [employer]. 09/30/2024 13:59:16 Brachytherapy for Prostate Cancer Brachytherapy for Prostate Cancer Brachytherapy for prostate cancer is a type of internal radiation treatment that involves placing a source of radiation right inside the prostate gland. This allows the delivery of a higher dose of radiation than would be possible with external radiation therapy treatment. There are many types of brachytherapy: Low-dose rate (LDR) therapy. This involves temporary or permanent implants of radioactive seeds or pellets that give off a low dose of radiation. ?Temporary low-dose implants are left in the prostate for 1 7 days. The radioactive material is contained within a delivery tool, which may be a needle, a small, thin tube (catheter), or another type of applicator. You will need to stay in the hospital while the delivery tool and radioactive material are in place. ?Permanent low-dose implants are left in the prostate. They slowly give off radiation for many months after they are inserted. After the radiation is gone, they just stay in the body. They do not cause any harm and are not removed. High-dose rate (HDR) therapy. This involves inserting a material that gives off a higher dose of radiation for only a few minutes. The radioactive material is often wires or ribbons contained within a delivery tool (needle, applicator, or catheter). The delivery tool is removed after treatment, and no radioactive material is left in the prostate. In brachytherapy, the radiation does not travel far from the prostate, so healthy tissues around the prostate receive only a small dose of radiation. This helps to protect those tissues from injury. In some cases, brachytherapy may be given along with external beam radiation. Tell a health care provider about: Any allergies you have. All medicines you are taking, including vitamins, herbs, eye drops, creams, and tgpy-fpx-jljaigh medicines. Any problems you or family members have had with anesthetic medicines. Any bleeding problems you have. Any surgeries you have had. Any medical conditions you have. Any prostate infections you have had. What are the risks? Generally, this is a safe procedure. However, problems may occur, including: Inflammation of the rectum. Problems getting or keeping an erection (erectile dysfunction). Inability to control when you urinate or have bowel movements (incontinence). Damage to nearby structures or organs. Diarrhea. Bleeding. What happens before the procedure? Staying hydrated Follow instructions from your health care provider about hydration, which may include: Up to 2 hours before the procedure you may continue to drink clear liquids, such as water, clear fruit juice, black coffee, and plain tea. Eating and drinking restrictions Follow instructions from your health care provider about eating and drinking, which may include: 8 hours before the procedure stop eating heavy meals or foods, such as meat, fried foods, or fatty foods. 6 hours before the procedure stop eating light meals or foods, such as toast or cereal. 6 hours before the procedure stop drinking milk or drinks that contain milk. 2 hours before the procedure stop drinking clear liquids. Medicines Ask your health care provider about: ?Changing or stopping your regular medicines. This is especially important if you are taking diabetes medicines or blood thinners. ?Taking medicines such as aspirin and ibuprofen. These medicines can thin your blood. Do not take these medicines unless your health care provider tells you to take them. ?Taking xbci-rda-weetzzo medicines, vitamins, herbs, and supplements. Follow your health care provider's instructions about cleaning out your bowels. Surgery safety Ask your health care provider: How your surgery site will be marked. What steps will be taken to help prevent infection. These may include: ?Removing hair at the procedure site. ?Washing skin with a germ-killing soap. ?Taking antibiotic medicine before and after the procedure. General instructions You may have exams or testing done before or after the procedure. Blood or urine samples may be taken. You may need imaging tests, such as a CT scan or an MRI. Do not use any products that contain nicotine or tobacco for at least 4 weeks before the procedure. This includes cigarettes, chewing tobacco, and vaping devices, such as e-cigarettes. If you need help quitting, ask your health care provider. Plan to have a responsible adult take you home from the hospital or clinic. Plan to have a responsible adult care for you for the time you are told after you leave the hospital or clinic. What happens during the procedure? An IV will be put into one of the veins in your arm or hand. You may be given: ?A medicine to help you relax (sedative). ?A medicine to numb the area (local anesthetic). ?A medicine to make you fall asleep (general anesthetic). A thin, flexible tube (Naidu catheter) might be put into your penis, through your urethra, and into your bladder to drain your urine. Your surgeon will insert the radioactive material. The method used will depend on whether you are receiving temporary or permanent brachytherapy. Temporary low-dose or high-dose brachytherapy A delivery tool (needle, applicator, or catheter) will be put into the prostate. It will be inserted through a body cavity, like the rectum, or through the perineum, which is the area beneath the scrotum. An X-ray, ultrasound, MRI, or CT scan will be used to guide the delivery tool into the prostate. Radioactive seeds, pellets, wires, or ribbons will be fed through the delivery tool. If the high-dose method is used: ?The radioactive material will be left in for a few minutes and then removed. ?When the treatment is finished, the delivery tool will be removed. If the low-dose method is used: ?The delivery tool containing the radioactive material will stay in place for 1 7 days. ?You will stay in the hospital while the implant is in place. ?When the treatment is finished, the radioactive material and delivery tool will be removed. Permanent low-dose brachytherapy A tube or needle will be used to inject small, radioactive seeds or pellets into your prostate. The needle or tube will be removed, leaving the seeds or pellets in the prostate. The procedure may vary among health care providers and hospitals. What happens after the procedure? Your blood pressure, heart rate, breathing rate, and blood oxygen level will be monitored until you leave the hospital or clinic. If you were given a sedative during the procedure, it can affect you for several hours. Do not drive or operate machinery until your health care provider says that it is safe. If radiation seeds were left in your prostate, be sure you understand any safety precautions you are to follow at home. Summary Brachytherapy for prostate cancer is a type of radiation treatment that involves placing a source of radiation right inside the prostate gland. There are several types of brachytherapy for prostate cancer: low-dose temporary treatment, low-dose permanent treatment, and high-dose temporary treatment. The amount of time that the source of radiation is left in your prostate will depend on the type of brachytherapy you are having. This information is not intended to replace advice given to you by your health care provider. Make sure you discuss any questions you have with your health care provider. Document Revised: 02/09/2022 Document Reviewed: 02/09/2022 simfy Patient Education 2023 [employer]. Follow Up Care 09/02/2024 16:15:57 With:ROBERTO JOHN, Myrtle Lechuga, URL Address: [facility] [address], [place] [address]- When: Unknown [facility] 09-30-2024 Note Patient Education Oncology Brachytherapy for Prostate Cancer, Care After The following information offers guidance on how to care for yourself after your procedure. Your health care provider may also give you more specific instructions. If you have problems or questions, contact your health care provider. What can I expect after the procedure? After the procedure, it is common to have: ??? Urinary symptoms. These may include: ? Trouble urinating. ? Blood in the urine or semen. ? Frequent feeling of an urgent need to urinate. ??? Constipation, nausea, or bloating and gas. ??? Bruising, swelling, and tenderness of the area beneath the scrotum (perineum). ??? Tiredness (fatigue). ??? Burning or pain in the rectum. ??? Problems getting or keeping an erection (erectile dysfunction). After the thin, flexible urinary tube (Naidu catheter)is removed, it is common to have: ??? Burning when you urinate. This may last for up to 2 weeks after the catheter is removed. ??? Trouble controlling when you urinate (incontinence). You may leak urine sometimes. Your ability to control when you urinate should improve as you heal. Follow these instructions at home: Eating and drinking ??? Follow instructions from your health care provider about eating or drinking restrictions. ??? Drink enough fluid to keep your urine pale yellow. Treatment area care Check your treatment area every day for signs of infection. Watch for: ??? Redness, swelling, or pain. ??? New drainage or blood. Some dried fluid or blood may be present. ??? Warmth. ??? Pus or a bad smell. Managing pain and swelling ??? If directed, put ice on the affected area. To do this: ? Put ice in a plastic bag. ? Place a towel between your skin and the bag. ? Leave the ice on for 20 minutes at a time, 2?3 times a day. ? Be sure to remove the ice if your skin turns bright red. If you cannot feel pain, heat, or cold, you have a greater risk of damage to the area. ??? Try not to sit directly on the perineum. A soft cushion can help with discomfort. Activity ??? Do not lift anything that is heavier than 10 lb (4.5 kg), or the limit that you are told, until your health care provider says that it is safe. ??? Rest as told by your health care provider. ??? Return to your normal activities as told by your health care provider. Ask your health care provider what activities are safe for you. Most people can return to normal activities within a few days. ??? If you were given a sedative during the procedure, it can affect you for several hours. Do not drive or operate machinery until your health care provider says that it is safe. ??? Follow instructions from your health care provider about when it is safe for you to engage in sexual activity. Managing constipation Your procedure may cause constipation. To prevent or treat constipation, you may need to: ??? Take uurj-jml-imgzopx or prescription medicines. ??? Eat foods that are high in fiber, such as beans, whole grains, and fresh fruits and vegetables. ??? Limit foods that are high in fat and processed sugars, such as fried or sweet foods. General instructions ??? Take yjwa-twa-kpizgks and prescription medicines only as told by your health care provider. ??? Do not take baths, swim, or use a hot tub until your health care provider approves. You may take a shower and wash the perineum gently. ??? Do not strain to have a bowel movement. ??? Do not use any products that contain nicotine or tobacco. These products include cigarettes, chewing tobacco, and vaping devices, such as e-cigarettes. If you need help quitting, ask your health care provider. ??? If you have permanent, low-dose brachytherapy implants: ? Limit close contact with children and women for 2 months or as told by your health care provider. This is important because of the active radiation in your prostate. ? You may set off radioactive sensors, such as at airport screenings. Ask your health care provider for a document that explains your treatment. ? You may be told to use a condom during sex for the first 2 months after low-dose brachytherapy. In rare cases, a seed can move and come out in semen. A condom keeps it from going into your partner. ??? Keep all follow-up visits because you may need more treatment. Contact a health care provider if you: ??? Have a fever or chills. ??? Have any of these signs of infection in the treatment area: ? Redness, swelling, or pain that is new or gets worse. ? Fluid or blood. ? Warmth. ? Pus or a bad smell. ??? Have no bowel movements for 3?4 days after the procedure. ??? Have diarrhea for 3?4 days after the procedure. ??? Develop any new symptoms, such as problems passing urine or erectile dysfunction. ??? Have pain in your abdomen. ??? Have more blood in your urine, have urine that is cloudy or smells bad, or have pain o (more content not included)... [facility] 08-28-2024 History of Present illness Narrative Images from the original note were not included. Radiation Oncology - Follow Up Note PATIENT NAME: Gilberto Ndiaye PATIENT DIAGNOSIS: Prostate cancer, with prior brachytherapy, June 2013 INTERVAL HISTORY: The patient is in today for further follow-up regarding rising PSA. He underwent prostate MRI on 08/21/2024 which demonstrated: IMPRESSION: 1. Right mid/base peripheral zone 0.7 cm lesion which is suspicious for clinically significant prostate cancer. Mild bulging of the capsule, equivocal for extraprostatic extension. No definite neurovascular bundle or seminal vesicle involvement. PI-RADS 4. 2. Diffusely T2 hypointense appearance of the prostate gland, in keeping with post treatment change. 3. Prostate volume of approximately 21 cc. PSA HISTORY: PSA (ng/mL) Date Value 05/12/2014 0.80 PSA. (no units) Date Value 08/18/2016 0.19 01/12/2016 0.17 2014 0.59 He underwent further evaluation with PSMA PET on 07/07/2024, findings: IMPRESSION: HEAD/NECK: * No PSMA expressing neoplastic process. CHEST: * No PSMA expressing neoplastic process. ABDOMENS/PELVIS: * Focal PSMA uptake in the right posterior peripheral zone of the prostate, suspicious for recurrent tumor * Focal PSMA uptake in the medial right hepatic lobe, indeterminate. Consider correlation with liver MRI. MUSCULOSKELETAL: * No PSMA expressing neoplastic process. ALLERGIES: ALLERGIES No Known Allergies MEDICATIONS: No prescriptions on file. PERTINENT REVIEW OF SYSTEMS: Hematuria: none Dysuria: none Incontinence: none Urgency: none Catheter use: none Medications to aid urination: no - Total AUA Score: Bowel movement frequency: 1-3/day Bowel movement quality: normal Blood per rectum: none PHYSICAL EXAM: 08/28/24 1147 BP: 147/80 Pulse: (!) 53 Resp: 16 Temp: 36.7 C (98.1 F) TempSrc: Temporal SpO2: 99% Weight: 98.6 kg (217 lb 6 oz) General Appearance: Well appearing, alert, in no acute distress, well-hydrated, well nourished.. Skin: Skin color, texture, turgor normal, no suspicious rashes or lesions. Abdomen: Normal abdominal exam, Abdomen soft, non-tender. No masses, organomegaly. Genitalia: Normal. Rectal: normal exam. Lymph Nodes: No cervical lymphadenopathy, No supraclavicular lymphadenopathy, No axillary lymphadenopathy. and No inguinal lymphadenopathy.. ASSESSMENT/PLAN: Prostate cancer, Johan grade group 1 status post primary brachytherapy June 2013, with recent rising PSA and and abnormal PSMA PET within the prostate. MRI findings correlate with PET showing focal local abnormality right peripheral zone prostate. No extra prostatic findings on MRI. Options of management given rising PSA and radiologic findings suggesting local recurrence. Discussed continued observation versus initiating ADT versus local ablative therapy with or without addition of ADT. Local ablative options would include HIFU/cryo/possible repeat brachytherapy. Patient with need to see specialist to see if he would be a candidate for HIFU prior etc. I do feel of biopsy would be warranted as would help confirm radiographic findings as well as help in determining grade which may influence addition of ADT. Patient has further follow-up with Dr. Mejia. Will discuss further with him. Signed by: MD GEOVANY Aquino Dr. documented in this encounter [facility] 08-28-2024 Note HNO ID: [id number] Author: Olivia LEDESMA MD Service: ? Author Type: Physician Type: Progress Notes Filed: 08/30/2024 10:28 Note Text: Radiation Oncology - Follow Up Note PATIENT NAME: Gilberto Ndiaye PATIENT DIAGNOSIS: Prostate cancer, with prior brachytherapy, June 2013 INTERVAL HISTORY: The patient is in today for further follow-up regarding rising PSA. He underwent prostate MRI on 08/21/2024 which demonstrated: IMPRESSION: 1. Right mid/base peripheral zone 0.7 cm lesion which is suspicious for clinically significant prostate cancer. Mild bulging of the capsule, equivocal for extraprostatic extension. No definite neurovascular bundle or seminal vesicle involvement. PI-RADS 4. 2. Diffusely T2 hypointense appearance of the prostate gland, in keeping with post treatment change. 3. Prostate volume of approximately 21 cc. PSA HISTORY: PSA (ng/mL) Date Value 05/12/2014 0.80 PSA. (no units) Date Value 08/18/2016 0.19 01/12/2016 0.17 2014 0.59 He underwent further evaluation with PSMA PET on 07/07/2024, findings: IMPRESSION: HEAD/NECK: * No PSMA expressing neoplastic process. CHEST: * No PSMA expressing neoplastic process. ABDOMENS/PELVIS: * Focal PSMA uptake in the right posterior peripheral zone of the prostate, suspicious for recurrent tumor * Focal PSMA uptake in the medial right hepatic lobe, indeterminate. Consider correlation with liver MRI. MUSCULOSKELETAL: * No PSMA expressing neoplastic process. ALLERGIES: ALLERGIES No Known Allergies MEDICATIONS: No prescriptions on file. PERTINENT REVIEW OF SYSTEMS: Hematuria: none Dysuria: none Incontinence: none Urgency: none Catheter use: none Medications to aid urination: no - Total AUA Score: Bowel movement frequency: 1-3/day Bowel movement quality: normal Blood per rectum: none PHYSICAL EXAM: 08/28/24 1147 BP: 147/80 Pulse: (!) 53 Resp: 16 Temp: 36.7 ?C (98.1 ?F) TempSrc: Temporal SpO2: 99% Weight: 98.6 kg (217 lb 6 oz) General Appearance: Well appearing, alert, in no acute distress, well-hydrated, well nourished.. Skin: Skin color, texture, turgor normal, no suspicious rashes or lesions. Abdomen: Normal abdominal exam, Abdomen soft, non-tender. No masses, organomegaly. Genitalia: Normal. Rectal: normal exam. Lymph Nodes: No cervical lymphadenopathy, No supraclavicular lymphadenopathy, No axillary lymphadenopathy. and No inguinal lymphadenopathy.. ASSESSMENT/PLAN: Prostate cancer, Jupiter grade group 1 status post primary brachytherapy June 2013, with recent rising PSA and and abnormal PSMA PET within the prostate. MRI findings correlate with PET showing focal local abnormality right peripheral zone prostate. No extra prostatic findings on MRI. Options of management given rising PSA and radiologic findings suggesting local recurrence. Discussed continued observation versus initiating ADT versus local ablative therapy with or without addition of ADT. Local ablative options would include HIFU/cryo/possible repeat brachytherapy. Patient with need to see specialist to see if he would be a candidate for HIFU prior etc. I do feel of biopsy would be warranted as would help confirm radiographic findings as well as help in determining grade which may influence addition of ADT. Patient has further follow-up with Dr. Mejia. Will discuss further with him. Signed by: Olivia Ledesma MD CC Dr. Mejia [facility] 08-27-2024 History of Present illness Narrative Images from the original note were not included. Subjective Patient ID: Hong Ndiaye is a 68 y.o. male. Chief Complaint Cataract HPI Cataract In left eye. Associated symptoms include blurred vision, glare and a need for brighter lights. Frequency is constant. Context: distance vision, mid-range vision, night driving and dim lighting. Since onset it is gradually worsening. Affected activities include night driving, watching TV and daily activities. Comments Cataract extraction (CE) eval for pt referred by Dr Ng. Pt wears contact lens (CL) left eye (OS) (not wearing today). Not using any drops, No Pm or Defib No latex allergy *Previously on flomax* Last edited by MADHURI BRITO on 08/27/2024 1:07 PM. Current Outpatient Medications (Ophthalmic Agents) Medication Sig Dispense Refill ketorolac (Acular) 0.5 % ophthalmic solution Administer 1 drop into affected eye(s) in the morning and 1 drop before bedtime. 5 mL 1 ofloxacin (Ocuflox) 0.3 % ophthalmic solution Administer 1 drop into the right eye 5 (five) times a day for 1 day Starting 1 day before surgery, continue after surgery as directed 5 mL 1 prednisoLONE acetate (Pred-Forte) 1 % ophthalmic suspension Administer 1 drop into both eyes in the morning and 1 drop at noon and 1 drop in the evening and 1 drop before bedtime. Do all this for 14 days. 5 mL 1 No current facility-administered medications for this visit. (Ophthalmic Agents) Current Outpatient Medications (Other) Medication Sig Dispense Refill ibuprofen 200 MG tablet Take 200 mg by mouth No current facility-administered medications for this visit. (Other) Past Medical History: Diagnosis Date Asymptomatic microscopic hematuria Cataract Dry eyes Herpes zoster ophthalmicus of left eye 2018 History of kidney stones History of prostate cancer Knee osteoarthritis Medial meniscus tear No Known Allergies Review of Systems Constitutional: Negative. HENT: Negative. Eyes: Negative. Respiratory: Negative. Cardiovascular: Negative. Gastrointestinal: Negative. Genitourinary: Negative. Musculoskeletal: Negative. Skin: Negative. Neurological: Negative. Psychiatric/Behavioral: Negative. Hematological: Negative. Endocrine: Negative. Allergic/Immunologic: Negative. Objective Base Eye Exam Visual Acuity (Snellen - Linear) Right Left Dist sc 20/50 20/70 Tonometry (Applanation, 1:21 PM) Right Left Pressure 16 16 Pupils Pupils Right PERRL Left PERRL Visual Galarza Left Right Full Full Extraocular Movement Right Left Full Full Neuro/Psych Oriented x3: Yes Dilation Both eyes: 1.0% Mydriacyl @ 1:08 PM Additional Tests Glare Testing High Right 20/200 Left 20/400 Slit Lamp and Fundus Exam External Exam Right Left External Rosacea Rosacea Slit Lamp Exam Right Left Lids/Lashes Blepharitis, Dermatochalasis - upper lid Blepharitis, Dermatochalasis - upper lid, Ptosis Conjunctiva/Sclera White and quiet White and quiet Cornea Decreased tear film Decreased tear film Anterior Chamber Deep and quiet Deep and quiet Iris Round and reactive Round and reactive Lens 2+ Nuclear sclerosis, 2+ Cortical cataract 2+ Nuclear sclerosis, 2+ Cortical cataract Anterior Vitreous Normal Normal Fundus Exam Right Left Disc Normal Normal Macula Normal Normal Vessels Normal Normal Periphery Normal Normal Refraction Manifest Refraction Sphere Cylinder Sharon Right -0.75 -0.50 161 Left -1.25 -0.75 170 Final Rx Sphere Cylinder Sharon Dist VA Right -0.50 -0.50 165 20/30 Left -1.00 -0.75 170 20/40 Expiration Date: 08/27/2025 Assessment/Plan Age-related nuclear cataract of both eyes - Visually Significant Cataract, OU: I discussed the risks, benefits, alternatives, and expectations of cataract surgery. A complete ophthalmic exam was performed and it was determined that the cataracts were a primary source of vision decline, affecting activities of daily living, necessitating removal. Limited vision post-surgery may occur with pre-existing conditions affecting other areas of the eye or the brain was explained and the patient displayed an understanding. The overall objective is to improve ADLs, not eliminate glasses or restore vision to 20/20. Tests were reviewed - the different lens options were explained including the [id number] fees for any upgrades. Intraocular lens (IOL) selection may be altered either prior to or during the procedure based on the doctor's discretion including reverting to a traditional intraocular lens (IOL). They understood that there will exist the potential of glasses prescription need post surgery for near, distance or possibly both. The patient stated a full understanding and a desire to proceed with the procedure. The patient received cataract measurements and had any additional questions answered. - A complete exam was performed including a physical exam: General: AAOx3 and NAD, Lungs: Clear, Heart: RRR, Abdomen: S/NT/ND, Extremities: no pitting edema. - Coordination of care will be shared with Dr. Ng. Cataract Surgery for OS will take place - 10/07 and OD - TBD by Dr. Ng and Senthil. documented in this encounter [facility] 08-21-2024 Miscellaneous Notes Radiology Service Progress Note PATIENT NAME: Gilberto Ndiaye DATE OF SERVICE: August 21, 2024 TIME: 3:23 PM PATIENT IDENTITY VERIFICATION COMPLETED USING TWO (2) IDENTIFIERS: Name and Date of confirmed by patient verbally and Name and Date of confirmed by identification band. FALL SCREENING: Has the patient had 2 falls in the last year or 1 fall with injury or currently using an Ambulatory Assistive Device (Walker, Cane, Wheelchair, Crutches, etc.)? No PATIENT GENDER DATA: Male PATIENT RELEVANT IMPLANT DATA REVIEWED: Yes PATIENT PRESENTS WITH AN IMPLANTABLE OR ATTACHED HEALTH TEACHER: No RADIOLOGY DEPARTMENT: MR; Exam(s) Completed: Body: Prostate PERIPHERAL IV DATA: Site assessment: Clean,Dry and Intact, Site disposition Discontinued SIGNED BY: ZAHEER Bhagat Marie I Brown, MRI Tech August 21, 2024 3:23 PM documented in this encounter [facility] 08-21-2024 Nurse Note Radiology Service Progress Note DATE OF SERVICE: August 21, 2024 TIME: 2:56 PM PATIENT WEIGHT: 215LBS PATIENT IDENTITY VERIFICATION COMPLETED USING TWO (2) STANDARD IDENTIFIERS: Name and Date of confirmed by patient verbally. FALL SCREENING: Has the patient had 2 falls in the last year or 1 fall with injury or currently using an Ambulatory Assistive Device (Walker, Cane, Wheelchair, Crutches, etc.)? No PATIENT GENDER DATA: Male ALLERGIES: Reviewed and unchanged CONTRAST ALLERGY: No EXAM: MRI - CONTRAST TYPE: GROUP II IV SITE: Ambulatory: A peripheral IV was started in the Left forearm with a Angio cath: 20 gauge.2 inch IV SITE APPEARANCE: Clean,Dry and Intact SIGNATURE: Sasha Khoury RN PATIENT NAME: Gilberto Ndiaye DATE: August 21, 2024 TIME: 2:56 PM [facility] 08-21-2024 Nurse Note Radiology Service Progress Note DATE OF SERVICE: August 21, 2024 TIME: 2:56 PM PATIENT WEIGHT: 215LBS PATIENT IDENTITY VERIFICATION COMPLETED USING TWO (2) STANDARD IDENTIFIERS: Name and Date of confirmed by patient verbally. FALL SCREENING: Has the patient had 2 falls in the last year or 1 fall with injury or currently using an Ambulatory Assistive Device (Walker, Cane, Wheelchair, Crutches, etc.)? No PATIENT GENDER DATA: Male ALLERGIES: Reviewed and unchanged CONTRAST ALLERGY: No EXAM: MRI - CONTRAST TYPE: GROUP II IV SITE: Ambulatory: A peripheral IV was started in the Left forearm with a Angio cath: 20 gauge.2 inch IV SITE APPEARANCE: Clean,Dry and Intact SIGNATURE: Sasha Khoury RN PATIENT NAME: Gilberto Ndiaye DATE: August 21, 2024 TIME: 2:56 PM documented in this encounter [facility] 08-21-2024 Progress note Formatting of t his note might be different from the original. Radiology Service Progress Note PATIENT NAME: Gilberto Ndiaye DATE OF SERVICE: August 21, 2024 TIME: 3:23 PM PATIENT IDENTITY VERIFICATION COMPLETED USING TWO (2) IDENTIFIERS: Name and Date of confirmed by patient verbally and Name and Date of confirmed by identification band. FALL SCREENING: Has the patient had 2 falls in the last year or 1 fall with injury or currently using an Ambulatory Assistive Device (Walker, Cane, Wheelchair, Crutches, etc.)? No PATIENT GENDER DATA: Male PATIENT RELEVANT IMPLANT DATA REVIEWED: Yes PATIENT PRESENTS WITH AN IMPLANTABLE OR ATTACHED HEALTH TEACHER: No RADIOLOGY DEPARTMENT: MR; Exam(s) Completed: Body: Prostate PERIPHERAL IV DATA: Site assessment: Clean,Dry and Intact, Site disposition Discontinued SIGNED BY: ZAHEER Bhagat Marie I Brown, MRI Tech August 21, 2024 3:23 PM [facility] 07-11-2024 Nurse Note CHIDI Blackmon RN [facility] 07-11-2024 Nurse Note AUA 4 Marquita Blackmon RN documented in this encounter [facility] 07-11-2024 History of Present illness Narrative Images from the original note were not included. Radiation Oncology - Follow Up Note PATIENT NAME: Gilberto Ndiaye PATIENT DIAGNOSIS: Prostate cancer, with prior brachytherapy, June 2019 INTERVAL HISTORY: The patient is in today for concern for rising PSA. PSA values noted below. PSA HISTORY: PSA (ng/mL) Date Value 05/12/2014 0.80 PSA. (no units) Date Value 08/18/2016 0.19 01/12/2016 0.17 2014 0.59 He underwent further evaluation with PSMA PET on 07/07/2024, findings: IMPRESSION: HEAD/NECK: * No PSMA expressing neoplastic process. CHEST: * No PSMA expressing neoplastic process. ABDOMENS/PELVIS: * Focal PSMA uptake in the right posterior peripheral zone of the prostate, suspicious for recurrent tumor * Focal PSMA uptake in the medial right hepatic lobe, indeterminate. Consider correlation with liver MRI. MUSCULOSKELETAL: * No PSMA expressing neoplastic process. ALLERGIES: ALLERGIES No Known Allergies MEDICATIONS: No prescriptions on file. PERTINENT REVIEW OF SYSTEMS: Hematuria: none Dysuria: none Incontinence: none Urgency: none Catheter use: none Medications to aid urination: no - Total AUA Score: Bowel movement frequency: 1-3/day Bowel movement quality: normal Blood per rectum: none PHYSICAL EXAM: 07/11/24 1351 BP: 150/89 Pulse: 66 Resp: 18 Temp: 36.1 C (97 F) SpO2: 97% Weight: 99 kg (218 lb 4.1 oz) General Appearance: Well appearing, alert, in no acute distress, well-hydrated, well nourished.. Skin: Skin color, texture, turgor normal, no suspicious rashes or lesions. Abdomen: Normal abdominal exam, Abdomen soft, non-tender. No masses, organomegaly. Genitalia: Normal. Rectal: normal exam. Lymph Nodes: No cervical lymphadenopathy, No supraclavicular lymphadenopathy, No axillary lymphadenopathy. and No inguinal lymphadenopathy.. ASSESSMENT/PLAN: Prostate cancer, Johan grade group 1 status post primary brachytherapy 2018, with recent rising PSA and and abnormal PSMA PET within the prostate. In review of both PSA history and PSMA PET patient appears to have a local only recurrence within the prostate. Overall patient's performance status and health status excellent. Given this I do feel further treatment considerations are warranted. I would recommend further staging with MRI prostate. Depending on findings biopsy could be considered. Depending on findings local treatment options could include cryotherapy, HIFU, reirradiation. Non ablative options would include hormonal therapy only versus continued observation. Several studies have shown safety and good efficacy of reirradiation, though generally after external beam this can be considered after primary brachytherapy with brachytherapy as the modality. Potential risks of retreatment given prior treatment were discussed with patient and his . Will plan to discuss further once MRI results available. Signed by: Olivia Ledesma MD CC Dr. Mejia documented in this encounter [facility] 07-11-2024 Note HNO ID: [id number] Author: Olivia LEDESMA MD Service: ? Author Type: Physician Type: Progress Notes Filed: 07/16/2024 08:45 Note Text: Radiation Oncology - Follow Up Note PATIENT NAME: Gilberto Ndiaye PATIENT DIAGNOSIS: Prostate cancer, with prior brachytherapy, June 2019 INTERVAL HISTORY: The patient is in today for concern for rising PSA. PSA values noted below. PSA HISTORY: PSA (ng/mL) Date Value 05/12/2014 0.80 PSA. (no units) Date Value 08/18/2016 0.19 01/12/2016 0.17 2014 0.59 He underwent further evaluation with PSMA PET on 07/07/2024, findings: IMPRESSION: HEAD/NECK: * No PSMA expressing neoplastic process. CHEST: * No PSMA expressing neoplastic process. ABDOMENS/PELVIS: * Focal PSMA uptake in the right posterior peripheral zone of the prostate, suspicious for recurrent tumor * Focal PSMA uptake in the medial right hepatic lobe, indeterminate. Consider correlation with liver MRI. MUSCULOSKELETAL: * No PSMA expressing neoplastic process. ALLERGIES: ALLERGIES No Known Allergies MEDICATIONS: No prescriptions on file. PERTINENT REVIEW OF SYSTEMS: Hematuria: none Dysuria: none Incontinence: none Urgency: none Catheter use: none Medications to aid urination: no - Total AUA Score: Bowel movement frequency: 1-3/day Bowel movement quality: normal Blood per rectum: none PHYSICAL EXAM: 07/11/24 1351 BP: 150/89 Pulse: 66 Resp: 18 Temp: 36.1 ?C (97 ?F) SpO2: 97% Weight: 99 kg (218 lb 4.1 oz) General Appearance: Well appearing, alert, in no acute distress, well-hydrated, well nourished.. Skin: Skin color, texture, turgor normal, no suspicious rashes or lesions. Abdomen: Normal abdominal exam, Abdomen soft, non-tender. No masses, organomegaly. Genitalia: Normal. Rectal: normal exam. Lymph Nodes: No cervical lymphadenopathy, No supraclavicular lymphadenopathy, No axillary lymphadenopathy. and No inguinal lymphadenopathy.. ASSESSMENT/PLAN: Prostate cancer, [place] grade group 1 status post primary brachytherapy 2018, with recent rising PSA and and abnormal PSMA PET within the prostate. In review of both PSA history and PSMA PET patient appears to have a local only recurrence within the prostate. Overall patient's performance status and health status excellent. Given this I do feel further treatment considerations are warranted. I would recommend further staging with MRI prostate. Depending on findings biopsy could be considered. Depending on findings local treatment options could include cryotherapy, HIFU, reirradiation. Non ablative options would include hormonal therapy only versus continued observation. Several studies have shown safety and good efficacy of reirradiation, though generally after external beam this can be considered after primary brachytherapy with brachytherapy as the modality. Potential risks of retreatment given prior treatment were discussed with patient and his . Will plan to discuss further once MRI results available. Signed by: Olivia Ledesma MD CC Dr. Mejia [facility] 07-02-2024 History of Present illness Narrative RADIOLOGY SERVICE PROGRESS NOTE SERVICE DATE: 07/02/2024 SERVICE TIME: 11:31 AM PATIENT IDENTITY VERIFICATION COMPLETED USING TWO (2) STANDARD IDENTIFIERS: Name and Date of confirmed by patient verbally FALL SCREENING: Has the patient had 2 falls in the last year or 1 fall with injury or currently using an Ambulatory Assistive Device (Walker, Cane, Wheelchair, Crutches, etc.)? No PATIENT GENDER DATA: .male ALLERGIES: Reviewed and unchanged MEDICATIONS REVIEWED: Yes PATIENT RELEVANT IMPLANT DATA REVIEWED: Not Applicable PATIENT PRESENTS WITH AN IMPLANTABLE OR ATTACHED HEALTH TEACHER: No IV SITE: RT AC POST EXAM PIV STATUS: Discontinued PROCEDURE TYPE: NM INJECT: PET/CT BODY SCAN. 9.6 mCi [id number]. No other medications given.. ADMINISTRATION TIME: 1045 PATIENT DISCHARGED TO: Ambulatory patient, left NM department area. A Diagnostic radioactive procedure has taken place, with no further precautions necessary other than routine body substance precautions. More information regarding radiation safety can be found using this link: [email or web address] ic%20Nuclear%[email or web address] edures.pdf SIGNATURE: ISAIAS Celis) PATIENT NAME: Gilberto Ndiaye DATE: July 02, 2024 TIME: 11:31 AM PAGER/CONTACT #: documented in this encounter [facility] 07-02-2024 Note HNO ID: [id number] Author: MAHESH RICKS RT (R) Service: ? Author Type: Technologist Type: Progress Notes Filed: 07/02/2024 11:31 Note Text: RADIOLOGY SERVICE PROGRESS NOTE SERVICE DATE: 07/02/2024 SERVICE TIME: 11:31 AM PATIENT IDENTITY VERIFICATION COMPLETED USING TWO (2) STANDARD IDENTIFIERS: Name and Date of confirmed by patient verbally FALL SCREENING: Has the patient had 2 falls in the last year or 1 fall with injury or currently using an Ambulatory Assistive Device (Walker, Cane, Wheelchair, Crutches, etc.)? No PATIENT GENDER DATA: .male ALLERGIES: Reviewed and unchanged MEDICATIONS REVIEWED: Yes PATIENT RELEVANT IMPLANT DATA REVIEWED: Not Applicable PATIENT PRESENTS WITH AN IMPLANTABLE OR ATTACHED HEALTH TEACHER: No IV SITE: RT AC POST EXAM PIV STATUS: Discontinued PROCEDURE TYPE: NM INJECT: PET/CT BODY SCAN. 9.6 mCi [id number]. No other medications given.. ADMINISTRATION TIME: 1045 PATIENT DISCHARGED TO: Ambulatory patient, left [place] department area. A Diagnostic radioactive procedure has taken place, with no further precautions necessary other than routine body substance precautions. More information regarding radiation safety can be found using this link: [email or web address] 20Diagnostic%20Nuclear%20Medic ine%20Procedures.pdf SIGNATURE: RT Vimal(R) PATIENT NAME: Gilberto Ndiaye DATE: July 02, 2024 TIME: 11:31 AM PAGER/CONTACT #: [facility] 06-03-2024 Hospital Discharge instructions Patient Education 06/03/2024 10:06:34 Cancer Screening for Men Cancer Screening for Men A cancer screening is a test or exam that checks for cancer. Your health care provider will recommend specific cancer screenings based on your age, medical history (including risk factors), and family history of cancer. Work with your health care provider to create a cancer screening schedule that protects your health. Who should have screening? All men should be considered for screening of certain cancers, including colorectal cancer, prostate cancer, lung cancer, and skin cancer. Your health care provider may recommend screenings for other types of cancer if: You had cancer before. You have a family member with cancer. You have abnormal genes that could increase the risk of cancer. You have risk factors for certain cancers, such as current or past use of tobacco products, or being overweight. When you should be screened for cancer depends on: Your age. Your medical history and your family's medical history. Certain lifestyle factors, such as smoking or other use of tobacco products. Environmental exposure, such as to asbestos. How is screening done? Colorectal cancer All adults should have screenings starting at age 45 and continuing until age 75. Your health care provider may recommend screening before age 45. You will have tests every 1 10 years, depending on your results and the type of screening test. People at increased risk should start screening at an earlier age. Talk with your health care provider about which screening test is right for you and how often you should be screened. Colorectal cancer screening looks for cancer or for growths called polyps that often form before cancer starts. Tests to look for cancer or polyps include: Colonoscopy or flexible sigmoidoscopy. For these procedures, a flexible tube with a small camera is inserted into the rectum. CT colonography. This test uses X-rays and a contrast dye to check the colon for polyps. If a polyp is found, you may need to have a colonoscopy so the polyp can be located and removed. Tests to look for cancer in the stool (feces) include: Guaiac-based fecal occult blood test (FOBT). This test can find blood in stool. It can be done at home with a kit. Fecal immunochemical test (FIT). This test can find blood in stool. For this test, you will need to collect stool samples at home. Stool DNA test. This test looks for blood in stool and any changes in DNA that can lead to colon cancer. For this test, you will need to collect a stool sample at home and send it to a lab. Prostate cancer Prostate cancer screening for men with average risk may start at age 50. Men with risk factors may need to be screened earlier, at ages 40 45. Talk with your health care provider about whether screening is right for you and, if so, how often you should be screened. Prostate cancer screening is done with blood tests and a digital rectal exam. During this exam, a health care provider uses a gloved finger to check prostate size. You may need to be screened for prostate cancer if: You have risk factors for prostate cancer, such as being or having a close family member with prostate cancer. You have had gene changes or a genetic condition that was passed on to you from a parent (inherited). These gene changes or genetic conditions include BRCA1 or BRCA2 gene mutations or Gabriel syndrome. You have symptoms of prostate cancer, such as problems urinating or problems getting or keeping an erection (erectile dysfunction). When you have been screened for prostate cancer, future screening may be recommended based on the results of your blood tests. Lung cancer Lung cancer screening is done with a CT scan that looks for abnormal changes in the lungs. Discuss lung cancer screening with your health care provider if you are 50 80 years old and if any of the following apply to you: You currently smoke. You used to smoke heavily. You have a smoking history of 1 pack of cigarettes a day for 20 years or 2 packs a day for 10 years. You have quit smoking within the past 15 years. You may need to be screened every year if you smoke heavily or if you used to smoke. Skin cancer Skin cancer screening is done by checking the skin for unusual moles or spots and any changes in existing moles. Your health care provider should check your skin for signs of skin cancer at every physical exam. You should check your skin every month and tell your health care provider right away if anything looks unusual. Men with a xyynhs-ogkk-leoojs risk for skin cancer may want to see a esthetician/skin therapist (roof shingler) for an annual body check. What are the benefits of screening? Cancer screening is done to look for cancer in the very early stages, before it spreads and becomes harder to treat and before you would start to notice symptoms. Finding cancer early improves the chances of successful treatment. It may save your life. Where to find more information [place] [employer]: www.cancer.org Centers for Disease Control and Prevention: www.cdc.gov [employer]: www.cancer.gov Contact a health care provider if: You have concerns about any signs or symptoms of cancer. These may include: Skin problems. You may have: ?Moles of an unusual shape or color. ?Changes in existing moles. ?A sore on your skin that does not heal. Tiredness (fatigue) that does not go away. Losing weight without trying. Blood in your urine or stool. Problems with urination. You may have: ?Changes in urination habits. ?Painful urination. Painful ejaculation. Problems with coughing or breathing. These may include: ?Coughing or trouble breathing that does not go away. ?Coughing up blood. Frequent pain or cramping in your abdomen. Summary Your health care provider will recommend specific cancer screenings based on your age, medical history, and family history of cancer. Work with your health care provider to create a cancer screening schedule that protects your health. Finding cancer early improves the chances of successful treatment. It may save your life. Contact a health care provider if you have concerns about any signs or symptoms of cancer. This information is not intended to replace advice given to you by your health care provider. Make sure you discuss any questions you have with your health care provider. Document Revised: 04/11/2022 Document Reviewed: 10/09/2020 [employer] Patient Education 2022 [employer] Follow Up Care 12/04/2023 09:44:55 With:ROBERTO JOHN, Myrtle Lechuga, URL Address: [facility] [address] [place] [address]- [phone] When: Unknown [facility] [place] 06-03-2024 Note Patient Education Oncology Cancer Screening for Men A cancer screening is a test or exam that checks for cancer. Your health care provider will recommend specific cancer screenings based on your age, medical history (including risk factors), and family history of cancer. Work with your health care provider to create a cancer screening schedule that protects your health. Who should have screening? All men should be considered for screening of certain cancers, including colorectal cancer, prostate cancer, lung cancer, and skin cancer. Your health care provider may recommend screenings for other types of cancer if: ? You had cancer before. ? You have a family member with cancer. ? You have abnormal genes that could increase the risk of cancer. ? You have risk factors for certain cancers, such as current or past use of tobacco products, or being overweight. When you should be screened for cancer depends on: ? Your age. ? Your medical history and your family's medical history. ? Certain lifestyle factors, such as smoking or other use of tobacco products. ? Environmental exposure, such as to asbestos. How is screening done? Colorectal cancer All adults should have screenings starting at age 45 and continuing until age 75. Your health care provider may recommend screening before age 45. You will have tests every 1?10 years, depending on your results and the type of screening test. People at increased risk should start screening at an earlier age. Talk with your health care provider about which screening test is right for you and how often you should be screened. Colorectal cancer screening looks for cancer or for growths called polyps that often form before cancer starts. Tests to look for cancer or polyps include: ? Colonoscopy or flexible sigmoidoscopy. For these procedures, a flexible tube with a small camera is inserted into the rectum. ? CT colonography. This test uses X-rays and a contrast dye to check the colon for polyps. If a polyp is found, you may need to have a colonoscopy so the polyp can be located and removed. Tests to look for cancer in the stool (feces) include: ? Guaiac-based fecal occult blood test (FOBT). This test can find blood in stool. It can be done at home with a kit. ? Fecal immunochemical test (FIT). This test can find blood in stool. For this test, you will need to collect stool samples at home. ? Stool DNA test. This test looks for blood in stool and any changes in DNA that can lead to colon cancer. For this test, you will need to collect a stool sample at home and send it to a lab. Prostate cancer Prostate cancer screening for men with average risk may start at age 50. Men with risk factors may need to be screened earlier, at ages 40?45. Talk with your health care provider about whether screening is right for you and, if so, how often you should be screened. Prostate cancer screening is done with blood tests and a digital rectal exam. During this exam, a health care provider uses a gloved finger to check prostate size. You may need to be screened for prostate cancer if: ? You have risk factors for prostate cancer, such as being or having a close family member with prostate cancer. ? You have had gene changes or a genetic condition that was passed on to you from a parent (inherited). These gene changes or genetic conditions include BRCA1 or BRCA2 gene mutations or Gabriel syndrome. ? You have symptoms of prostate cancer, such as problems urinating or problems getting or keeping an erection (erectile dysfunction). When you have been screened for prostate cancer, future screening may be recommended based on the results of your blood tests. Lung cancer Lung cancer screening is done with a CT scan that looks for abnormal changes in the lungs. Discuss lung cancer screening with your health care provider if you are 50?80 years old and if any of the following apply to you: ? You currently smoke. ? You used to smoke heavily. ? You have a smoking history of 1 pack of cigarettes a day for 20 years or 2 packs a day for 10 years. ? You have quit smoking within the past 15 years. You may need to be screened every year if you smoke heavily or if you used to smoke. Skin cancer Skin cancer screening is done by checking the skin for unusual moles or spots and any changes in existing moles. Your health care provider should check your skin for signs of skin cancer at every physical exam. You should check your skin every month and tell your health care provider right away if anything looks unusual. Men with a rvhtrf-ljvn-lfyrla risk for skin cancer may want to see a esthetician/skin therapist (roof shingler) for an annual body check. What are the benefits of screening? Cancer screening is done to look for cancer in the very early stages, before it spreads and becomes harder to treat and before you would start to notice symptoms. Finding cancer early improves the chances of success (more content not included)... [facility] 02-23-2022 Note PROCEDURE: US RENAL COMPLETE, 02/22/2022, 10:09 AM EDT CLINICAL INDICATIONS: Microscopic hematuria COMPARISON: None TECHNIQUE: Renal sonogram, grayscale and color assessment FINDINGS: Right kidney: 12.2 x 6.7 x 5.9 cm Left kidney: 12.8 x 6.6 x 6.4 cm Prevoid urinary bladder volume: 312 mL Postvoid urinary bladder volume: 34 mL Renal parenchyma is normal in echogenicity and cortical thickness. Bilateral hydronephrosis is seen. Right extra renal pelvis 2.2 cm, left 2.4 cm. Nephrolithiasis; 0.8 x 0.6 x 0.6 cm lower pole right Urinary bladder abnormality is not detected. Ureteral jets intact bilaterally. [facility] 12-13-2021 Hospital Discharge instructions Follow Up Care 12/13/2021 09:15:58 With:Myrtle MEJIA MD, URL Address: [facility] [address] [place] [address]- When: Unknown [facility] Evaluation + Plan note Future Appointments Appointment Date:12/04/2023 08:45:00 AM Scheduled Provider:Myrtle MEJIA MD Location:[facility] Appointment Type:URO Office Visit Diagnostic Tests PendingPSA Total 12/19/22PSA Total 12/19/22 [facility] Evaluation + Plan note Future Appointments Appointment Date:03/21/2025 08:45:00 AM Scheduled Provider:Myrtle MEJIA MD Location:[facility] Appointment Type:URO Office Visit [facility] Evaluation note Diagnosis Pain Generalized pain documented in this encounter [facility] Phone: evaluation note* Diagnosis Pre-op chest exam Pre-operative respiratory examination documented in this encounter [facility] Phone: evaluation note* Diagnosis Right knee pain, unspecified chronicity documented in this encounter [facility] Phone: evaluation note* Diagnosis Traumatic tear of medial meniscus of right knee, initial encounter documented in this encounter [facility] Phone: evaluation note* Diagnosis Microscopic hematuria Personal history of malignant neoplasm of prostate Personal history of urinary calculi documented in this encounter [facility] Phone: evaluation note* Diagnosis Kidney stone Calculus of kidney documented in this encounter [facility] Phone: evaluation note* Diagnosis Wellness examination Hyperglycemia Other abnormal glucose Screening cholesterol level Screening for lipoid disorders documented in this encounter [facility] Phone: evaluation note* Diagnosis Personal history of malignant neoplasm of prostate- [facility] Personal history of malignant neoplasm of prostate Liver lesion Other specified disorders of liver documented in this encounter [facility] note* Diagnosis Personal history of malignant neoplasm of prostate [facility] Diagnosis Age-related nuclear cataract of both eyes- Primary [facility] Diagnosis Malignant neoplasm of prostate (HCC)- Primary Malignant neoplasm of prostate [facility] noteNo assessment information [facility] Phone: Evaluation note* Diagnosis Screening for lipid disorders Hyperglycemia Other abnormal glucose documented in this encounter [facility] note* Diagnosis Pseudophakia- Primary Lens replaced by other means documented [facility]* Diagnosis Malignant neoplasm of prostate (HCC)- Primary Malignant neoplasm of prostate [facility] Diagnosis Diarrhea, unspecified type- Primary Prostate cancer (HCC) Malignant neoplasm of prostate Diarrhea, unspecified type documented in this encounter [facility] note* Diagnosis Malignant neoplasm of prostate (HCC)- Primary Malignant neoplasm of prostate [facility] Narrative No data available for this section [facility] No data available for this section [facility] Diagnosis Left knee pain, unspecified chronicity Diagnosis Internal derangement of left knee Unspecified internal derangement of knee Advance Directives No Advanced Directives Records FoundDocuments on File Type Date Recorded Patient Senior Portfolio Manager Expl anation ACP-Advance Directive ACP-Power of Academic Services Coordinator Latest Code Status on File Code Status Date Activated Date Inactivated Comments Full Code 11/14/2012 7:05 AM 11/14/2012 1:15 PM Documents on File Type Date Recorded Patient Senior Portfolio Manager Expl anation ACP-Advance Directive ACP-Power of Academic Services Coordinator Latest Code Status on File Code Status Date Activated Date Inactivated Comments Full Code 11/14/2012 7:05 AM 11/14/2012 1:15 PM Documents on File Type Date Recorded Patient Senior Portfolio Manager Expl anation Advance Directives and Living Will Power of Academic Services Coordinator Healthcare Agents on File Name Relationship Healthcare Agent Relationshi p Communication Vikki Ndiaye Spouse Primary Decision Maker Healthcare Agents on File Name Relationship Healthcare Agent Relationshi p Communication Vikki Ndiaye Spouse Primary Decision Maker Healthcare Agents on File Name Relationship Healthcare Agent Relationshi p Communication Vikki Ndiaye Spouse Primary Decision Maker Healthcare Agents on File Name Relationship Healthcare Agent Relationshi p Communication Vikki Ndiaye Spouse Primary Decision Maker Healthcare Agents on File Name Relationship Healthcare Agent Relationshi p Communication Vikki Ndiaye Spouse Primary Decision Maker Latest Code Status on File Code Status Date Activated Date Inactivated Comments Full Code 09/29/2022 8:32 AM Full Code 11/14/2012 7:05 AM 11/14/2012 1:15 PM Healthcare Agents on File Name Relationship Healthcare Agent Relationshi p Communication Vikki Ndiaye Spouse Primary Decision Maker Latest Code Status on File Code Status Date Activated Date Inactivated Comments Full Code 09/29/2022 8:32 AM Code Status History Code Status Date Activated Date Inactivated Comments Full Code 11/14/2012 7:05 AM 11/14/2012 1:15 PM Healthcare Agents on File Name Relationship Healthcare Agent Relationshi p Communication Vikki Ndiaye Spouse Primary Decision Maker Healthcare Agents on File Name Relationship Healthcare Agent Relationshi p Communication Vikki Ndiaye Spouse Primary Decision Maker Date Activated Date Inactivated Comments 09/29/2022 8:32 AM Date Activated Date Inactivated Comments 11/14/2012 7:05 AM 11/14/2012 1:15 PM Healthcare Agents on File Name Relationship Healthcare Agent Relationshi p Communication Vikki Ndiaye Spouse Primary Decision Maker Date Activated Date Inactivated Comments 09/29/2022 8:32 AM Date Activated Date Inactivated Comments 11/14/2012 7:05 AM 11/14/2012 1:15 PM Healthcare Agents on File Name Relationship Healthcare Agent Relationshi p Communication Vikki Ndiaye Spouse Primary Decision Maker Healthcare Agents on File Name Relationship Healthcare Agent Relationshi p Communication Vikki Ndiaye Spouse Primary Decision Maker Reason for Referral Status Reason Specialty Diagnoses / Procedures Referred By Contact Referred To Contact Pending Review Radiology Diagnoses Internal derangement of left knee Procedures MRI KNEE LEFT WO CONTRAST Boubacar Vuong, DO [address] [place] [address] Status Reason Specialty Diagnoses / Procedures Referre d By Contact Referred To Contact Closed Radiology Diagnoses Traumatic tear of medial meniscus of right knee, initial encounter Procedures MRI KNEE RIGHT WO CONTRAST Boubacar Vuong, [address] [place] [address] Specialty Diagnoses / Procedures Referred By Reno t Referred To Contact Radiology Diagnoses Microscopic hematuria Personal history of malignant neoplasm of prostate Personal history of urinary calculi Procedures US RENAL COMPLETE Myrtle Mejia [address] [place] [address] Referral ID Status Reason Start Date Expiration Date Visits Re quested Visits Authorized [id number] Closed 01/27/2022 01/27/2023 1 1 Specialty Diagnoses / Procedures Referred By Reno raza Referred To Contact MR IMAGING Diagnoses Personal history of malignant neoplasm of prostate Procedures MRI 3D POST PROCESSING 3D RENDERING W/INTERP&POSTPROC DIFF WORK STATION Olivia Ledesma MD [address] [place] [address] [place] [address] Referral ID Status Reason Start Date Expiration Date Visits Requested Visits Authorized [id number] New Request Auto-Generat ed Referral 07/11/2024 08/10/2025 1 1 Specialty Diagnoses / Procedures Referred By Contac t Referred To Contact MR IMAGING Diagnoses Personal history of malignant neoplasm of prostate Procedures MRI PROSTATE WO/W IVCON MRI PELVIS W/O & W/CONTRAST MATERIAL Olivia Ledesma MD [address] [place] [address] [address] [place] [id number] Mr Imaging [facility] Referral ID Status Reason Start Date Expiration Date Visits Requested Visits Authorized [id number] Authorized Auto-Generat ed Referral 07/11/2024 08/10/2025 1 1 Specialty Diagnoses / Procedures Referred By Contac t Referred To Contact MR IMAGING Diagnoses Personal history of malignant neoplasm of prostate Procedures MRI LIVER WO/W IVCON MRI ABDOMEN W/O & W/CONTRAST MATERIAL Olivia Ledesma MD [address] [place] [address] [place] [address] Mr Imaging [facility] Referral ID Status Reason Start Date Expiration Date Visits Requested Visits Authorized [id number] New Request Auto-Generat ed Referral 07/11/2024 08/10/2025 1 1 Specialty Diagnoses / Procedures Referred By Contac t Referred To Contact Radiology Diagnoses Personal history of malignant neoplasm of prostate Liver lesion Procedures MRI ABDOMEN W WO CONTRAST Zachary Ledesma MD [facility] [place] [address] Referral ID Status Reason Start Date Expiration Date V isits Requested Visits Authorized [id number] Not Required - RTA 07/15/2024 07/15/2025 1 1 Referral ID Status Reason Start Date Expiration Date V isits Requested Visits Authorized [id number] Closed Auto-Generate d Referral 07/11/2024 08/10/2025 1 1 Summary Purpose Family History No Family History Records Found Additional Source Comments Reason for Visit (unrecogniz ed section and content) Status Reason Specialty Diagnoses / Procedures Referre d By Contact Referred To Contact Closed Radiology Diagnoses Unspecified internal derangement of left knee Procedures MRI KNEE LEFT WO CONTRAST Boubacar Vuong, DO [address] [place] [address] [facility] [address] [place] [address] Status Reason Specialty Diagnoses / Procedures Referre d By Contact Referred To Contact Closed Radiology Diagnoses Traumatic tear of medial meniscus of right knee, initial encounter Procedures MRI KNEE RIGHT WO CONTRAST Boubacar Vuong, DO [address] [place] [address] Specialty Diagnoses / Procedures Referred By Contac t Referred To Contact Radiology Diagnoses Microscopic hematuria Personal history of malignant neoplasm of prostate Personal history of urinary calculi Procedures US RENAL COMPLETE Myrtle Mejia R [address] [place] [address] Referral ID Status Reason Start Date Expiration Date Visits Re quested Visits Authorized [id number] Closed 01/27/2022 01/27/2023 1 1 Reason Comments Prostate Cancer Specialty Diagnoses / Procedures Referred By Contac t Referred To Contact Radiology Diagnoses Personal history of malignant neoplasm of prostate Liver lesion Procedures MRI ABDOMEN W WO CONTRAST Zachary Ledesma MD [address] [place] [address] [place] [address] Referral ID Status Reason Start Date Expiration Date V isits Requested Visits Authorized [id number] Not Required - RTA 07/15/2024 07/15/2025 1 1 Reason Comments Radiology NM Specialty Diagnoses / Procedures Referred By Contac t Referred To Contact MR IMAGING Diagnoses Personal history of malignant neoplasm of prostate Procedures MRI PROSTATE WO/W IVCON MRI PELVIS W/O & W/CONTRAST MATERIAL Olivia Ledesma MD [address] [place] [address] [place] [address] Mr Imaging [facility] Referral ID Status Reason Start Date Expiration Date V isits Requested Visits Authorized [id number] Closed Auto-Generate d Referral 07/11/2024 08/10/2025 1 1 Reason Comments Cataract Reason Comments Prostate Cancer Follow up Reason Comments Post-op Reason Comments Prostate Cancer Reason Comments Volume Study Care Teams (unrecognized sec tion and content) Vocational Rehabilitation Counselor Relationship Specialty Start Date End Date Back, MD Awais [address] [place] [phone] PCP - General Internal Medicine 03/10/21 Vocational Rehabilitation Counselor Relationship Specialty Start Date End Date Back, MD Awais [address] [place] [address] PCP - General Internal Medicine 03/10/21 Vocational Rehabilitation Counselor Relationship Specialty Start Date End Date Back, MD Awais [address] [place] [address] PCP - General Internal Medicine 03/10/21 Vocational Rehabilitation Counselor Relationship Specialty Start Date End Date Back, MD Awais [address] [place] [address] PCP - General Internal Medicine 03/10/21 Vocational Rehabilitation Counselor Relationship Specialty Start Date End Date Back, MD Awais [address] [place] [address] PCP - General Internal Medicine 03/10/21 Vocational Rehabilitation Counselor Relationship Specialty Start Date End Date Back, MD Awais [address] [place] [address] PCP - General Internal Medicine 03/10/21 Vocational Rehabilitation Counselor Relationship Specialty Start Date End Date Back, MD Awais [address] [place] [address] PCP - General Internal Medicine 03/10/21 Vocational Rehabilitation Counselor Relationship Specialty Start Date End Date BackLuiz [address] [place] [phone] PCP - General Internal Medicine 07/11/24 Vocational Rehabilitation Counselor Relationship Specialty Start Date End Date Back, MD Awais [address] [phone] PCP - General Internal Medicine 03/10/21 Vocational Rehabilitation Counselor Relationship Specialty Start Date End Date Kendrick Swenson MD PCP - General Family Medicine 02/06/13 07/10/24 Vocational Rehabilitation Counselor Relationship Specialty Start Date End Date BackLuiz [address] [place] [phone] PCP - General Internal Medicine 07/11/24 Vocational Rehabilitation Counselor Relationship Specialty Start Date End Date Back, MD Luiz [address] [id number] PCP - General Family Medicine 08/27/24 Vocational Rehabilitation Counselor Relationship Specialty Start Date End Date BackLuiz [address] [phone] PCP - General Internal Medicine 07/11/24 Team Status: Inactive Member Role Status Dates Myrtle Mejia MD Attending Provider Active art: September 10, 2024 End: September 10, 2024 Vocational Rehabilitation Counselor Relationship Specialty Start Date End Date BackAwais MD [address] [phone] PCP - General Internal Medicine 03/10/21 Vocational Rehabilitation Counselor Relationship Specialty Start Date End Date BackLuiz [address] [place] [address] PCP - General Internal Medicine 07/11/24 Vocational Rehabilitation Counselor Relationship Specialty Start Date End Date Back, MD Luiz [address] [phone] PCP - General Family Medicine 08/27/24 Vocational Rehabilitation Counselor Relationship Specialty Start Date End Date Back, MD Luiz [address] [id number] PCP - General Family Medicine 08/27/24 Vocational Rehabilitation Counselor Relationship Specialty Start Date End Date Back, Luiz [address] [place] [address] PCP - General Internal Medicine 07/11/24 Vocational Rehabilitation Counselor Relationship Specialty Start Date End Date Back, MD Awais [address] [id number] PCP - General Internal Medicine 03/10/21 Vocational Rehabilitation Counselor Relationship Specialty Start Date End Date Back, Luiz [address] [place] [phone] PCP - General Internal Medicine 07/11/24 Vocational Rehabilitation Counselor Relationship Specialty Start Date End Date Back, Luiz [address] [place], [place] [phone] PCP - General Internal Medicine 07/11/24 Source Comments (unrecognize d section and content) In the event this informatio n is protected by the Federal Confidentiality of Alcohol and Drug Abuse Patient Records regulations: The Federal rules restrict any use of the information to criminally investigate or prosecute any alcohol or drug abuse patient.[facility] the event this information is protected by the Federal Confidentiality of Alcohol and Drug Abuse Patient Records regulations: The Federal rules restrict any use of the information to criminally investigate or prosecute any alcohol or drug abuse patient.[facility] the event this information is protected by the Federal Confidentiality of Alcohol and Drug Abuse Patient Records regulations: The Federal rules restrict any use of the information to criminally investigate or prosecute any alcohol or drug abuse patient.[facility] the event this information is protected by the Federal Confidentiality of Alcohol and Drug Abuse Patient Records regulations: The Federal rules restrict any use of the information to criminally investigate or prosecute any alcohol or drug abuse patient.[facility] the event this information is protected by the Federal Confidentiality of Alcohol and Drug Abuse Patient Records regulations: The Federal rules restrict any use of the information to criminally investigate or prosecute any alcohol or drug abuse patient.[facility] the event this information is protected by the Federal Confidentiality of Alcohol and Drug Abuse Patient Records regulations: The Federal rules restrict any use of the information to criminally investigate or prosecute any alcohol or drug abuse patient.[facility] the event this information is protected by the Federal Confidentiality of Alcohol and Drug Abuse Patient Records regulations: The Federal rules restrict any use of the information to criminally investigate or prosecute any alcohol or drug abuse patient.[facility] the event this information is protected by the Federal Confidentiality of Alcohol and Drug Abuse Patient Records regulations: The Federal rules restrict any use of the information to criminally investigate or prosecute any alcohol or drug abuse patient.[facility] Goals (unrecognized section and content) Goals may be documented in a n alternate section (unrecognized sect ion and content) No Status Records FoundNo Status Records FoundNo Status Records FoundNo Status Records FoundNo Status Records Found INFORMATION SOURCE (unrecogn ized section and content) DATE CREATED AUTHOR 10/03/2024 [facility] DATE CREATED AUTHOR AUTHOR'S ORGANIZ ATION 10/10/2024 [facility] DATE CREATED AUTHOR AUTHOR'S ORGANIZ ATION 10/19/2024 [facility] DATE CREATED AUTHOR AUTHOR'S ORGANIZ ATION 12/09/2024 Deena elena DATE CREATED AUTHOR AUTHOR'S ORGANIZ ATION 12/10/2024 [facility] FOR RECORDS PERTAINING TO PATIENTS WHO ARE OR HAVE BEEN ENROLLED IN A CHEMICAL DEPENDENCY/SUBSTANCEABUSE PROGRAM, SOME INFORMATION MAY BE OMITTED. This clinical summary was aggregated from multiple sources. Caution should be exercised in using it in the provision of clinical care. This summary normalizes information from multiple sources, and as a consequence, information in this document may materially change the coding, format and clinical context of patient data. In addition, data may be omitted in some cases. CLINICAL DECISIONS SHOULD BE BASED ON THE PRIMARY CLINICAL RECORDS. [employer] [facility] provides no warranty or guarantee of the accuracy or completeness of information in this document.
[2024-12-12 07:10] VITALS: BP 154/93; PULSE 76; TEMP 36.3; O2SAT 97; BMI 28.4
[2024-12-12] MEDS: LACTATED RINGER'S SOLUTION 1,000 ML 50 ML IV (07:40)
[2024-12-12] MEDS: CEFAZOLIN SODIUM 2 GM/50 ML D5W PREMIX IV (08:03)
--- NOTE | 2024-12-12 08:41 | PC.NURSE ---
Surgery cancelled due to equipment failure; did not receive anesthesia
== END 2024-12-12 08:40 | disposition home or self-care (01) ==
PROVIDERS: PCP Internal Medicine; Visit Provider Urology
PROC: (CPT 55875; principal; 2024-12-12 08:00)
DX: C61 Malignant neoplasm of prostate (principal); Z53.8 Procedure and treatment not carried out for other reasons; R31.9 Hematuria, unspecified; Z87.442 Personal history of urinary calculi; N52.9 Male erectile dysfunction, unspecified
CPT/HCPCS: 55875; 36415; J0690